=== PATIENT | female | born 1955 | race African-American/Black ===

== ENCOUNTER 2016-09-18 07:25 | Observation (INO) | payer MEDICAID ==
[~2016-09-18] VITALS: Ht 160 cm; Wt 94.8 kg
[~2016-09-18 07:25] MED LIST: ALBU0.084 NEB; ALBUAER3 IN; ALPR2TAB95 PO; ATO40T PO; CARI-277 PO; CARV3.1213 PO; CETI10CH PO; CHOL20007 PO; FURO40TA PO; GABA-339 PO; IPRA0.035 NEB; LEVO500T3 PO; LISI-713 PO; METF-312 PO; NOR10T PO; POT8T PO; PRED-188 PO; QUET200T30 PO
[2016-09-18 09:10] LABS: Urine Bilirubin Negative (Negative); Urine Blood Negative /uL (Negative); Urine Color Yellow (Yellow); Urine Glucose Normal (Normal); Urine Ketone Negative (Negative); Urine Nitrite Negative (Negative); Urine RBC <1 /hpf (0 - 4); Urine Squamous Epithelial Cell FEW /hpf (<5); Urine Urobilinogen Normal (Negative); Urine pH 5.5 (5.0-8.0)
[2016-09-18] MEDS ORDERED: SODIUM CHLORIDE 0.9% 1,000 ML IV ONE (09:10)
[2016-09-18] MEDS ORDERED: METOCLOPRAMIDE HCL 5MG/ml INJ 2ml VIAL IV ONE (09:15)
[2016-09-18] MEDS ORDERED: KETOROLAC TROMETH 30 MG/ML 1ML VIAL IV ONE (09:15)
[2016-09-18 09:44] LABS: Basophils # (auto) 0 uL; Basophils % (auto) 0.8 % (0.0-2.0); Eosinophils # (auto) 0.2 uL; Hemoglobin 13.7 g/dL (12.2-16.2); Lymphocytes # (auto) 2.4 uL; Lymphocytes % (auto) 38.4 % (10.0-50.0); Mean Corpuscular Hemoglobin 30.9 pg (28.0-32.0); Mean Corpuscular Hgb Conc. 32.5 g/dL (32.0-36.0); Mean Corpuscular Volume 94.8 fL (80.0-100.0); Mean Platelet Volume 8.1 fL (7.4-10.4); Monocytes # (auto) 0.7 uL; Monocytes % (auto) 10.6 % (0.0-12.0); Neutrophils # (auto) 2.9 uL; Neutrophils % (auto) 46.2 % (37.0-80.0); Platelet Count (auto) 312 10^3/uL (140-450); White Blood Cell 6.3 10^3/uL (4.4-10.8)
[2016-09-18 09:58] LABS: BUN/Creatinine Ratio 19.8; Calcium 8.8 mg/dL (8.5-10.1); Magnesium 2.1 mg/dL (1.6-2.6)
[2016-09-18 10:00] LABS: Bilirubin, Total 0.3 mg/dL (0.2-1.0); Potassium 4.5 mmol/L (3.5-5.1); Total Protein 7.4 g/dL (6.4-8.2)
[2016-09-18 10:52] VITALS: BP 151/103
== END 2016-09-18 11:48 | disposition home or self-care (01) | DRG 347 ==
LOC: ER 07:25 → OVERFLOW 09:12 → ER 11:48
PROVIDERS: ADMIT Emergency Medicine; ATTEND Emergency Medicine
DX: S33.5XXA Sprain of ligaments of lumbar spine, initial encounter (principal); I11.0 Hypertensive heart disease with heart failure; I50.9 Heart failure, unspecified; S80.12XA Contusion of left lower leg, initial encounter; J44.9 Chronic obstructive pulmonary disease, unspecified; M25.551 Pain in right hip; E11.9 Type 2 diabetes mellitus without complications; F41.9 Anxiety disorder, unspecified; Z96.641 Presence of right artificial hip joint; E44.1 Mild protein-calorie malnutrition; W18.09XA Striking against other object with subsequent fall, initial encounter; Y93.89 Activity, other specified; Y92.89 Other specified places as the place of occurrence of the external cause; Y99.8 Other external cause status; Z83.3 Family history of diabetes mellitus
CPT/HCPCS: 36415; 72100; 73590; 80053; 81001; 83735; 85025; 96361; 96374; 96375; 99285; G0378; G0434; J1885; J2765; J7030

== ENCOUNTER 2016-10-28 18:39 | Observation (INO) | payer MEDICAID ==
[~2016-10-28] VITALS: Ht 157.5 cm; Wt 104.3 kg
[2016-10-28 19:24] LABS: Basophils # (auto) 0 uL; Basophils % (auto) 0.3 % (0.0-2.0); Eosinophils # (auto) 0.2 uL; Eosinophils % (auto) 2.9 % (0.0-7.0); Hematocrit 36.6 % (36.0-46.0); Hemoglobin 12.2 g/dL (12.2-16.2); Lymphocytes # (auto) 3.5 uL; Lymphocytes % (auto) 41.7 % (10.0-50.0); Mean Corpuscular Hemoglobin 31.6 pg (28.0-32.0); Mean Corpuscular Hgb Conc. 33.2 g/dL (32.0-36.0); Mean Corpuscular Volume 95.2 fL (80.0-100.0); Mean Platelet Volume 8.8 fL (7.4-10.4); Monocytes # (auto) 0.9 uL; Monocytes % (auto) 10.5 % (0.0-12.0); Neutrophils # (auto) 3.7 uL; Neutrophils % (auto) 44.6 % (37.0-80.0); Platelet Count (auto) 294 10^3/uL (140-450); Red Cell Distribution Width 13.4 % (11.6-16.0); White Blood Cell 8.3 10^3/uL (4.4-10.8)
[2016-10-28 19:34] LABS: Albumin 3.2 g/dL (3.4-5.0); Anion Gap 8 (5-15); Calcium 8.4 mg/dL (8.5-10.1); Carbon Dioxide 27 mmol/L (21-32); Chloride 110 mmol/L (98-107); Glucose 112 mg/dL (74-106); Magnesium 1.9 mg/dL (1.6-2.6); Potassium 4.6 mmol/L (3.5-5.1); Sodium 145 mmol/L (136-145)
[2016-10-28 19:36] LABS: Aspartate Aminotransferase 50 U/L (15-37); BUN/Creatinine Ratio 22.1; Bilirubin, Total 0.2 mg/dL (0.2-1.0); Blood Urea Nitrogen 38 mg/dL (7-18); GFR African American 39 mL/min; GFR Non-African American 32 mL/min; Total Protein 7.2 g/dL (6.4-8.2)
[2016-10-28 19:44] LABS: Alkaline Phosphatase 84 U/L (45-117)
[2016-10-28] MEDS ORDERED: ONDANSETRON HCL 4 MG/2 ML VIAL IV ONE (23:30)
[2016-10-28] MEDS ORDERED: KETOROLAC TROMETH 30 MG/ML 1ML VIAL IV ONE (23:30)
[2016-10-28] MEDS ORDERED: HYDROmorphone HCL 2 MG/ML VL IV ONE (23:30)
[2016-10-29 00:13] LABS: Anion Gap 7 (5-15); Aspartate Aminotransferase 46 U/L (15-37); BUN/Creatinine Ratio 30.1; Basophils # (auto) 0.1 uL; Basophils % (auto) 1.4 % (0.0-2.0); Blood Urea Nitrogen 40 mg/dL (7-18); Calcium 8.4 mg/dL (8.5-10.1); Carbon Dioxide 26 mmol/L (21-32); Chloride 110 mmol/L (98-107); Eosinophils # (auto) 0.3 uL; GFR African American 52 mL/min; GFR Non-African American 43 mL/min; Glucose 99 mg/dL (74-106); Hematocrit 35.8 % (36.0-46.0); Hemoglobin 11.8 g/dL (12.2-16.2); Lymphocytes # (auto) 3.4 uL; Lymphocytes % (auto) 44.2 % (10.0-50.0); Magnesium 2.1 mg/dL (1.6-2.6); Mean Corpuscular Hemoglobin 30.8 pg (28.0-32.0); Mean Corpuscular Hgb Conc. 32.9 g/dL (32.0-36.0); Mean Corpuscular Volume 93.6 fL (80.0-100.0); Mean Platelet Volume 8.6 fL (7.4-10.4); Monocytes # (auto) 0.9 uL; Monocytes % (auto) 11.9 % (0.0-12.0); Neutrophils % (auto) 38.5 % (37.0-80.0); Platelet Count (auto) 233 10^3/uL (140-450); Potassium 4.5 mmol/L (3.5-5.1); Red Cell Distribution Width 12.2 % (11.6-16.0); Sodium 143 mmol/L (136-145); White Blood Cell 7.7 10^3/uL (4.4-10.8)
[2016-10-29 00:15] LABS: B-Type Natriuretic Peptide 22.39 pg/mL (0-100)
[2016-10-29 00:15] LABS: Urine Bilirubin Negative (Negative); Urine Blood Negative /uL (Negative); Urine Color Yellow (Yellow); Urine Glucose Normal (Normal); Urine Ketone Negative (Negative); Urine Nitrite Negative (Negative); Urine RBC <1 /hpf (0 - 4); Urine Urobilinogen Normal (Negative); Urine pH 5.5 (5.0-8.0)
[2016-10-29 00:18] LABS: Alkaline Phosphatase 77 U/L (45-117); Bilirubin, Total 0.4 mg/dL (0.2-1.0); Total Protein 6.8 g/dL (6.4-8.2)
[2016-10-29 00:19] LABS: Temperature: 23.1 C (20.0-25.0)
[2016-10-29 00:25] LABS: INR 0.96 (0.9-1.15); Partial Thromboplastin Time 25.4 sec (22.64-33.71); Prothrombin Time 10.4 sec (9.37-12.3)
[2016-10-29 05:09] VITALS: BP 118/88
== END 2016-10-29 05:30 | disposition home or self-care (01) | DRG 141 ==
LOC: ER 18:40 → OVERFLOW 23:29 → ER 10-29 05:30
PROVIDERS: ADMIT Emergency Medicine; ATTEND Emergency Medicine
DX: J45.901 Unspecified asthma with (acute) exacerbation (principal); I11.0 Hypertensive heart disease with heart failure; I50.9 Heart failure, unspecified; M54.16 Radiculopathy, lumbar region; E11.9 Type 2 diabetes mellitus without complications; M19.90 Unspecified osteoarthritis, unspecified site; F41.9 Anxiety disorder, unspecified
CPT/HCPCS: 36415; 71010; 80053; 81001; 83735; 83880; 84484; 85025; 85610; 85730; 93005; 96374; 96375; 99285; G0378; J1170; J1885; J2405

== ENCOUNTER → 2016-10-29 | Outpatient (CLI) | payer MEDICAID | END | disposition home or self-care (01) | LOC: Rad HDHVI 13:38 | PROVIDERS: ATTEND Internal Medicine Cardiovascular Disease | DX: R00.9 Unspecified abnormalities of heart beat (principal) | CPT/HCPCS: 93306 ==

== ENCOUNTER 2016-12-04 06:01 | Inpatient (IN) | payer MEDICAID ==
[~2016-12-04] VITALS: Ht 160 cm; Wt 104.0 kg
[~2016-12-04 06:01] MED LIST changes: +CAR3125T PO; -CARV3.1213 PO; +LEVO500T21 PO; -LEVO500T3 PO; -METF-312 PO; +METF-370 PO
[2016-12-04] MEDS ORDERED: IPRATROPIUM BROM 0.5 MG/2.5ML INH SOL NEB ONE ×2 (06:15→10:00)
[2016-12-04] MEDS ORDERED: ALBUTEROL SULF 2.5 MG/0.5ML(0.5%) NEB SOLN NEB ONE ×2 (06:15→10:00)
[2016-12-04 08:13] LABS: Basophils # (auto) 0.1 uL; CONDITION Y; Eosinophils # (auto) 0.1 uL; Eosinophils % (auto) 1.4 % (0.0-7.0); Hematocrit 39.2 % (36.0-46.0); Hemoglobin 13.3 g/dL (12.2-16.2); Lymphocytes # (auto) 2.4 uL; Mean Corpuscular Hemoglobin 31.9 pg (28.0-32.0); Mean Platelet Volume 9.1 fL (7.4-10.4); Monocytes # (auto) 0.6 uL; Monocytes % (auto) 7.6 % (0.0-12.0); Neutrophils # (auto) 5.2 uL; Platelet Count (auto) 295 10^3/uL (140-450); Red Cell Distribution Width 13.1 % (11.6-16.0); SUSPECT SEE PRINTOUT; White Blood Cell 8.4 10^3/uL (4.4-10.8)
[2016-12-04 08:19] LABS: INR 0.93 (0.9-1.15); Partial Thromboplastin Time 23.9 sec (22.64-33.71); Prothrombin Time 10.1 sec (9.37-12.3)
[2016-12-04 08:39] LABS: Alkaline Phosphatase 82 U/L (45-117); Anion Gap 7 (5-15); Aspartate Aminotransferase 32 U/L (15-37); BUN/Creatinine Ratio 27.6; Bilirubin, Total 0.2 mg/dL (0.2-1.0); Blood Urea Nitrogen 21 mg/dL (7-18); Calcium 8.7 mg/dL (8.5-10.1); Carbon Dioxide 25 mmol/L (21-32); Chloride 109 mmol/L (98-107); GFR African American 99 mL/min; GFR Non-African American 82 mL/min; Glucose 122 mg/dL (74-106); Magnesium 2.1 mg/dL (1.6-2.6); Potassium 4.3 mmol/L (3.5-5.1); Sodium 141 mmol/L (136-145); Total Protein 7.2 g/dL (6.4-8.2)
[2016-12-04 08:41] LABS: B-Type Natriuretic Peptide 54.19 pg/mL (0-100)
[2016-12-04 08:52] LABS: Temperature: 24.1 C (20.0-25.0)
[2016-12-04 09:28] LABS: Urine Bilirubin Negative (Negative); Urine Blood Negative /uL (Negative); Urine Color Yellow (Yellow); Urine Glucose Normal (Normal); Urine Ketone Negative (Negative); Urine Nitrite Negative (Negative); Urine RBC <1 /hpf (0 - 4); Urine Squamous Epithelial Cell FEW /hpf (<5); Urine Urobilinogen Normal (Negative)
[2016-12-04] MEDS ORDERED: SODIUM CHLORIDE 0.9% 1,000 ML IV SCH (09:55)
[2016-12-04] MEDS ORDERED: LORazepam 0.5 MG TAB PO PRN (10:00)
[2016-12-04] MEDS ORDERED: PATIENTS OWN MEDICATION (Lisinopril (Zestril) 1 TAB) PO SCH (10:00)
[2016-12-04] MEDS ORDERED: DEXTROSE (50%) 50ML SYRG IV PRN (10:00)
[2016-12-04] MEDS ORDERED: methylPREDNISolone SOD SUCC 125 MG/2 ML VL IV ONE (10:00)
[2016-12-04] MEDS ORDERED: CETIRIZINE HCL 10 MG PO PRN (10:00)
[2016-12-04] MEDS ORDERED: TEMAZEPAM 15 MG CAP PO PRN (10:00)
[2016-12-04] MEDS ORDERED: MORPHINE SULF INJ 2 MG/ML SYRINGE 1ML IV PRN (10:00)
[2016-12-04] MEDS ORDERED: LACTULOSE 20Gm/30ML SOLN PO PRN (10:00)
[2016-12-04] MEDS ORDERED: HYDROcodone-ACET 10/325MG TAB PO PRN (10:00)
[2016-12-04] MEDS ORDERED: PATIENTS OWN MEDICATION (Atorvastatin Calcium (Lipitor) 1 TAB) PO SCH ×2 (10:00)
[2016-12-04] MEDS ORDERED: CARISOPRODOL 350 MG TAB PO PRN (10:00)
[2016-12-04] MEDS ORDERED: PROMETHAZINE HCL 25 MG/ML 1ML IV PRN (10:00)
[2016-12-04] MEDS ORDERED: NITROGLYCERIN 0.4 MG SL TAB SL PRN (10:00)
[2016-12-04] MEDS ORDERED: ALBUTEROL SULF 2.5 MG/0.5ML(0.5%) NEB SOLN NEB PRN (10:00)
[2016-12-04] MEDS ORDERED: PATIENTS OWN MEDICATION (Cholecalciferol (Vitamin D3) 1 TAB) PO SCH ×2 (10:00)
[2016-12-04] MEDS ORDERED: ACETAMINOPHEN 500 MG TAB PO PRN (10:00)
[2016-12-04] MEDS ORDERED: LISINOPRIL 20 MG TAB PO ONE (10:30)
[2016-12-04] MEDS ORDERED: LORATADINE 10 MG TAB PO ONE (10:30)
[2016-12-04] MEDS: DOXYCYCLINE HYC 100MG/250ML 250 ML IV SCH ×2 (10:58→22:01)
[2016-12-04] MEDS: ASPirin 81 mg TAB PO SCH (10:58)
[2016-12-04] MEDS: CHOLECALCIFEROL (VITD3) 1,000 UNIT TAB PO SCH (10:59)
[2016-12-04] MEDS: POTASSIUM CHLORIDE 8 MEQ TAB PO SCH (10:59)
[2016-12-04] MEDS: FUROSEMIDE 40 MG TAB PO SCH (10:59)
[2016-12-04] MEDS: ENOXAPARIN SOD 40 MG/0.4 ML SYRINGE SC SCH (10:59)
[2016-12-04 11:00] VITALS: BP 160/76
[2016-12-04] MEDS: NITROGLYCERIN 0.2MG/HR TOPICAL PATCH TD SCH (11:00)
[2016-12-04] MEDS: CARVEDILOL 3.125 MG TAB PO SCH ×2 (11:00→22:00)
[2016-12-04] MEDS: MORPHINE SULF INJ 2 MG/ML SYRINGE 1ML IV PRN ×2 (11:09→16:18)
[2016-12-04] MEDS: IPRATROPIUM BROM 0.5 MG/2.5ML INH SOL NEB SCH (11:34)
[2016-12-04] MEDS: ALBUTEROL SULF 2.5 MG/0.5ML(0.5%) NEB SOLN NEB SCH (11:35)
[2016-12-04 11:57] VITALS: BP 162/75
[2016-12-04] MEDS ORDERED: IOHEXOL 350 MG/ML 100ML IJ ONE (12:24)
[2016-12-04] MEDS: InsuLIN REG 1unit/0.01ml Soln (100units/ml) SC SCH ×3 (13:37→22:01)
[2016-12-04] MEDS: ACCU-CHEK COMFORT CURVE STRIP VI SCH ×3 (13:37→22:01)
[2016-12-04] MEDS ORDERED: ALPRAZOLAM PO SCH (14:00)
[2016-12-04] MEDS ORDERED: PATIENTS OWN MEDICATION (Gabapentin 1 TAB) PO SCH ×2 (14:00)
[2016-12-04] MEDS: methylPREDNISolone SOD SUCC 40 MG/ML VL IV SCH ×2 (14:13→17:18)
[2016-12-04] MEDS: ALPRAZolam 0.5 MG TAB PO SCH (14:13)
[2016-12-04] MEDS: GABAPENTIN 300 MG CAP PO SCH ×2 (14:14→21:59)
[2016-12-04 17:00] VITALS: BP 157/74
[2016-12-04] MEDS: QUEtiapine FUMARATE 100 MG TAB PO SCH (17:20)
[2016-12-04] MEDS ORDERED: QUETIAPINE FUMERATE 200 MG PO SCH (18:00)
[2016-12-04 22:00] VITALS: BP 123/70
[2016-12-04] MEDS ORDERED: ATORVASTATIN 20 MG TAB PO SCH (22:00)
[2016-12-04] MEDS: LISINOPRIL 20 MG TAB PO SCH (22:00)
[2016-12-04] MEDS: HYDROmorphone HCL 2 MG/ML VL IV PRN (22:02)
[2016-12-05] MEDS: methylPREDNISolone SOD SUCC 40 MG/ML VL IV SCH ×4 (00:05→17:25)
[2016-12-05] MEDS: ALPRAZolam 0.5 MG TAB PO SCH ×3 (00:06→14:00)
[2016-12-05] MEDS: IPRATROPIUM BROM 0.5 MG/2.5ML INH SOL NEB SCH ×4 (00:16→18:00)
[2016-12-05] MEDS: ALBUTEROL SULF 2.5 MG/0.5ML(0.5%) NEB SOLN NEB SCH ×4 (00:16→18:00)
[2016-12-05 05:00] VITALS: BP 143/68
[2016-12-05] MEDS: GABAPENTIN 300 MG CAP PO SCH ×2 (05:42→13:11)
[2016-12-05] MEDS: HYDROmorphone HCL 2 MG/ML VL IV PRN ×3 (06:23→19:06)
[2016-12-05] MEDS: ACCU-CHEK COMFORT CURVE STRIP VI SCH ×3 (06:56→17:24)
[2016-12-05] MEDS: InsuLIN REG 1unit/0.01ml Soln (100units/ml) SC SCH ×3 (06:57→17:30)
[2016-12-05 07:30] VITALS: BP 143/68
[2016-12-05 08:00] LABS: Cholesterol 170 mg/dL (< 200); HDL Cholesterol 100 mg/dL (40-59); LDL Cholesterol 74 mg/dL (< 100); Triglycerides 38 mg/dL (< 150)
[2016-12-05 08:30] VITALS: BP 144/73
[2016-12-05] MEDS: DOXYCYCLINE HYC 100MG/250ML 250 ML IV SCH (09:44)
[2016-12-05] MEDS: LISINOPRIL 20 MG TAB PO SCH (09:46)
[2016-12-05] MEDS: CARVEDILOL 3.125 MG TAB PO SCH (09:46)
[2016-12-05] MEDS: CHOLECALCIFEROL (VITD3) 1,000 UNIT TAB PO SCH (09:47)
[2016-12-05] MEDS: FUROSEMIDE 40 MG TAB PO SCH (09:47)
[2016-12-05] MEDS: ENOXAPARIN SOD 40 MG/0.4 ML SYRINGE SC SCH (09:48)
[2016-12-05] MEDS: NITROGLYCERIN 0.2MG/HR TOPICAL PATCH TD SCH (09:48)
[2016-12-05] MEDS: ASPirin 81 mg TAB PO SCH (09:48)
[2016-12-05] MEDS: POTASSIUM CHLORIDE 8 MEQ TAB PO SCH (09:58)
[2016-12-05] MEDS ORDERED: LORATADINE 10 MG TAB PO SCH (10:00)
[2016-12-05] MEDS ORDERED: ALPRAZolam 0.5 MG TAB PO ONE (10:45)
[2016-12-05 12:50] VITALS: BP 137/78
[2016-12-05] MEDS ORDERED: DOXY-216 PO (15:11)
[2016-12-05 16:43] VITALS: BP 130/68
[2016-12-05] MEDS: QUEtiapine FUMARATE 100 MG TAB PO SCH (17:25)
[2016-12-05 18:51] VITALS: BP 137/78
== END 2016-12-05 19:45 | disposition home or self-care (01) | DRG 140 ==
LOC: ER 06:01 → TELE 06:02 → TELE-CENTR 13:29
PROVIDERS: ADMIT Internal Medicine; ATTEND Nurse Practitioner Acute Care
DX: J44.1 Chronic obstructive pulmonary disease with (acute) exacerbation (principal); I11.0 Hypertensive heart disease with heart failure; E44.0 Moderate protein-calorie malnutrition; Z68.41 Body mass index [BMI] 40.0-44.9, adult; J45.901 Unspecified asthma with (acute) exacerbation; I48.91 Unspecified atrial fibrillation; I50.9 Heart failure, unspecified; E11.9 Type 2 diabetes mellitus without complications; G89.4 Chronic pain syndrome; B19.20 Unspecified viral hepatitis C without hepatic coma; E66.9 Obesity, unspecified; F32.9 Major depressive disorder, single episode, unspecified; F41.9 Anxiety disorder, unspecified; I50.32 Chronic diastolic (congestive) heart failure; Z82.49 Family history of ischemic heart disease and other diseases of the circulatory system; Z83.3 Family history of diabetes mellitus; Z85.3 Personal history of malignant neoplasm of breast; Z90.13 Acquired absence of bilateral breasts and nipples; M19.90 Unspecified osteoarthritis, unspecified site; Z90.710 Acquired absence of both cervix and uterus; Z90.89 Acquired absence of other organs; Z80.9 Family history of malignant neoplasm, unspecified; Z71.9 Counseling, unspecified; Z84.1 Family history of disorders of kidney and ureter
CPT/HCPCS: 36415; 71010; 71275; 80053; 80061; 80307; 81001; 82550; 82962; 83036; 83735; 83880; 84484; 85025; 85379; 85610; 85652; 85730; 86141; 93005; 94640; J1815; J3490

== ENCOUNTER 2017-08-03 14:56 | Emergency (ER) | payer MEDICAID ==
[~2017-08-03] VITALS: Ht 162.6 cm; Wt 95.3 kg
[~2017-08-03 14:56] MED LIST changes: +DOXY-216 PO; -LEVO500T21 PO
[2017-08-03 17:19] LABS: Basophils # (auto) 0.1 uL; Basophils % (auto) 0.8 % (0.0-2.0); Eosinophils # (auto) 0.3 uL; Eosinophils % (auto) 3.7 % (0.0-7.0); Hematocrit 43.4 % (36.0-46.0); Hemoglobin 14.9 g/dL (12.2-16.2); Lymphocytes # (auto) 3.1 uL; Lymphocytes % (auto) 36.8 % (10.0-50.0); Mean Corpuscular Hgb Conc. 34.3 g/dL (32.0-36.0); Mean Corpuscular Volume 96.2 fL (80.0-100.0); Monocytes # (auto) 0.8 uL; Monocytes % (auto) 9.9 % (0.0-12.0); Neutrophils # (auto) 4.2 uL; Neutrophils % (auto) 48.8 % (37.0-80.0); Nucleated Red Blood Cells % 0.2 %; Platelet Count (auto) 269 10^3/uL (140-450); Red Blood Cells 4.51 10^6/uL (4.0-5.20); Red Cell Distribution Width 13.1 % (11.8-14.3); White Blood Cell 8.5 10^3/uL (4.4-10.8)
[2017-08-03 17:37] LABS: Alanine Aminotransferase 54 U/L (13-56); Albumin 3.1 g/dL (3.4-5.0); Alkaline Phosphatase 76 U/L (45-117); Anion Gap 5 (5-15); Aspartate Aminotransferase 32 U/L (15-37); BUN/Creatinine Ratio 8.6; Bilirubin, Total 0.4 mg/dL (0.2-1.0); Blood Urea Nitrogen 6 mg/dL (7-18); Calcium 9.1 mg/dL (8.5-10.1); Carbon Dioxide 25 mmol/L (21-32); Chloride 110 mmol/L (98-107); GFR African American 109 mL/min; GFR Non-African American 90 mL/min; Glucose 94 mg/dL (74-106); Magnesium 2.2 mg/dL (1.6-2.6); Potassium 4.1 mmol/L (3.5-5.1); Sodium 140 mmol/L (136-145); Total Protein 7.8 g/dL (6.4-8.2)
[2017-08-03 19:02] VITALS: BP 129/78
== END 2017-08-04 01:11 | disposition left against medical advice (07) ==
LOC: ER 14:56
DX: R07.9 Chest pain, unspecified (principal); Z53.21 Procedure and treatment not carried out due to patient leaving prior to being seen by health care provider
CPT/HCPCS: 36415; 71046; 80053; 83735; 84484; 85025; 93005

== ENCOUNTER 2019-09-12 10:05 | Inpatient (IN) | payer MEDICAID ==
[~2019-09-12] VITALS: Ht 160 cm; Wt 102.3 kg
[~2019-09-12 10:05] MED LIST changes: -DOXY-216 PO; +DOXY-286 PO; +FURO1TAB31 PO; -FURO40TA PO
[2019-09-12 10:53] LABS: Basophils # (auto) 0 10 ^3/uL (0-0.2); Basophils % (auto) 0.3 % (0.0-2.0); Eosinophils # (auto) 0.1 10 ^3/uL (0-0.8); Eosinophils % (auto) 2.2 % (0.0-7.0); Hematocrit 44.8 % (36.0-46.0); Hemoglobin 14.7 g/dL (12.2-16.2); Lymphocytes # (auto) 1.8 10 ^3/uL (0.4-5.4); Mean Corpuscular Hemoglobin 31.6 pg (28.0-32.0); Mean Corpuscular Hgb Conc. 32.7 g/dL (32.0-36.0); Mean Corpuscular Volume 96.6 fL (80.0-100.0); Monocytes # (auto) 0.7 10 ^3/uL (0-1.3); Monocytes % (auto) 13.9 % (0.0-12.0); Neutrophils # (auto) 2.4 10 ^3/uL (1.6-8.6); Neutrophils % (auto) 48.6 % (37.0-80.0); Nucleated Red Blood Cells % 0.1 %; Platelet Count (auto) 250 10^3/uL (140-450); Red Blood Cells 4.64 10^6/uL (4.0-5.20); Red Cell Distribution Width 13.1 % (11.8-14.3)
[2019-09-12 11:07] LABS: Urine Bacteria NONE SEEN /hpf (None Seen); Urine Blood Negative /uL (Negative); Urine Mucus FEW (None Seen); Urine Specific Gravity 1.016 (1.001-1.035); Urine WBC 1 /hpf (0 - 5)
[2019-09-12] MEDS ORDERED: PRA1C PO (11:07)
[2019-09-12] MEDS ORDERED: OXY10CRT PO (11:07)
[2019-09-12] MEDS ORDERED: ESCI20TA51 PO (11:09)
[2019-09-12] MEDS ORDERED: DIPH25CA46 PO (11:09)
[2019-09-12 11:12] LABS: Albumin 3.4 g/dL (3.4-5.0); Anion Gap 8 (5-15); Blood Urea Nitrogen 8 mg/dL (7-18); Calcium 9.5 mg/dL (8.5-10.1); Carbon Dioxide 22 mmol/L (21-32); Chloride 113 mmol/L (98-107); Glucose 122 mg/dL (74-106); Potassium 4.3 mmol/L (3.5-5.1); Sodium 143 mmol/L (136-145)
[2019-09-12] MEDS ORDERED: ALBUTEROL SULF 2.5 MG/0.5ML(0.5%) NEB SOLN NEB ONE ×2 (11:15→15:45)
[2019-09-12] MEDS ORDERED: methylPREDNISolone SOD SUCC 125 MG/2 ML VL IV ONE (11:15)
[2019-09-12] MEDS ORDERED: IPRATROPIUM BROM 0.5 MG/2.5ML INH SOL NEB ONE ×2 (11:15→15:45)
[2019-09-12] MEDS ORDERED: AZITHROMYCIN 500MG/ 250ML 250 ML IV ONE (11:15)
[2019-09-12] MEDS ORDERED: cefTRIAXone 1GM/50ML D5W 50 ML IV ONE (11:15)
[2019-09-12 11:17] LABS: Alanine Aminotransferase 59 U/L (13-56); Alkaline Phosphatase 72 U/L (45-117); Aspartate Aminotransferase 46 U/L (15-37); BUN/Creatinine Ratio 9.6; Bilirubin, Total 0.5 mg/dL (0.2-1.0); GFR African American 89 mL/min; GFR Non-African American 74 mL/min; INR 1.02 (0.9-1.15); Partial Thromboplastin Time 26.2 sec (23.64-32.05); Total Protein 7.9 g/dL (6.4-8.2)
[2019-09-12] MEDS ORDERED: SODIUM CHLORIDE 0.9% 1,000 ML IV ONE (11:27)
[2019-09-12] MEDS ORDERED: LORazepam 2MG/ML-1ML VIAL IV ONE (13:30)
[2019-09-12] MEDS ORDERED: PROMETHAZINE HCL 25 MG/ML 1ML IV ONE (15:45)
[2019-09-12] MEDS ORDERED: MEPERIDINE HCL (50 MG/ML) 1 ML VIAL IV ONE (15:45)
[2019-09-12] MEDS ORDERED: PROMETHAZINE HCL 25 MG/ML 1ML IV PRN (16:45)
[2019-09-12] MEDS ORDERED: ACETAMINOPHEN 500 MG TAB PO PRN (16:45)
[2019-09-12] MEDS ORDERED: NITROGLYCERIN 0.4 MG SL TAB SL PRN (16:45)
[2019-09-12] MEDS ORDERED: TEMAZEPAM 15 MG CAP PO PRN (16:45)
[2019-09-12] MEDS ORDERED: DEXTROSE (50%) 50ML SYRG IV PRN (16:45)
[2019-09-12] MEDS ORDERED: ALBUTEROL SULF 2.5 MG/0.5ML(0.5%) NEB SOLN NEB PRN (16:45)
[2019-09-12] MEDS ORDERED: CARISOPRODOL 350 MG TAB PO PRN (16:45)
[2019-09-12] MEDS ORDERED: LACTULOSE 20Gm/30ML SOLN PO PRN (16:45)
[2019-09-12] MEDS: methylPREDNISolone SOD SUCC 40 MG/ML VL IV SCH (17:06)
[2019-09-12] MEDS ORDERED: PRAZOSIN HCL 1 MG CAP PO SCH (18:00)
[2019-09-12] MEDS ORDERED: QUETIAPINE FUMERATE 200 MG PO SCH (18:00)
[2019-09-12] MEDS: ACCU-CHEK COMFORT CURVE STRIP VI SCH ×2 (18:14→21:50)
[2019-09-12] MEDS: CARVEDILOL 3.125 MG TAB PO SCH (18:15)
[2019-09-12] MEDS: InsuLIN REG 1unit/0.01ml Soln (100units/ml) SC SCH ×2 (18:26→21:50)
[2019-09-12] MEDS ORDERED: ASPI-231 PO (19:06)
--- NOTE | 2019-09-12 20:12 | NUR ---
Opening Shift Note Assumed care of patient, awake and alert. No S/S of distress/SOB or pain. Instructed on POC and to call for assist PRN, will continue to monitor for changes Q1hr and PRN.Complained that she has cough, but no med. for cough, paged hospitalist, awaiting response.
--- NOTE | 2019-09-12 20:28 | NUR ---
returned call Cyril Cleaning returned call, updated on patient status and reason for call, orders received of Guafenesin 200mg.susp.p.o every 6hours as needed. Continue care.
[2019-09-12] MEDS: IPRATROPIUM BROM 0.5 MG/2.5ML INH SOL NEB SCH (20:38)
[2019-09-12] MEDS: ALBUTEROL SULF 2.5 MG/0.5ML(0.5%) NEB SOLN NEB SCH (20:38)
[2019-09-12] MEDS: guaiFENesin 200 MG/10 ML UD PO PRN (21:21)
[2019-09-12] MEDS: ALPRAZolam 0.5 MG TAB PO SCH (21:23)
[2019-09-12] MEDS: GABAPENTIN 300 MG CAP PO SCH (21:23)
[2019-09-12] MEDS: oxyCODONE ER 10 MG TAB PO SCH (21:24)
[2019-09-12] MEDS: LISINOPRIL 20 MG TAB PO SCH (21:26)
[2019-09-12] MEDS: SODIUM CHLOR 0.9% PF (SALINE LOCK) 10ML VIAL/SYR IV SCH (21:49)
[2019-09-12 21:59] VITALS: BP 139/76
[2019-09-12 22:30] VITALS: BP 130/74
[2019-09-12 23:48] LABS: Alcohol, Urine < 3.0 mg/dL (0-5); Amphetamine Screen, Urine NEGATIVE (NEGATIVE); Barbiturate Scree,Urine NEGATIVE (NEGATIVE); Benzodiazephine Screen, Urine NEGATIVE (NEGATIVE); Cocaine Screen, Urine NEGATIVE (NEGATIVE); Opiate Scree,Urine NEGATIVE (NEGATIVE); Phencyclidine Screen, Urine POSITIVE (NEGATIVE)
[2019-09-12 23:57] LABS: Cannabinoid Screen, Urine POSITIVE (NEGATIVE)
[2019-09-13] MEDS: IPRATROPIUM BROM 0.5 MG/2.5ML INH SOL NEB SCH ×3 (00:36→12:10)
[2019-09-13] MEDS: ALBUTEROL SULF 2.5 MG/0.5ML(0.5%) NEB SOLN NEB SCH ×3 (00:36→12:10)
[2019-09-13] MEDS: methylPREDNISolone SOD SUCC 40 MG/ML VL IV SCH (05:06)
[2019-09-13] MEDS: traMADol HCL 50 MG TAB PO PRN ×2 (05:39→06:39)
[2019-09-13] MEDS: SODIUM CHLOR 0.9% PF (SALINE LOCK) 10ML VIAL/SYR IV SCH (05:40)
[2019-09-13] MEDS: guaiFENesin 200 MG/10 ML UD PO PRN (05:40)
[2019-09-13] MEDS: GABAPENTIN 300 MG CAP PO SCH (05:40)
[2019-09-13] MEDS: ALPRAZolam 0.5 MG TAB PO SCH (05:40)
[2019-09-13 05:55] VITALS: BP 161/75
[2019-09-13] MEDS: ACCU-CHEK COMFORT CURVE STRIP VI SCH ×2 (06:38→11:30)
[2019-09-13] MEDS: InsuLIN REG 1unit/0.01ml Soln (100units/ml) SC SCH ×2 (06:39→11:30)
--- NOTE | 2019-09-13 06:55 | NUR ---
Report given to Ankush Serna, patient is resting no resp. distress.
[2019-09-13 08:01] VITALS: BP 133/76
[2019-09-13 08:22] VITALS: BP 133/76
[2019-09-13] MEDS: CARVEDILOL 3.125 MG TAB PO SCH (08:27)
[2019-09-13] MEDS: LISINOPRIL 20 MG TAB PO SCH (09:26)
[2019-09-13] MEDS: oxyCODONE ER 10 MG TAB PO SCH (09:26)
[2019-09-13] MEDS ORDERED: AZITHROMYCIN 500MG/ 250ML 250 ML IV SCH (10:00)
[2019-09-13] MEDS ORDERED: ESCITALOPRAM OXALATE 20 MG PO SCH (10:00)
[2019-09-13] MEDS ORDERED: FUROSEMIDE 40 MG TAB PO SCH (10:00)
[2019-09-13] MEDS ORDERED: POTASSIUM CHLORIDE 8 MEQ TAB PO SCH (10:00)
[2019-09-13] MEDS ORDERED: ENOXAPARIN SOD 40 MG/0.4 ML SYRINGE SC SCH (10:00)
[2019-09-13 13:06] VITALS: BP 139/78
[2019-09-13 13:14] VITALS: BP 133/90
--- NOTE | 2019-09-13 14:47 | NUR ---
patient discharged home with family. telemetry box removed and returned to telemetry department. all iv access discontinued. all discharge instructions given. all discharge paperwork signed.
[2019-09-14] MEDS ORDERED: LISINOPRIL 20 MG TAB PO SCH (10:00)
== END 2019-09-13 16:30 | disposition home or self-care (01) | DRG 140 ==
LOC: ER 10:05 → TELE 10:06 → TELE-WESTW 17:56
PROVIDERS: ADMIT Internal Medicine; ATTEND Internal Medicine
DX: J44.1 Chronic obstructive pulmonary disease with (acute) exacerbation (principal); I11.0 Hypertensive heart disease with heart failure; I50.9 Heart failure, unspecified; F16.10 Hallucinogen abuse, uncomplicated; E11.9 Type 2 diabetes mellitus without complications; G89.4 Chronic pain syndrome; F41.9 Anxiety disorder, unspecified; Z82.49 Family history of ischemic heart disease and other diseases of the circulatory system; Z85.3 Personal history of malignant neoplasm of breast; Z83.3 Family history of diabetes mellitus; Z90.13 Acquired absence of bilateral breasts and nipples; Z90.710 Acquired absence of both cervix and uterus; Z60.2 Problems related to living alone
CPT/HCPCS: 36415; 71045; 80053; 80307; 81001; 82962; 83036; 83880; 84443; 84484; 85025; 85379; 85610; 85730; 87070; 87804; 87880; 93971; 94640; G0378; J0696; J1815

== ENCOUNTER 2020-06-14 19:13 | Emergency (ER) | payer MEDICARE, OTHER ==
[~2020-06-14] VITALS: Ht 160 cm; Wt 108.4 kg
[~2020-06-14 19:13] MED LIST changes: +ASPI-231 PO; -ATO40T PO; -CETI10CH PO; +DIPH25CA46 PO; -DOXY-286 PO; +ESCI-34 PO; -METF-370 PO; -NOR10T PO; +OXY10CRT PO; +PRA1C PO; -PRED-188 PO
[2020-06-15] MEDS ORDERED: ACETAMINOPHEN/CODEINE#3 (300/30mg) TAB PO ONE (00:45)
[2020-06-15] MEDS ORDERED: ONDANSETRON ODT 4 MG TAB PO ONE (00:45)
[2020-06-15 01:24] LABS: Basophils # (auto) 0.1 10 ^3/uL (0-0.2); Basophils % (auto) 1.1 % (0.0-2.0); Eosinophils # (auto) 0.2 10 ^3/uL (0-0.8); Eosinophils % (auto) 2.2 % (0.0-7.0); Hematocrit 38.9 % (36.0-46.0); Hemoglobin 13.3 g/dL (12.2-16.2); Lymphocytes # (auto) 3.4 10 ^3/uL (0.4-5.4); Mean Corpuscular Hemoglobin 32.7 pg (28.0-32.0); Mean Corpuscular Hgb Conc. 34.2 g/dL (32.0-36.0); Mean Corpuscular Volume 95.7 fL (80.0-100.0); Monocytes # (auto) 0.9 10 ^3/uL (0-1.3); Monocytes % (auto) 11.4 % (0.0-12.0); Neutrophils # (auto) 3.4 10 ^3/uL (1.6-8.6); Neutrophils % (auto) 42.3 % (37.0-80.0); Nucleated Red Blood Cells % 0.1 %; Platelet Count (auto) 194 10^3/uL (140-450); Red Blood Cells 4.06 10^6/uL (4.0-5.20); Red Cell Distribution Width 12.4 % (11.8-14.3)
[2020-06-15 01:41] LABS: Albumin 2.9 g/dL (3.4-5.0); Anion Gap 7 (5-15); Blood Urea Nitrogen 25 mg/dL (7-18); Calcium 8.7 mg/dL (8.5-10.1); Carbon Dioxide 27 mmol/L (21-32); Chloride 104 mmol/L (98-107); Glucose 314 mg/dL (74-106); Sodium 138 mmol/L (136-145)
[2020-06-15 02:00] LABS: Alanine Aminotransferase 58 U/L (13-56); Alkaline Phosphatase 66 U/L (45-117); Aspartate Aminotransferase 45 U/L (15-37); BUN/Creatinine Ratio 18.2; Bilirubin, Total 0.4 mg/dL (0.2-1.0); GFR African American 50 mL/min; GFR Non-African American 41 mL/min; Total Protein 6.5 g/dL (6.4-8.2)
[2020-06-15 03:12] VITALS: BP 142/84
== END 2020-06-15 03:26 | disposition home or self-care (01) ==
LOC: ER 19:13
DX: R60.0 Localized edema (principal); E11.65 Type 2 diabetes mellitus with hyperglycemia; I13.0 Hypertensive heart and chronic kidney disease with heart failure and stage 1 through stage 4 chronic kidney disease, or unspecified chronic kidney disease; E11.22 Type 2 diabetes mellitus with diabetic chronic kidney disease; N18.30 Chronic kidney disease, stage 3 unspecified; I50.89 Other heart failure; J44.9 Chronic obstructive pulmonary disease, unspecified; Z90.710 Acquired absence of both cervix and uterus
CPT/HCPCS: 36415; 71045; 80053; 83880; 84484; 85025; 93005; 93971; 99285; Q0162

== ENCOUNTER 2021-03-18 12:03 | Emergency (ER) | payer MEDICARE, MEDICAID ==
[~2021-03-18] VITALS: Ht 160 cm; Wt 99.8 kg
[2021-03-18 12:07] VITALS: BP 125/102
[2021-03-18 13:05] LABS: Basophils # (auto) 0 10 ^3/uL (0-0.2); Basophils % (auto) 0.5 % (0.0-2.0); Eosinophils # (auto) 0.2 10 ^3/uL (0-0.8); Eosinophils % (auto) 2.9 % (0.0-7.0); Hematocrit 42.3 % (36.0-46.0); Hemoglobin 13.8 g/dL (12.2-16.2); Lymphocytes # (auto) 1.8 10 ^3/uL (0.4-5.4); Lymphocytes % (auto) 28.6 % (10.0-50.0); Mean Corpuscular Hemoglobin 31.4 pg (28.0-32.0); Mean Corpuscular Hgb Conc. 32.5 g/dL (32.0-36.0); Mean Corpuscular Volume 96.6 fL (80.0-100.0); Monocytes # (auto) 0.6 10 ^3/uL (0-1.3); Monocytes % (auto) 9.4 % (0.0-12.0); Neutrophils # (auto) 3.8 10 ^3/uL (1.6-8.6); Neutrophils % (auto) 58.6 % (37.0-80.0); Nucleated Red Blood Cells % 0.1 %; Red Blood Cells 4.38 10^6/uL (4.0-5.20); Red Cell Distribution Width 12.8 % (11.8-14.3); White Blood Cell 6.5 10^3/uL (4.4-10.8)
[2021-03-18 13:10] LABS: Albumin 2.7 g/dL (3.4-5.0); Anion Gap 6 (5-15); Blood Urea Nitrogen 18 mg/dL (7-18); Carbon Dioxide 27 mmol/L (21-32); Chloride 109 mmol/L (98-107); Glucose 129 mg/dL (74-106); Magnesium 2.2 mg/dL (1.6-2.6); Potassium 3.9 mmol/L (3.5-5.1); Sodium 142 mmol/L (136-145)
[2021-03-18 13:16] LABS: Alanine Aminotransferase 60 U/L (13-56); Alkaline Phosphatase 101 U/L (45-117); Aspartate Aminotransferase 36 U/L (15-37); BUN/Creatinine Ratio 16.5; Bilirubin, Total 0.3 mg/dL (0.2-1.0); GFR African American 65 mL/min; GFR Non-African American 53 mL/min
[2021-03-18 14:15] LABS: Urine Bacteria NONE SEEN /hpf (None Seen); Urine Blood Negative /uL (Negative); Urine Specific Gravity 1.017 (1.001-1.035); Urine WBC 1 /hpf (0 - 5)
[2021-03-18] MEDS ORDERED: ALBUTEROL SULF 2.5 MG/0.5ML(0.5%) NEB SOLN NEB ONE (20:00)
== END 2021-03-18 23:24 | disposition home or self-care (01) ==
LOC: ER 12:03
DX: J44.1 Chronic obstructive pulmonary disease with (acute) exacerbation (principal); M25.562 Pain in left knee; I11.0 Hypertensive heart disease with heart failure; I50.9 Heart failure, unspecified; E11.9 Type 2 diabetes mellitus without complications; Z90.710 Acquired absence of both cervix and uterus; Z90.89 Acquired absence of other organs; Z79.899 Other long term (current) drug therapy; Z79.82 Long term (current) use of aspirin; Z88.5 Allergy status to narcotic agent
CPT/HCPCS: 36415; 71045; 73562; 80053; 81001; 83735; 84484; 85025; 93005; 94640

== ENCOUNTER 2021-06-17 12:56 | Emergency (ER) | payer MEDICARE, MEDICAID ==
[~2021-06-17] VITALS: Ht 160 cm; Wt 95.3 kg
[~2021-06-17 12:56] MED LIST changes: -ASPI-231 PO; +ASPI1TAB20 PO; +DIPH-599 PO; -DIPH25CA46 PO
[2021-06-17 13:59] LABS: Urine Bacteria FEW /hpf (None Seen); Urine Blood Negative /uL (Negative); Urine Hyaline Cast MANY /lpf (0 - 2); Urine Mucus FEW (None Seen); Urine Specific Gravity 1.019 (1.001-1.035); Urine WBC 3 /hpf (0 - 5)
[2021-06-17] MEDS ORDERED: HYDROmorphone HCL 2 MG/ML VL IV ONE (17:30)
[2021-06-17] MEDS ORDERED: ONDANSETRON HCL 4 MG/2 ML VIAL IV ONE (17:30)
[2021-06-17 21:30] LABS: Basophils # (auto) 0.1 10 ^3/uL (0-0.2); Basophils % (auto) 1.3 % (0.0-2.0); Eosinophils # (auto) 0 10 ^3/uL (0-0.8); Eosinophils % (auto) 0.4 % (0.0-7.0); Hematocrit 51.3 % (36.0-46.0); Hemoglobin 17.4 g/dL (12.2-16.2); Lymphocytes # (auto) 1.8 10 ^3/uL (0.4-5.4); Lymphocytes % (auto) 40.5 % (10.0-50.0); Mean Corpuscular Hemoglobin 32.3 pg (28.0-32.0); Mean Corpuscular Hgb Conc. 33.8 g/dL (32.0-36.0); Mean Corpuscular Volume 95.6 fL (80.0-100.0); Monocytes # (auto) 0.5 10 ^3/uL (0-1.3); Monocytes % (auto) 11.4 % (0.0-12.0); Neutrophils # (auto) 2.1 10 ^3/uL (1.6-8.6); Neutrophils % (auto) 46.4 % (37.0-80.0); Nucleated Red Blood Cells % 0.3 %; Red Blood Cells 5.37 10^6/uL (4.0-5.20); Red Cell Distribution Width 13.4 % (11.8-14.3); White Blood Cell 4.4 10^3/uL (4.4-10.8)
[2021-06-17 21:45] LABS: Albumin 3.6 g/dL (3.4-5.0); Calcium 9.2 mg/dL (8.5-10.1)
[2021-06-17 21:48] LABS: BUN/Creatinine Ratio 18.4; Bilirubin, Total 0.4 mg/dL (0.2-1.0); Total Protein 8.4 g/dL (6.4-8.2)
[2021-06-17] MEDS ORDERED: HYDROmorphone HCL 2 MG/ML VL IM ONE (22:45)
[2021-06-18 00:54] VITALS: BP 152/87
== END 2021-06-18 00:56 | disposition home or self-care (01) ==
LOC: ER 12:56
DX: U07.1 COVID-19 (principal); R10.32 Left lower quadrant pain; F17.210 Nicotine dependence, cigarettes, uncomplicated; F12.10 Cannabis abuse, uncomplicated; I11.0 Hypertensive heart disease with heart failure; J44.9 Chronic obstructive pulmonary disease, unspecified; E11.9 Type 2 diabetes mellitus without complications; I10 Essential (primary) hypertension; Z90.710 Acquired absence of both cervix and uterus
CPT/HCPCS: 36415; 74176; 80053; 81001; 83690; 84484; 85025; 87426; 93005; 96372; 99285; J1170

== ENCOUNTER 2021-12-02 11:07 | Inpatient (IN) | payer MEDICARE, MEDICAID ==
[~2021-12-02] VITALS: Ht 160 cm; Wt 94.8 kg
[2021-12-02] MEDS ORDERED: IPRATROPIUM BROM 0.5 MG/2.5ML INH SOL NEB ONE (11:30)
[2021-12-02] MEDS ORDERED: ALBUTEROL SULF 2.5 MG/0.5ML(0.5%) NEB SOLN NEB ONE (11:30)
[2021-12-02] MEDS ORDERED: methylPREDNISolone SOD SUCC 40 MG/ML VL IV ONE (11:30)
[2021-12-02] MEDS ORDERED: MAGNESIUM SULFATE 1GM/100ML 100 ML IV ONE (12:00)
[2021-12-02] MEDS ORDERED: cefTRIAXone 1GM/50ML D5W 50 ML IV ONE (12:00)
[2021-12-02] MEDS ORDERED: AZITHROMYCIN 500MG/ 250ML 250 ML IV ONE (12:00)
[2021-12-02 12:04] LABS: Basophils # (auto) 0 10 ^3/uL (0-0.2); Basophils % (auto) 0.6 % (0.0-2.0); Eosinophils # (auto) 0.2 10 ^3/uL (0-0.8); Eosinophils % (auto) 3.1 % (0.0-7.0); Hematocrit 39.7 % (36.0-46.0); Hemoglobin 13.6 g/dL (12.2-16.2); Lymphocytes # (auto) 2.1 10 ^3/uL (0.4-5.4); Mean Corpuscular Hemoglobin 33.5 pg (28.0-32.0); Mean Corpuscular Hgb Conc. 34.3 g/dL (32.0-36.0); Mean Corpuscular Volume 97.5 fL (80.0-100.0); Monocytes # (auto) 0.6 10 ^3/uL (0-1.3); Monocytes % (auto) 10.7 % (0.0-12.0); Neutrophils # (auto) 2.8 10 ^3/uL (1.6-8.6); Neutrophils % (auto) 48.6 % (37.0-80.0); Nucleated Red Blood Cells % 0.1 %; Red Blood Cells 4.07 10^6/uL (4.0-5.20); Red Cell Distribution Width 13.1 % (11.8-14.3); White Blood Cell 5.7 10^3/uL (4.4-10.8)
[2021-12-02 12:24] LABS: Calcium 8.8 mg/dL (8.5-10.1); Potassium 3.5 mmol/L (3.5-5.1)
[2021-12-02 12:28] LABS: BUN/Creatinine Ratio 14.3; Bilirubin, Total 0.6 mg/dL (0.2-1.0); Total Protein 6.6 g/dL (6.4-8.2)
[2021-12-02 15:22] LABS: Lactic Acid w/Reflex 2.2 mmol/L (0.4-2.0)
[2021-12-02] MEDS ORDERED: LABETALOL HCL 5 MG/ML 4ML SYRINGE IV ONE (15:45)
[2021-12-02] MEDS ORDERED: ONDANSETRON HCL 4 MG/2 ML VIAL IV PRN (16:45)
[2021-12-02] MEDS ORDERED: NITROGLYCERIN 0.4 MG SL TAB SL PRN (16:45)
[2021-12-02] MEDS ORDERED: DOCUSATE CALCIUM 240 MG CAP PO PRN (16:45)
[2021-12-02] MEDS ORDERED: DEXTROSE (50%) 50ML SYRG IV PRN (16:45)
[2021-12-02 17:43] LABS: Urine Bacteria NONE SEEN /hpf (None Seen); Urine Blood Negative /uL (Negative); Urine Specific Gravity 1.013 (1.001-1.035); Urine WBC 1 /hpf (0 - 5)
[2021-12-02] MEDS: ALBUTEROL SULF 2.5 MG/0.5ML(0.5%) NEB SOLN NEB PRN (17:58)
[2021-12-02] MEDS: IPRATROPIUM BROM 0.5 MG/2.5ML INH SOL NEB PRN (17:58)
[2021-12-02] MEDS ORDERED: methylPREDNISolone 4 MG TAB PO SCH (18:00)
[2021-12-02] MEDS: PRAZOSIN HCL 1 MG CAP PO SCH (18:00)
[2021-12-02] MEDS: oxyCODONE HCL 5MG TAB PO PRN ×3 (19:53→22:38)
[2021-12-02] MEDS: InsuLIN REG 1unit/0.01ml Soln (100units/ml) SC SCH (20:00)
[2021-12-02] MEDS: ACCU-CHEK COMFORT CURVE STRIP VI SCH ×2 (20:00→23:59)
[2021-12-02] MEDS ORDERED: methylPREDNISolone SOD SUCC 125 MG/2 ML VL IV SCH (22:00)
[2021-12-02] MEDS: methylPREDNISolone SOD SUCC 40 MG/ML VL IV SCH (22:12)
[2021-12-02] MEDS: QUEtiapine FUMARATE 100 MG TAB PO SCH (22:12)
[2021-12-02] MEDS: hydrALAZINE HCL 20 MG/ML VL IV PRN (22:38)
[2021-12-03] MEDS: InsuLIN REG 1unit/0.01ml Soln (100units/ml) SC SCH ×6 (00:01→20:52)
[2021-12-03] MEDS: ALBUTEROL SULF 2.5 MG/0.5ML(0.5%) NEB SOLN NEB PRN ×2 (02:47→05:34)
[2021-12-03] MEDS: IPRATROPIUM BROM 0.5 MG/2.5ML INH SOL NEB PRN ×2 (02:47→05:34)
[2021-12-03] MEDS: ACCU-CHEK COMFORT CURVE STRIP VI SCH ×6 (03:53→23:30)
[2021-12-03 04:35] LABS: Basophils # (auto) 0 10 ^3/uL (0-0.2); Basophils % (auto) 0.3 % (0.0-2.0); Eosinophils # (auto) 0 10 ^3/uL (0-0.8); Eosinophils % (auto) 0.1 % (0.0-7.0); Hematocrit 37.5 % (36.0-46.0); Hemoglobin 12.7 g/dL (12.2-16.2); Lymphocytes # (auto) 0.6 10 ^3/uL (0.4-5.4); Lymphocytes % (auto) 10.2 % (10.0-50.0); Mean Corpuscular Hgb Conc. 33.9 g/dL (32.0-36.0); Mean Corpuscular Volume 97.4 fL (80.0-100.0); Monocytes # (auto) 0.1 10 ^3/uL (0-1.3); Monocytes % (auto) 2.5 % (0.0-12.0); Neutrophils # (auto) 4.9 10 ^3/uL (1.6-8.6); Neutrophils % (auto) 86.9 % (37.0-80.0); Nucleated Red Blood Cells % 0.1 %; Red Blood Cells 3.85 10^6/uL (4.0-5.20); Red Cell Distribution Width 12.9 % (11.8-14.3); White Blood Cell 5.6 10^3/uL (4.4-10.8)
[2021-12-03 04:46] LABS: INR 1.06 (0.9-1.15)
[2021-12-03 04:50] LABS: Potassium 3.6 mmol/L (3.5-5.1)
[2021-12-03 04:51] LABS: Albumin 2.8 g/dL (3.4-5.0); Calcium 8.4 mg/dL (8.5-10.1); Magnesium 2.1 mg/dL (1.6-2.6)
[2021-12-03 04:53] LABS: BUN/Creatinine Ratio 20.7; Bilirubin, Total 0.3 mg/dL (0.2-1.0); Total Protein 6.6 g/dL (6.4-8.2)
[2021-12-03] MEDS: hydrALAZINE HCL 20 MG/ML VL IV PRN ×2 (06:14→23:01)
[2021-12-03] MEDS: oxyCODONE HCL 5MG TAB PO PRN (06:14)
[2021-12-03] MEDS: cefTRIAXone 1GM/50ML D5W 50 ML IV SCH (09:17)
[2021-12-03] MEDS: methylPREDNISolone SOD SUCC 40 MG/ML VL IV SCH (10:00)
[2021-12-03] MEDS ORDERED: AZITHROMYCIN 500MG/ 250ML 250 ML IV SCH (10:00)
[2021-12-03] MEDS ORDERED: PANTOPRAZOLE 40 MG TAB PO SCH (10:00)
[2021-12-03] MEDS: FUROSEMIDE 40 MG TAB PO SCH (10:04)
[2021-12-03] MEDS: ENOXAPARIN SOD 40 MG/0.4 ML SYRINGE SC SCH (10:05)
[2021-12-03] MEDS: LISINOPRIL 20 MG TAB PO SCH (10:05)
[2021-12-03] MEDS: PRAZOSIN HCL 1 MG CAP PO SCH (18:00)
[2021-12-03 20:00] VITALS: BP 174/81
[2021-12-03 21:30] VITALS: BP 174/81
[2021-12-03] MEDS ORDERED: methylPREDNISolone SOD SUCC 40 MG/ML VL IV ONE (22:30)
[2021-12-03] MEDS: QUEtiapine FUMARATE 100 MG TAB PO SCH (22:38)
[2021-12-04] MEDS: ACCU-CHEK COMFORT CURVE STRIP VI SCH ×6 (03:35→23:55)
[2021-12-04] MEDS: InsuLIN REG 1unit/0.01ml Soln (100units/ml) SC SCH ×7 (03:48→23:59)
[2021-12-04 05:00] VITALS: BP 115/78
[2021-12-04 06:09] LABS: Basophils # (auto) 0 10 ^3/uL (0-0.2); Basophils % (auto) 0.2 % (0.0-2.0); Eosinophils # (auto) 0 10 ^3/uL (0-0.8); Hematocrit 38.8 % (36.0-46.0); Hemoglobin 12.9 g/dL (12.2-16.2); Lymphocytes # (auto) 0.9 10 ^3/uL (0.4-5.4); Lymphocytes % (auto) 14.3 % (10.0-50.0); Mean Corpuscular Hemoglobin 32.8 pg (28.0-32.0); Mean Corpuscular Hgb Conc. 33.1 g/dL (32.0-36.0); Mean Corpuscular Volume 98.9 fL (80.0-100.0); Monocytes # (auto) 0.2 10 ^3/uL (0-1.3); Neutrophils % (auto) 82.5 % (37.0-80.0); Red Blood Cells 3.92 10^6/uL (4.0-5.20); Red Cell Distribution Width 12.9 % (11.8-14.3); White Blood Cell 6.1 10^3/uL (4.4-10.8)
[2021-12-04 06:29] LABS: BUN/Creatinine Ratio 24.8; Calcium 8.7 mg/dL (8.5-10.1); Magnesium 2.1 mg/dL (1.6-2.6)
[2021-12-04 08:00] VITALS: BP_SYST 113; BP_SYST 167; BP_DIAS 41; BP_DIAS 56
[2021-12-04] MEDS: methylPREDNISolone SOD SUCC 40 MG/ML VL IV SCH ×2 (10:30→22:20)
[2021-12-04] MEDS: cefTRIAXone 1GM/50ML D5W 50 ML IV SCH (10:30)
[2021-12-04] MEDS: LISINOPRIL 20 MG TAB PO SCH (10:30)
[2021-12-04] MEDS: ENOXAPARIN SOD 40 MG/0.4 ML SYRINGE SC SCH (10:30)
[2021-12-04] MEDS: FUROSEMIDE 40 MG TAB PO SCH (10:30)
[2021-12-04 11:00] VITALS: BP 125/56
[2021-12-04 13:00] VITALS: BP 156/64
[2021-12-04] MEDS: HYDROcodone-ACET 10/325MG TAB PO PRN (18:00)
[2021-12-04] MEDS: PRAZOSIN HCL 1 MG CAP PO SCH (18:00)
[2021-12-04 22:00] VITALS: BP 119/65
[2021-12-04] MEDS: QUEtiapine FUMARATE 100 MG TAB PO SCH (22:20)
[2021-12-05] MEDS: InsuLIN REG 1unit/0.01ml Soln (100units/ml) SC SCH ×3 (04:00→12:00)
[2021-12-05] MEDS: ACCU-CHEK COMFORT CURVE STRIP VI SCH ×3 (04:17→12:00)
[2021-12-05 05:00] VITALS: BP 134/73
[2021-12-05] MEDS: HYDROcodone-ACET 10/325MG TAB PO PRN (07:53)
[2021-12-05 08:00] VITALS: BP 167/41
[2021-12-05] MEDS: cefTRIAXone 1GM/50ML D5W 50 ML IV SCH (09:14)
[2021-12-05] MEDS: ENOXAPARIN SOD 40 MG/0.4 ML SYRINGE SC SCH (09:15)
[2021-12-05] MEDS: FUROSEMIDE 40 MG TAB PO SCH (09:15)
[2021-12-05] MEDS: LISINOPRIL 20 MG TAB PO SCH (09:15)
[2021-12-05] MEDS: methylPREDNISolone SOD SUCC 40 MG/ML VL IV SCH (09:15)
[2021-12-05 09:20] VITALS: BP 115/69
== END 2021-12-05 12:35 | disposition left against medical advice (07) | DRG 140 ==
LOC: EDBD 11:07 → ER 11:07 → TELE 16:35 → TELE-CENTR 12-03 16:52
PROVIDERS: ADMIT Family Medicine; ATTEND Internal Medicine Geriatric Medicine
DX: J44.1 Chronic obstructive pulmonary disease with (acute) exacerbation (principal); J18.9 Pneumonia, unspecified organism; I11.0 Hypertensive heart disease with heart failure; I50.9 Heart failure, unspecified; C80.1 Malignant (primary) neoplasm, unspecified; J44.0 Chronic obstructive pulmonary disease with (acute) lower respiratory infection; I48.91 Unspecified atrial fibrillation; E11.9 Type 2 diabetes mellitus without complications; F17.210 Nicotine dependence, cigarettes, uncomplicated; F41.9 Anxiety disorder, unspecified; M54.50 Low back pain, unspecified; Z53.29 Procedure and treatment not carried out because of patient's decision for other reasons; R06.03 Acute respiratory distress; M19.90 Unspecified osteoarthritis, unspecified site; Z20.822 Contact with and (suspected) exposure to COVID-19; G89.29 Other chronic pain; Z90.710 Acquired absence of both cervix and uterus; Z28.310 Unvaccinated for COVID-19; Z82.49 Family history of ischemic heart disease and other diseases of the circulatory system; Z83.3 Family history of diabetes mellitus; Z84.1 Family history of disorders of kidney and ureter; Z88.5 Allergy status to narcotic agent
CPT/HCPCS: 36415; 36600; 71045; 80048; 80053; 81001; 82805; 82962; 83036; 83605; 83735; 83880; 84443; 84484; 85025; 85379; 85610; 87040; 93005; 94640; 96365; 96375; 99291; G0378; J0696; J1815; J3490

== ENCOUNTER 2024-07-27 22:16 | Inpatient (IN) | payer OTHER, MEDICAID ==
[~2024-07-27] VITALS: Ht 160 cm; Wt 99.7 kg
[~2024-07-27 22:16] MED LIST changes: -CAR3125T PO; +CARV-214 PO; -DIPH-599 PO; +DIPH-751 PO; -ESCI-34 PO; +ESCI1TAB37 PO; -PRA1C PO; +PRAZ1CAP2 PO
[2024-07-27 22:50] VITALS: PULSE 69; RESP 15; O2SAT 92
--- NOTE | 2024-07-27 23:01 | ED.PDOC ---
Musculoskeletal HPI Comments 68 year old female brought in by EMS presents to the ED with a chief complaint of RT hip pain onset today. Patient states she went to the bathroom, was trying to get back to bed when she felt her RT hip "pop." Patient states she is not able to move RT hip, rates pain 10/10. She had a RT hip replacement about 20 years ago. PMHx asthma, anxiety, CHF, COPD, DM, HTN, Afob, arthritis. Denies fall, injury, chest pain, shortness of breath, dizziness, nausea, vomiting. No other symptoms or modifying factors present at this time. Chief Complaint: Lower Extremity Time Seen by MD: 22:39 Primary Care Provider: ULYSSES Reviewed Notes: Medications, Allergies Allergies: Coded Allergies: Oxycodone (Verified Allergy, Severe, itching, 12/04/21) Morphine (Verified Allergy, Unknown, 09/12/19) Home Meds Active Scripts Ipratropium [place] (Atrovent) 0.03 % Gretel, 0.03 % NEB Q6H PRN for 30 Days Prov:SCOT MCLEOD MD 05/21/15 Reported Medications Aspirin (Aspir-81) 81 Mg Tab, 1 TAB PO DAILY, #30 TAB 5 Refills 09/12/19 Diphenhydramine Hcl (Banophen) 25 Mg Cap, 25 MG PO BID for ALLERGY, CAP 09/12/19 Escitalopram Oxalate (ESCITALOPRAM OXALATE) 20 Mg Tab, 1 TAB PO DAILY for ANXIETY, #30 TAB 5 Refills 09/12/19 Prazosin Hcl (Minipres) 1 Mg Cp, 5 CAP PO QPM for BLOOD PRESSURE, #30 CAP 2 Refills 09/12/19 Oxycodone Hcl (OxyCONTIN ER Tablet) 10 Mg Tb, 1 TAB PO BID for PAIN, #60 TAB 09/12/19 Cholecalciferol (VITAMIN D3) 2,000 Unit Tab, 1 TAB PO DAILY, #30 TAB 5 Refills 02/09/16 Gabapentin (Gabapentin) 600 Mg Tab, 1 TAB PO TID, #90 TAB 3 Refills 02/09/16 Albuterol Sulfate (VENTOLIN MDI) 90 Mcg Ih, 90 MCG IN BID 05/21/15 Quetiapine Fumerate (Seroquel) 200 Mg Tab, 200 MG PO QPM, TAB 05/21/15 Potassium Chloride (KLOR-CON TABLET) 8 Meq Tb, 8 MEQ PO DAILY 05/21/15 Carvedilol (COREG) 3.125 Mg Tab, 1 TAB PO BID, TAB 08/17/13 Albuterol Sulfate (Albuterol Sulfate) 0.083 % Neb, 1 NEB QIDPRN 05/08/12 Furosemide (Lasix) 40 Mg Tab, 1 TAB PO DAILY 01/26/12 Lisinopril (Zestril) 40 Mg Tab, 1 TAB PO BID 01/26/12 Alprazolam (Xanax Xr) 2 Mg Tab, 1 TAB PO TID 01/26/12 Carisoprodol (Soma) 350 Mg Tab, 1 TAB PO TIDP PRN for FOR MUSCLE SPASM 04/23/10 Information Source: Patient, Emergency Med Personnel Mode of Arrival: EMS Location: Right Extremity Location: Hip Timing: Hours Prehospital treatment: None Severity: Moderate Bear Weight: No Pain: Moderate Mechanism: No Trauma Circumstances: Unknown Onset of Symptoms: Spontaneous Symptoms: Pain DVT Risk Factors: CHF History of: Hip Operation Associated signs and symptoms: Hip pain Past Medical History PAST MEDICAL HISTORY: AFIB, Anxiety, Arthritis, Asthma, Cancer, CHF, COPD, DM, HTN, Liver Surgical History: , Hysterectomy, Tonsillectomy Surgical History (Other): RT hip relpacement, bilateral mastectomy [employer] History: No Pertinent [employer] History Family History Family History: Family hx of DM, Family hx of Cancer, Family hx of HTN Social History Smoker: Cigarettes Alcohol: Occasionally Drugs: Marijuana Lives In: Home Constitutional: denies: chills, diaphoresis, fatigue, fever, malaise, sweats, weakness, others EENTM: denies: blurred vision, double vision, ear bleeding, ear discharge, ear drainage, ear pain, ear ringing, eye pain, eye redness, hearing loss, mouth pain, mouth swelling, nasal discharge, nose bleeding, nose congestion, nose pain, photophobia, tearing, throat pain, throat swelling, voice changes, others Respiratory: denies: cough, hemoptysis, orthopnea, SOB at rest, shortness of breath, SOB with excertion, stridor, wheezing, others Cardiovascular: denies: chest pain, dizzy spells, diaphoresis, Dyspnea on exertion, edema, irregular heart beat, left arm pain, lightheadedness, palpitations, PND, syncope, others Gastrointestinal: denies: abdomen distended, abdominal pain, blood streaked bowels, constipated, diarrhea, dysphagia, difficulty swallowing, hematemesis, melena, nausea, poor appetite, poor fluid intake, rectal bleeding, rectal pain, vomiting, others Genitourinary: denies: abnormal vagina bleeding, burning, dyspareunia, dysuria, flank pain, frequency, hematuria, incontinence, pain, , vagina discharge, urgency, others Neurological: denies: dizziness, fainting, headache, left sided numbness, left sided weakness, numbness, paresthesia, pre-existing deficit, right sided numbness, right sided weakness, seizure, speech problems, tingling, tremors, weakness, others Musculoskeletal: reports: others (RT hip pain); denies: back pain, gout, joint pain, joint swelling, muscle pain, muscle stiffness, neck pain Integumetry: denies: bruises, change in color, change in hair/nails, dryness, laceration, lesions, lumps, rash, wounds, others Allergic/Immunocompromised: denies: Difficulty Healing, Frequent Infections, Hives, Itching, others Hematologic/Lymphatic: denies: anemia, blood clots, easy bleeding, easy bruising, swollen glands, others Endocrine: denies: excessive hunger, excessive sweating, excessive thirst, excessive urination, flushing, intolerance to cold, intolerance to heat, unexplained weight gain, unexplained weight loss, others Psychiatric: denies: anxiety, bipolar disorder, depression, hopeless, panic di sorder, schizophrenia, sleepless, suicidal, others All Other Systems: Reviewed and Negative Physical Exam General Appearance: Mild Distress, Obese HEENT: Other (Pupils and face symmetric. Moist mucous membranes.) Neck: Full Range of Motion, Non-Tender, Normal Inspection, Supple Respiratory: Lungs Clear, No Accessory Muscle Use, No Respiratory Distress, Normal Breath Sounds Cardiovascular: No Edema, No JVD, Regular Rate/Rhythm Breast Exam: Deferred Gastrointestinal: Non Tender, Soft Genitalia: Deferred Pelvic: Deferred Rectal: Deferred Extremities: No pedal edema, Tender (Right hip diffuse soft tissue tenderness and limited range of motion due to pain.) Neurologic: Alert (Oriented x4), Normal Affect, Normal Mood, Other (Moves all extremities. No gross focal deficit.) Cerebellar Function: NOT DONE Reflexes: NOT DONE Skin: Dry, Normal Color, Warm Lymphatic: NOT DONE Was a procedure done? Was a procedure done?: Yes Sedation Sedation?: Yes Informed consent obtained: Yes Sedation start time: 01:45 Sedation end time: 02:00 Sedation total time: 15 min Reduction Indication: Dislocation Sedation: Consents obtained, Sedation as ordered, Attempted Reduction Intra-articular anesthetic brendon: No Post-reduction x-ray show: Poor Alignment Informed consent obtained: Yes Risks/benefits/alt described: Yes Differential Diagnosis EXT Differential Diagnosis: Fracture, Sprain, Dislocation, Contusion, Strain, Arthritis, Bursitis X-Ray, Labs, Meds, VS Vital Signs Date Time Temp Pulse Resp B/P (MAP) Pulse Ox O2 Delivery O2 Flow Rate FiO2 07/28/24 04:00 68 07/28/24 04:00 66 12 157/76 (103) 87 07/28/24 03:34 71 13 160/83 07/28/24 02:16 66 13 191/88 07/28/24 02:00 83 16 211/105 (140) 97 07/28/24 01:45 71 23 98 3.0 32 73 17 99 84 100 07/28/24 01:37 70 16 142/73 07/28/24 01:00 71 20 152/83 (106) 97 07/28/24 00:00 71 20 152/83 (106) 97 07/27/24 23:51 66 16 166/76 07/27/24 23:23 66 14 171/78 07/27/24 22:50 69 15 92 Room Air* 0 21 07/27/24 22:50 98.7 69 15 135/69 (91) 92 98.7 07/27/24 22:18 97.9 68 18 166/101 (122) 98 Lab Test 07/27/24 23:00 Range/Units White Blood Count 10.5 4.4-10.8 10^3/uL Red Blood Count 3.93 L 4.0-5.20 10^6/uL Hemoglobin 12.4 12.2-16.2 g/dL Hematocrit 38.2 36.0-46.0 % Mean Corpuscular Volume 97.3 80.0-100.0 fL Mean Corpuscular Hemoglobin 31.6 28.0-32.0 pg Mean Corpuscular Hemoglobin Concent 32.4 32.0-36.0 g/dL Red Cell Distribution Width 13.0 11.8-14.3 % Platelet Count 238 140-450 10^3/uL Mean Platelet Volume 8.3 6.9-10.8 fL Neutrophils (%) (Auto) 48.6 37.0-80.0 % Lymphocytes (%) (Auto) 38.3 10.0-50.0 % Monocytes (%) (Auto) 10.8 0.0-12.0 % Eosinophils (%) (Auto) 1.8 0.0-7.0 % Basophils (%) (Auto) 0.5 0.0-2.0 % Neutrophils # (Auto) 5.1 1.6-8.6 10 ^3/uL Lymphocytes # (Auto) 4.0 0.4-5.4 10 ^3/uL Monocytes # (Auto) 1.1 0-1.3 10 ^3/uL Eosinophils # (Auto) 0.2 0-0.8 10 ^3/uL Basophils # (Auto) 0.1 0-0.2 10 ^3/uL Nucleated Red Blood Cells 0.1 % Sodium Level 137 136-145 mmol/L Potassium Level 3.9 3.5-5.1 mmol/L Chloride Level 105 98-107 mmol/L Carbon Dioxide Level 25 20-31 mmol/L Anion Gap 7 5-15 Blood Urea Nitrogen 26 H 9-23 mg/dL Creatinine 1.03 H 0.550-1.02 mg/dL Glomerular Filtration Rate Calc 59 >90 mL/min BUN/Creatinine Ratio 25.2 H 10.0-20.0 Serum Glucose 220 H 74-106 mg/dL Calcium Level 9.9 8.7-10.4 mg/dL ORDERING PHYSICIAN: ROXANN CONTRERAS MD PROCEDURE(s): LHIP - L HIP COMPLETE XRAY REASON: trauma ORDER NUMBER(s): [id number], ACCESSION NUMBER(s): [id number] CLINICAL INDICATION: trauma TECHNIQUE: XY L HIP COMPLETE XRAY Comparison: None FINDINGS: IMPRESSION: S/p right total hip arthroplasty with dislocation and superolateral migration of the femoral component with respect to the acetabular component. Probable old fracture of right inferior pubic ramus. ATED BY: GÓMEZ WHITMORE MD DICTATED DATE/TIME: 07/27/242331 SIGNED BY: GÓMEZ WHITMORE MD SIGNED DATE/TIME: 07/27/242331 CC: X-Ray, Labs, Meds, VS Comment 68-year-old female with a history of right hip arthroplasty, hypertension, diabetes, dyslipidemia, AFib, COPD/asthma, CHF and liver disease presenting with right hip pain and limited range of motion Vitals remarkable for BP 166/101 Exam remarkable for diffuse right hip soft tissue tenderness and limited range of motion Rhythm strip independently interpreted by me: Sinus rhythm, rate 66, no ectopy. Right hip x-rays IMPRESSION: S/p right total hip arthroplasty with dislocation and superolateral migration of the femoral component with respect to the acetabular component. Probable old fracture of right inferior pubic ramus. CBC unremarkable. Metabolic panel remarkable for BUN 26, creatinine 1.03, glucose 220 Patient treated with the following in the ED: Morphine 4 mg IV, Zofran 4 mg IV, Dilaudid 1 mg IV, ketamine 100 mg IV for conscious sedation Patient was consented for attempted closed reduction of her right hip dislocation under conscious sedation. Risks, benefits and alternatives to treatment were explained to the patient in layman's terms. Patient consented to the procedure. Patient was medicated with ketamine 100 mg IV. Attempted reduction was performed using external rotation, abduction and traction. Unfortunately attempted reduction was not successful. On re-evaluation, patient states pain has improved but is persistent. The right lower extremity is neurovascularly intact. Plan is to admit the patient for orthopedic evaluation and reduction. Time of 1ST Reevaluation: 23:09 Reevaluation 1ST: Unchanged Patient Education/Counseling: Diagnosis, Treatment, Prognosis Family Education/Counseling: No Family Present Additional Information The following tests were ordered, and results were reviewed by me: CBC, BMP, XY Lenora HIP COMPLETE Additional Information was gathered from interviewing the following independent historians: EMS I reviewed and agreed with the following test results read by other providers: LENNY Cooley HIP COMPLETE I discussed treatment and results with medical personnel and: patient Departure 1 Departure Time of Disposition: 02:41 Impression: Primary Impression: Hip dislocation, right Qualified Codes: S73.004A - Unspecified dislocation of right hip, initial encounter Disposition: 09 ADMITTED INPATIENT Admit to: Med Surg Condition: Fair Critical Care Note Critical Care Time?: No Stability Stability form required: No I personally scribed for ROXANN CONTRERAS MD ([email or web address]) on 07/27/24 at 23:01. Electronically submitted by Genesis Mason ([email or web address]). I personally scribed for ROXANN CONTRERAS MD ([email or web address]) on 07/27/24 at 23:04. Electronically submitted by Genesis Mason ([email or web address]). I personally scribed for ROXANN CONTR[facility]AS MD [email or web address] on 07/27/24 at 23:19. Electronically submitted by Genesis Mason ([email or web address]). I personally scribed for ROXANN CONTRERAS MD ([email or web address]) on 07/27/24 at 23:44. Electronically submitted by Genesis Mason ([email or web address]). ROXANN CONTRERAS MD Jul 27, 2024 23:01
[2024-07-27 23:16] LABS: Basophils # (auto) 0.1 10 ^3/uL (0-0.2); Basophils % (auto) 0.5 % (0.0-2.0); Eosinophils # (auto) 0.2 10 ^3/uL (0-0.8); Eosinophils % (auto) 1.8 % (0.0-7.0); Hematocrit 38.2 % (36.0-46.0); Hemoglobin 12.4 g/dL (12.2-16.2); Lymphocytes % (auto) 38.3 % (10.0-50.0); Mean Corpuscular Hemoglobin 31.6 pg (28.0-32.0); Mean Corpuscular Hgb Conc. 32.4 g/dL (32.0-36.0); Mean Corpuscular Volume 97.3 fL (80.0-100.0); Monocytes # (auto) 1.1 10 ^3/uL (0-1.3); Monocytes % (auto) 10.8 % (0.0-12.0); Neutrophils # (auto) 5.1 10 ^3/uL (1.6-8.6); Neutrophils % (auto) 48.6 % (37.0-80.0); Nucleated Red Blood Cells % 0.1 %; Platelet Count (auto) 238 10^3/uL (140-450); Red Blood Cells 3.93 10^6/uL (4.0-5.20); White Blood Cell 10.5 10^3/uL (4.4-10.8)
[2024-07-27] MEDS: MORPHINE SULFATE 4 MG/ML SYR/VIAL IV ONE (23:23)
[2024-07-27] MEDS: ONDANSETRON HCL 4 MG/2 ML VIAL IV ONE (23:24)
[2024-07-27 23:31] LABS: Chloride 105 mmol/L (98-107); Potassium 3.9 mmol/L (3.5-5.1); Sodium 137 mmol/L (136-145)
[2024-07-27 23:32] LABS: Anion Gap 7 (5-15); Calcium 9.9 mg/dL (8.7-10.4); Carbon Dioxide 25 mmol/L (20-31)
--- NOTE | 2024-07-27 23:35 | DVH ---
CLINICAL INDICATION: trauma TECHNIQUE: XY L HIP COMPLETE XRAY Comparison: None FINDINGS: IMPRESSION: S/p right total hip arthroplasty with dislocation and superolateral migration of the femoral componen t with respect to the acetabular component. Probable old fracture of right inferior pubic ramus.
[2024-07-27 23:38] LABS: BUN/Creatinine Ratio 25.2 (10.0-20.0); Blood Urea Nitrogen 26 mg/dL (9-23); Glucose 220 mg/dL (74-106)
[2024-07-28] MEDS: HYDROmorphone HCL 2 MG/ML VL/or syr IV ONE ×2 (01:37→03:34)
[2024-07-28] MEDS: KETAMINE 50mg/ML 10ml Vial (500mg/10ml) IV ONE (01:45)
--- NOTE | 2024-07-28 02:49 | DVH ---
XY R HIP 1V XRAY, right hip INDICATION: port reduction TECHNICAL DATA: Frontal view was obtained of the left hip. COMPARISON: None FINDINGS: The patient is post total hip arthroplasty with upward displacement of the femoral component with res pect to the acetabular component. There is no evidence for acute fracture. Nasal bones are normal min eralization. The left sacroiliac joint appears normal. IMPRESSION: 1. Dislocated right hip arthroplasty.
[2024-07-28] MEDS: HYDROMORPHONE HCL 1 MG/ML INJ IV ONE (03:18)
[2024-07-28] MEDS: ONDANSETRON HCL 4 MG/2 ML VIAL IV ONE (03:34)
[2024-07-28 04:29] VITALS: O2SAT 99
[2024-07-28 04:30] VITALS: BP 157/76; PULSE 66; RESP 12; O2SAT 99
[2024-07-28] MEDS ORDERED: ALBUTEROL SULF 2.5 MG/0.5ML(0.5%) NEB SOLN NEB PRN (04:30)
[2024-07-28] MEDS ORDERED: DEXTROSE (50%) 50ML SYRG IV PRN (04:30)
[2024-07-28] MEDS: SODIUM CHLORIDE 0.9% 1,000 ML IV ONE (04:46)
[2024-07-28 05:06] LABS: INR 1.02 (0.9-1.15); Partial Thromboplastin Time 25.4 SEC (24.5-34.5); Prothrombin Time 10.8 sec (9.3-11.8)
--- NOTE | 2024-07-28 05:08 | DVHHP2 ---
History of Present Illness Reason for Visit: Right hip pain History of Present Illness 67-year-old female presents for evaluation of right hip pain. Patient reports trying to get back to bed from the restroom today when she slipped and twisted her right leg feeling a pop on her hip. Patient is unable to bear weight on her right hip. There was an attempted reduction of the right hip at the emergency department without success. She does have a history of previous right hip replacement. Past Medical History COPD, diabetes mellitus hypertension, gastric, CHF, asthma, AFib Past Surgical History Hysterectomy, tonsillectomy, , right hip replacement, bilateral mastectomy Family History Noncontributory Smoke: No ALCOHOL: none Drugs: None Lives: with Family Review of Systems Review of Systems Review of systems are currently negative otherwise addressed HPI Allergies: Coded Allergies: Oxycodone (Verified Allergy, Severe, itching, 12/04/21) Morphine (Verified Allergy, Unknown, 09/12/19) Medications Current Medications Medications Dose Ordered Sig/Alberto Route Start Time Stop Time Status Last Admin Dose Admin Albuterol 2.5 mg Q6HPRN PRN NEB 07/28/24 04:30 Hydralazine HCl 10 mg Q6HP PRN IV 07/28/24 04:30 Ondansetron HCl 4 mg Q4HP PRN IV 07/28/24 04:30 Diagnostic Test (Pha) 1 strip Q6HR 07/28/24 06:00 Insulin Human Regular Q6HR SC 07/28/24 06:00 Dextrose 50 ml UD PRN IV 07/28/24 04:30 Exam Vital Signs Vital Signs Date Time Temp Pulse Resp B/P (MAP) Pulse Ox O2 Delivery O2 Flow Rate FiO2 07/28/24 04:48 68 11 157/83 07/28/24 04:33 100 07/28/24 04:30 3.0 32 07/28/24 04:29 Nasal Cannula* 07/27/24 22:50 98.7 98.7 Exam Gen: 68-year-old female in mild distress Skin: Warm, dry, normal color and texture, no rash. HEENT: Normocephalic atraumatic, mucous membranes moist and pink. Neck: Cervical and supraclavicular nodes normal without enlargement, trachea is midline, thyroid gland is normal without masses. Pulmonary: Clear to auscultation and percussion bilaterally. Cardiac: Regular rate and rhythm. No murmur Abdomen: Soft, nontender, nondistended, bowel sounds present all 4 quadrants, no guarding, no rigidity, no organomegaly. Extremities: No cyanosis, clubbing, positive right lower extremity shortening, positive distal pulses Neuro: Cranial nerves II through XII grossly intact, normal affect and speech, no focal motor deficits. Labs/Xrays ORDERING PHYSICIAN: ROXANN CONTRERAS MD PROCEDURE(s): RHIP1 - R HIP 1V XRAY REASON: port reduction ORDER NUMBER(s): [id number], ACCESSION NUMBER(s): [id number] XY R HIP 1V XRAY, right hip INDICATION: port reduction TECHNICAL DATA: Frontal view was obtained of the left hip. COMPARISON: None FINDINGS: The patient is post total hip arthroplasty with upward displacement of the femoral component with respect to the acetabular component. There is no evidence for acute fracture. Nasal bones are normal mineralization. The left sacroiliac joint appears normal. IMPRESSION: 1. Dislocated right hip arthroplasty. Labs Test 07/28/24 04:43 07/27/24 23:00 Range/Units White Blood Count 10.5 4.4-10.8 10^3/uL Red Blood Count 3.93 L 4.0-5.20 10^6/uL Hemoglobin 12.4 12.2-16.2 g/dL Hematocrit 38.2 36.0-46.0 % Mean Corpuscular Volume 97.3 80.0-100.0 fL Mean Corpuscular Hemoglobin 31.6 28.0-32.0 pg Mean Corpuscular Hemoglobin Concent 32.4 32.0-36.0 g/dL Red Cell Distribution Width 13.0 11.8-14.3 % Platelet Count 238 140-450 10^3/uL Mean Platelet Volume 8.3 6.9-10.8 fL Neutrophils (%) (Auto) 48.6 37.0-80.0 % Lymphocytes (%) (Auto) 38.3 10.0-50.0 % Monocytes (%) (Auto) 10.8 0.0-12.0 % Eosinophils (%) (Auto) 1.8 0.0-7.0 % Basophils (%) (Auto) 0.5 0.0-2.0 % Neutrophils # (Auto) 5.1 1.6-8.6 10 ^3/uL Lymphocytes # (Auto) 4.0 0.4-5.4 10 ^3/uL Monocytes # (Auto) 1.1 0-1.3 10 ^3/uL Eosinophils # (Auto) 0.2 0-0.8 10 ^3/uL Basophils # (Auto) 0.1 0-0.2 10 ^3/uL Nucleated Red Blood Cells 0.1 % Sodium Level 137 136-145 mmol/L Potassium Level 3.9 3.5-5.1 mmol/L Chloride Level 105 98-107 mmol/L Carbon Dioxide Level 25 20-31 mmol/L Anion Gap 7 5-15 Blood Urea Nitrogen 26 H 9-23 mg/dL Creatinine 1.03 H 0.550-1.02 mg/dL Glomerular Filtration Rate Calc 59 >90 mL/min BUN/Creatinine Ratio 25.2 H 10.0-20.0 Serum Glucose 220 H 74-106 mg/dL Calcium Level 9.9 8.7-10.4 mg/dL Assessment/Plan Assessment/Plan Assessment Right hip dislocation COPD Diabetes mellitus Accelerated hypertension Plan Admit the patient to Med surge to the hospitalist NPO Orthopedic consultation Pain management Continue treatment per orders. Plan discussed with: Patient My Orders Orders - SCOTT CARNES AGACNTomas Procedure Category Date Status Time Albuterol Medneb PHA 07/28/24 In Process (Ventolin Medneb) 04:30 Hydralazine Injection PHA 07/28/24 In Process (Apresoline Inject 04:30 Sodium Chloride 0.9% PHA 07/28/24 In Process 04:30 Basic Metabolic Panel LAB 07/29/24 Verified 04:00 Type And Screen BBK 07/28/24 In Process 04:20 PTPTT LAB 07/28/24 In Process 04:20 Admit ADMIT 07/28/24 Transmitted 04:20 Ondansetron Hcl PHA 07/28/24 In Process (Zofran) 04:30 Npo (Nothing By DIET 07/28/24 Transmitted Mouth) Diet Breakfast Condition: Stable LINA 07/28/24 In Process 04:20 Maintain Bed Rest LINA 07/28/24 In Process 04:20 Sequential LINA 07/28/24 In Process Compression Device Glucose Blood PHA 07/28/24 In Process (Accu-Chek Comfort 06:00 Insulin R (Human) PHA 07/28/24 In Process (Insulin R) 06:00 Dextrose 50% Syringe PHA 07/28/24 In Process 04:30 Date of Service: Jul 28, 2024 Billing Provider: SCOTT CARNES Common Visit Codes: [id number] INP/OBS CARE (HIGH) SCOTT CARNES Jul 28, 2024 05:08
[2024-07-28] MEDS: hydrALAZINE HCL 20 MG/ML VL IV PRN (06:01)
[2024-07-28] MEDS: ACCU-CHEK COMFORT CURVE STRIP VI SCH (06:09)
[2024-07-28] MEDS: InsuLIN REG 1unit/0.01ml Soln (100units/ml) SC SCH (06:15)
[2024-07-28] MEDS: KETOROLAC TROMETH 30 MG/ML 1ML VIAL IV ONE (07:12)
[2024-07-28 07:26] VITALS: O2SAT 100
[2024-07-28] MEDS: HYDROmorphone HCL 2 MG/ML VL/or syr IV PRN (08:20)
[2024-07-28] MEDS: LORazepam 2MG/ML-1ML VIAL IV PRN (12:34)
--- NOTE | 2024-07-28 13:39 | DVHINCON2 ---
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 Patient was seen by emergency room/hospitalist x-ray was completely diagnosed with dislocated non [place] hip, right. 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 Today on my interview patient denies any numbness tingling, no apparent distress during my interview. Denies other joint pain. Patient reports on a scale of 10 her pain is 1 to 2/10. Most of her pain is with movement. Patient reports she is unable to weight bear since last night. Patient reports otherwise she was ambulating with a cane on daily basis. Family History: Cancer G8 FATHER (LUNG) G8 BROTHER G8 SISTER (BREAST) FH: kidney disease G8 MOTHER Family history: Cardiovascular disease G8 MOTHER Family history: Diabetes mellitus G8 MOTHER Family history: Hypertension G8 MOTHER Allergies: Coded Allergies: Oxycodone (Verified Allergy, Severe, itching, 12/04/21) Morphine (Verified Allergy, Unknown, 09/12/19) Home Meds Active Scripts Ipratropium [place] (Atrovent) 0.03 % Gretel, 0.03 % NEB Q6H PRN for 30 Days Prov:SCOT MCLEOD MD 05/21/15 Reported Medications Aspirin (Aspir-81) 81 Mg Tab, 1 TAB PO DAILY, #30 TAB 5 Refills 09/12/19 Diphenhydramine Hcl (Banophen) 25 Mg Cap, 25 MG PO BID for ALLERGY, CAP 09/12/19 Escitalopram Oxalate (ESCITALOPRAM OXALATE) 20 Mg Tab, 1 TAB PO DAILY for ANXIETY, #30 TAB 5 Refills 09/12/19 Prazosin Hcl (Minipres) 1 Mg Cp, 5 CAP PO QPM for BLOOD PRESSURE, #30 CAP 2 Refills 09/12/19 Oxycodone Hcl (OxyCONTIN ER Tablet) 10 Mg Tb, 1 TAB PO BID for PAIN, #60 TAB 09/12/19 Cholecalciferol (VITAMIN D3) 2,000 Unit Tab, 1 TAB PO DAILY, #30 TAB 5 Refills 02/09/16 Gabapentin (Gabapentin) 600 Mg Tab, 1 TAB PO TID, #90 TAB 3 Refills 02/09/16 Albuterol Sulfate (VENTOLIN MDI) 90 Mcg Ih, 90 MCG IN BID 05/21/15 Quetiapine Fumerate (Seroquel) 200 Mg Tab, 200 MG PO QPM, TAB 05/21/15 Potassium Chloride (KLOR-CON TABLET) 8 Meq Tb, 8 MEQ PO DAILY 05/21/15 Carvedilol (COREG) 3.125 Mg Tab, 1 TAB PO BID, TAB 08/17/13 Albuterol Sulfate (Albuterol Sulfate) 0.083 % Neb, 1 NEB QIDPRN 05/08/12 Furosemide (Lasix) 40 Mg Tab, 1 TAB PO DAILY 01/26/12 Lisinopril (Zestril) 40 Mg Tab, 1 TAB PO BID 01/26/12 Alprazolam (Xanax Xr) 2 Mg Tab, 1 TAB PO TID 01/26/12 Carisoprodol (Soma) 350 Mg Tab, 1 TAB PO TIDP PRN for FOR MUSCLE SPASM 04/23/10 Current Medications Current Medications Medications (Trade) Dose Ordered Sig/Alberto Route PRN Reason Start Time Stop Time Status Last Admin Albuterol (Ventolin Medneb) 2.5 mg Q6HPRN PRN NEB SHORTNESS OF BREATH 07/28/24 04:30 Hydralazine HCl (Apresoline Injection) 10 mg Q6HP PRN IV SBP>150 07/28/24 04:30 07/28/24 06:01 Ondansetron HCl (Zofran) 4 mg Q4HP PRN IV NAUSEA / VOMITING 07/28/24 04:30 Diagnostic Test (Pha) (Accu-Chek Comfort Curve T) 1 strip Q6HR 07/28/24 06:00 07/28/24 11:58 Insulin Human Regular (InsuLIN R) Q6HR SC 07/28/24 06:00 07/28/24 06:15 Dextrose 50 ml UD PRN IV Blood Sugar LESS THAN 60 07/28/24 04:30 Hydromorphone HCl (Dilaudid Injection) 0.5 mg Q3HPRN PRN IV PAIN SCALE 7 THRU 10 07/28/24 07:15 07/28/24 12:34 Lorazepam (Ativan Inj) 1 mg Q8HP PRN IV ANXIETY 07/28/24 11:15 07/28/24 12:34 Vital Signs Vital Signs Date Time Temp Pulse Resp B/P (MAP) Pulse Ox O2 Delivery O2 Flow Rate FiO2 07/28/24 12:34 73 14 171/75 07/28/24 09:00 99 07/28/24 08:00 97.9 97.9 07/28/24 08:00 Nasal Cannula* 2 28 Physical Exam Right hip Exam Right leg in a slight internal rotation with shortening unable to perform right hip range of motion secondary to worsening of pain Otherwise grossly neurovascularly intact no other joint pain noted X-ray right hip reviewed Noted right total hip replacement with dislocation and loosening of femoral stem, no fractures were noted. Labs/Diagnostic Data Labs Test 07/28/24 06:08 07/28/24 04:43 07/27/24 23:00 Range/Units POC Glucose 177 H 70-106 mg/dl Prothrombin Time 10.8 9.3-11.8 sec Prothrombin Time INR 1.02 0.9-1.15 Activated Partial Thromboplast Time 25.4 24.5-34.5 SEC White Blood Count 10.5 4.4-10.8 10^3/uL Red Blood Count 3.93 L 4.0-5.20 10^6/uL Hemoglobin 12.4 12.2-16.2 g/dL Hematocrit 38.2 36.0-46.0 % Mean Corpuscular Volume 97.3 80.0-100.0 fL Mean Corpuscular Hemoglobin 31.6 28.0-32.0 pg Mean Corpuscular Hemoglobin Concent 32.4 32.0-36.0 g/dL Red Cell Distribution Width 13.0 11.8-14.3 % Platelet Count 238 140-450 10^3/uL Mean Platelet Volume 8.3 6.9-10.8 fL Neutrophils (%) (Auto) 48.6 37.0-80.0 % Lymphocytes (%) (Auto) 38.3 10.0-50.0 % Monocytes (%) (Auto) 10.8 0.0-12.0 % Eosinophils (%) (Auto) 1.8 0.0-7.0 % Basophils (%) (Auto) 0.5 0.0-2.0 % Neutrophils # (Auto) 5.1 1.6-8.6 10 ^3/uL Lymphocytes # (Auto) 4.0 0.4-5.4 10 ^3/uL Monocytes # (Auto) 1.1 0-1.3 10 ^3/uL Eosinophils # (Auto) 0.2 0-0.8 10 ^3/uL Basophils # (Auto) 0.1 0-0.2 10 ^3/uL Nucleated Red Blood Cells 0.1 % Sodium Level 137 136-145 mmol/L Potassium Level 3.9 3.5-5.1 mmol/L Chloride Level 105 98-107 mmol/L Carbon Dioxide Level 25 20-31 mmol/L Anion Gap 7 5-15 Blood Urea Nitrogen 26 H 9-23 mg/dL Creatinine 1.03 H 0.550-1.02 mg/dL Glomerular Filtration Rate Calc 59 >90 mL/min BUN/Creatinine Ratio 25.2 H 10.0-20.0 Serum Glucose 220 H 74-106 mg/dL Calcium Level 9.9 8.7-10.4 mg/dL Assessment Right IRMA with dislocation, acute Plan/Recommendation Case was discussed with on-call provider Dr. Lo. I reviewed with him the emergency room has already tried to reduce the hip but were unable to reduce it since patient has had 1 attempt in reduction we will not do another attempting reduction as after review of x-ray noted loose femoral stem. At this time with patient's history and current finding of dislocation with loose stem patient will need right total hip revision. After further discussion on-call surgeon recommended as follow: Patient to be transferred to the hospital where patient received right total hip. Per patient she received her right hip replacement and follow-up care at [facility]. I discussed with patients admitting hospitalist on-call surgeons recommendation and advice on transferring this patient to [facility] for further evaluation and possible revision of right hip. Plan discussed with: Patient, Other (Assessment and plan was discussed with Dr. Jurado the admitting hospitalist who agree with my above plan.) ROMMEL ERICKSON [facility] Jul 28, 2024 13:39
--- NOTE | 2024-07-28 14:52 | DVHPN2 ---
Reviewed: Care Plan, H&P, Labs, Medications, Previous Orders, Radiology Changes from previous H/P or p: No Changes Objective Vitals Vital Signs Date Time Temp Pulse Resp B/P (MAP) Pulse Ox O2 Delivery O2 Flow Rate FiO2 07/28/24 13:04 77 16 172/73 07/28/24 13:00 100 07/28/24 08:00 97.9 97.9 07/28/24 08:00 Nasal Cannula* 2 28 Intake/Output Intake and Output 07/28/24 07:00 Intake Total 160 ml Balance 160 ml Intake IV Total 160 ml Medications Current Medications Medications Dose Ordered Sig/Alberto Route Start Time Stop Time Status Last Admin Dose Admin Albuterol 2.5 mg Q6HPRN PRN NEB 07/28/24 04:30 Hydralazine HCl 10 mg Q6HP PRN IV 07/28/24 04:30 07/28/24 06:01 10 MG Ondansetron HCl 4 mg Q4HP PRN IV 07/28/24 04:30 Diagnostic Test (Pha) 1 strip Q6HR 07/28/24 06:00 07/28/24 11:58 1 STRIP Insulin Human Regular Q6HR SC 07/28/24 06:00 07/28/24 06:15 3 UNITS Dextrose 50 ml UD PRN IV 07/28/24 04:30 Hydromorphone HCl 0.5 mg Q3HPRN PRN IV 07/28/24 07:15 07/28/24 12:34 0.5 MG Lorazepam 1 mg Q8HP PRN IV 07/28/24 11:15 07/28/24 12:34 1 MG Laboratory Results Laboratory Tests 07/27/24 23:00 Chemistry Test 07/27/24 23:00 Calcium Level 9.9 mg/dL (8.7-10.4) Coagulation Test 07/28/24 04:43 Prothrombin Time 10.8 sec (9.3-11.8) Prothrombin Time INR 1.02 (0.9-1.15) Activated Partial Thromboplast Time 25.4 SEC (24.5-34.5) Labs and/or images reviewed: Labs reviewed by me, Image(s) reviewed by me Assessment/Plan Assessment/Plan Dislocation of right total hip arthroplasty: Consult by Dr. Lo appreciated advised to transfer to [facility] where he had original procedure done Diabetes Hypertension COPD Plan discussed with: Patient My Orders Orders - SENG LAUREN MD Procedure Category Date Status Time Lorazepam 2mg/Ml Inj PHA 07/28/24 In Process (Ativan Inj) 11:15 Date of Service: Jul 28, 2024 Billing Provider: SENG LAUREN MD Common Visit Codes: [id number] INP/OBS CARE(HIGH) SENG LAUREN MD Jul 28, 2024 14:52
--- NOTE | 2024-07-28 14:55 | DVHTS ---
Transfer Summary Transfer Summary Date of Admission Jul 28, 2024 at 04:20 Date of Transfer: Jul 28, 2024 Transfer Diagnosis Dislocation of right hip hip arthroplasty Brief Hx & Hospital Course: Patient came in complaining of right hip pain after mechanical fall . had dislocation of the right hip total hip arthroplasty attempt by ER physician were unsuccessful for relocating the hip. Seen by orthopedics advised transferred to [facility] where he had the rt hip replacement about 10 years ago Transfer to: [facility] Date of Service: Jul 28, 2024 Billing Provider: SENG LAUREN MD Common Visit Codes: [id number] DISCH DAY >30min SENG LAUREN MD Jul 28, 2024 14:54
[2024-07-28] MEDS: ONDANSETRON HCL 4 MG/2 ML VIAL IV PRN (17:52)
[2024-07-28 19:35] VITALS: O2SAT 99
[2024-07-28 22:45] VITALS: BP 140/61; PULSE 76; RESP 18; TEMP 98; O2SAT 91
[2024-07-29] VITALS (11 sets, daily range): BP systolic 123–178; BP diastolic 70–96; PULSE 78–99; RESP 16–19; TEMP 98.3–99; O2SAT 92–96
[2024-07-29 06:38] LABS: Chloride 106 mmol/L (98-107); Potassium 4.1 mmol/L (3.5-5.1); Sodium 138 mmol/L (136-145)
[2024-07-29 06:39] LABS: Anion Gap 8 (5-15); Calcium 9.4 mg/dL (8.7-10.4); Carbon Dioxide 24 mmol/L (20-31)
[2024-07-29 06:44] LABS: BUN/Creatinine Ratio 20.8 (10.0-20.0); Blood Urea Nitrogen 20 mg/dL (9-23); Glucose 134 mg/dL (74-106)
[2024-07-29] MEDS ORDERED: ONDANSETRON HCL 4 MG/2 ML VIAL IV PRN (08:30)
--- NOTE | 2024-07-29 08:31 | DVHPN2 ---
Reviewed: Care Plan, H&P, Labs, Medications, Previous Orders, Radiology Changes from previous H/P or p: No Changes Objective Vitals Vital Signs Date Time Temp Pulse Resp B/P (MAP) Pulse Ox O2 Delivery O2 Flow Rate FiO2 07/29/24 05:51 92 Room Air 07/29/24 05:51 0 21 07/29/24 05:00 98.7 92 17 150/81 (104) 98.7 Intake/Output Intake and Output 07/29/24 07:00 Intake Total 800 ml Output Total 2050 ml Balance -1250 ml Intake Oral 0 ml IV Total 800 ml Output Urine Total 2050 ml Medications Current Medications Medications Dose Ordered Sig/Alberto Route Start Time Stop Time Status Last Admin Dose Admin Albuterol 2.5 mg Q6HPRN PRN NEB 07/28/24 04:30 Hydralazine HCl 10 mg Q6HP PRN IV 07/28/24 04:30 07/28/24 06:01 10 MG Ondansetron HCl 4 mg Q4HP PRN IV 07/28/24 04:30 07/28/24 17:52 4 MG Diagnostic Test (Pha) 1 strip Q6HR 07/28/24 06:00 07/29/24 05:35 1 STRIP Insulin Human Regular Q6HR SC 07/28/24 06:00 07/28/24 06:15 3 UNITS Dextrose 50 ml UD PRN IV 07/28/24 04:30 Hydromorphone HCl 0.5 mg Q3HPRN PRN IV 07/28/24 07:15 07/28/24 22:58 0.5 MG Lorazepam 1 mg Q8HP PRN IV 07/28/24 11:15 07/28/24 12:34 1 MG Laboratory Results Laboratory Tests 07/27/24 23:00 07/29/24 05:31 Chemistry Test 07/29/24 05:31 Calcium Level 9.4 mg/dL (8.7-10.4) Labs and/or images reviewed: Labs reviewed by me, Image(s) reviewed by me Assessment/Plan Assessment/Plan Dislocation of right total hip arthroplasty: Consult by Dr. Lo appreciated advised to transfer to [facility] where he had original procedure done, Dilaudid for pain Zofran for nausea Diabetes Hypertension COPD Patient awaiting transfer to [facility] Plan discussed with: Patient My Orders Orders - LAUREN,SENG M MD Procedure Category Date Status Time Lorazepam 2mg/Ml Inj PHA 07/28/24 In Process (Ativan Inj) 11:15 Discharge DISCHARGE 07/28/24 Transmitted 14:52 * Seal Skinner CONS 07/28/24 Transmitted Consult Date of Service: Jul 29, 2024 Billing Provider: SENG LAUREN MD Common Visit Codes: [id number] INP/OBS CARE(HIGH) SENG LAUREN MD Jul 29, 2024 08:31
[2024-07-29] MEDS: HYDROmorphone HCL 2 MG/ML VL/or syr IV PRN (13:17)
[2024-07-30] VITALS (9 sets, daily range): BP systolic 129–169; BP diastolic 64–96; PULSE 65–99; RESP 16–20; TEMP 97.8–99.2; O2SAT 91–98
--- NOTE | 2024-07-30 09:23 | DVHPN2 ---
Reviewed: Care Plan, H&P, Labs, Medications, Previous Orders, Radiology Changes from previous H/P or p: No Changes Objective Vitals Vital Signs Date Time Temp Pulse Resp B/P (MAP) Pulse Ox O2 Delivery O2 Flow Rate FiO2 07/30/24 09:04 98.2 92 16 154/64 (94) 96 98.2 07/30/24 07:59 Room Air* 0 21 Intake/Output Intake and Output 07/30/24 07:00 Intake Total 0 ml Output Total 800 ml Balance -800 ml Intake Oral 0 ml Output Urine Total 800 ml Medications Current Medications Medications Dose Ordered Sig/Alberto Route Start Time Stop Time Status Last Admin Dose Admin Albuterol 2.5 mg Q6HPRN PRN NEB 07/28/24 04:30 Cancel Hydralazine HCl 10 mg Q6HP PRN IV 07/28/24 04:30 07/30/24 03:05 10 MG Ondansetron HCl 4 mg Q4HP PRN IV 07/28/24 04:30 07/29/24 08:33 4 MG Diagnostic Test (Pha) 1 strip Q6HR 07/28/24 06:00 07/30/24 06:04 1 STRIP Insulin Human Regular Q6HR SC 07/28/24 06:00 07/30/24 06:03 2 UNITS Dextrose 50 ml UD PRN IV 07/28/24 04:30 Lorazepam 1 mg Q8HP PRN IV 07/28/24 11:15 07/29/24 20:22 1 MG Hydromorphone HCl 1 mg Q3HPRN PRN IV 07/29/24 08:30 07/30/24 03:42 1 MG Ondansetron HCl 4 mg Q4HPRN PRN IV 07/29/24 08:30 Laboratory Results Laboratory Tests 07/27/24 23:00 07/29/24 05:31 Labs and/or images reviewed: Labs reviewed by me, Image(s) reviewed by me Assessment/Plan Assessment/Plan Dislocation of right total hip arthroplasty: Consult by Dr. Teresita davison advised to transfer to [facility] where he had original procedure done, Dilaudid for pain Zofran for nausea Diabetes Hypertension COPD Patient awaiting transfer to [facility] Spoke to Casi, coordinator transfer center [facility] [phone], she is going to inform the orthopedic Dr to call me directly Plan discussed with: Patient, Other (RN) Date of Service: Jul 30, 2024 Billing Provider: SENG LAUREN MD Common Visit Codes: [id number] INP/OBS CARE(HIGH) SENG LAUREN MD Jul 30, 2024 09:23
[2024-07-30] MEDS: diphenhdrAMINE HCL 50 MG/1 ML VL IV ONE (12:04)
--- NOTE | 2024-07-30 14:22 | DVH ---
CHEST RADIOGRAPH Indication: Pain Technique: Single frontal view of the chest was obtained COMPARISON: CHEST XRAY 1 VIEW on DOS: 12/02/21, CXR1 on DOS: 12/02/21, CHEST XRAY 1 VIEW on DOS: , CHEST XRAY 1 VIEW on DOS: 06/15/20, CHEST XRAY 1 VIEW on DOS: 09/13/19 FINDINGS: Lines and Tubes: None Lungs: Clear Pleura: No effusion. No pneumothorax. Cardiomediastinal contours: Unremarkable Bones: Unremarkable IMPRESSION: No acute disease.
--- NOTE | 2024-07-30 15:31 | DVHSR ---
APPROVED REPORT EXAM: Two-dimensional and M-mode echocardiogram with Doppler and color Doppler. Blood Pressure: 151/72 mmHg INDICATION Pre-Op RISK FACTORS Height: 63, Weight: 212 DIMENSIONS LVDd4.2 (3.8-5.7cm)LA (2D)4.3 (1.9-4.0cm)Aortic Root3.1 (2.0-3.7cm) LVDs2.8 (2.5-4.0cm)LA (MM) (1.9-4.0cm)Aortic Cusp Exc1.9 (1.5-2.0cm) EF (%) 62.0 (55-70%)Rt. Atrium3.6 (1.9-4.0cm)Asc. Aorta cm IVSd1.7 (0.7-1.1cm)RV (D) (1.8-2.4cm) PWd1.2 (0.7-1.1cm) Mitral Valve MitralMitral Stenosis E wave0.69m/sMV Mean GR.mmHg A wave0.87m/sMV Peak GR.66mmHg E/A ratio0.82D MVAcm2 DECEL [id number] 1/2 Timems Aortic Valve Aortic ValveAortic Stenosis V11.38m/Aleksandra Mean GR.6mmHg V21.60m/Aleksandra Peak GR.10mmHg LVOT Diameter2.0 (1.8-2.4cm)Doppler AVA2.71cm2 Pulmonic Valve V21.09m/s Tricuspid Valve TR Velocity2.61m/s [id number] Conclusion lvef 65% by visual estimate moderate LVH normal RV function, RV moderately enlarged left atrium enlarged no severe valve abnormalities noted
--- NOTE | 2024-07-30 16:34 | DVHINCON2 ---
DENTON STARK [facility] 07/30/24 1634: Date Seen: Jul 30, 2024 Referring Physician MD Yonas Reason for Consultation Cardiac risk stratification History of Present Illness This is a 68-year-old female patient who presents to the emergency room with chief complaint of right hip pain. The patient reports that she was getting into bed when suddenly she felt as though her right hip "popped". She came to the emergency room for further evaluation. Imaging revealed "status post right total hip arthroplasty with dislocation and superolateral migration of the femoral component". A reduction was attempted in the emergency room without success. The patient is now requiring surgical intervention. Cardiology has been consulted for cardiac risk stratification. Initial twelve lead electrocardiogram done at bedside at time of assessment reveals sinus tachycardia with incomplete right bundle branch block and left anterior fascicular block. Significant past medical history includes congestive heart failure, hypertension, dyslipidemia, COPD, type 2 diabetes mellitus, bilateral breast cancer status post chemo and bilateral mastectomy, and obesity. It was noted that the patient was also previously on hospice. When the patient was asked why she was on hospice, her only response was "I was really sick". I did ask the patient about any poor prognosis or end of life prognosis, and she denies. She states that she revoked her hospice approximately four months ago when she began to feel better. Past Medical History Past medical history reviewed. No other significant than mentioned above. Past Surgical History Hysterectomy Right hip replacement times 20 years ago Left breast mastectomy in 1987 Right breast mastectomy in 1989 Family History: Cancer G8 FATHER (LUNG) G8 BROTHER G8 SISTER (BREAST) FH: kidney disease G8 MOTHER Family history: Cardiovascular disease G8 MOTHER Family history: Diabetes mellitus G8 MOTHER Family history: Hypertension G8 MOTHER Family History Family history reviewed. Social History Denies the use of tobacco, alcohol or illicit drugs. Allergies: Coded Allergies: Oxycodone (Verified Allergy, Severe, itching, 12/04/21) Morphine (Verified Allergy, Unknown, 09/12/19) Home Meds Active Scripts Ipratropium [place]udd[place] (Atrovent) 0.03 % Gretel, 0.03 % NEB Q6H PRN for 30 Days Prov:SCOT MCLEOD MD 05/21/15 Reported Medications Aspirin (Aspir-81) 81 Mg Tab, 1 TAB PO DAILY, #30 TAB 5 Refills 09/12/19 Diphenhydramine Hcl (Banophen) 25 Mg Cap, 25 MG PO BID for ALLERGY, CAP 09/12/19 Escitalopram Oxalate (ESCITALOPRAM OXALATE) 20 Mg Tab, 1 TAB PO DAILY for ANXIETY, #30 TAB 5 Refills 09/12/19 Prazosin Hcl (Minipres) 1 Mg Cp, 5 CAP PO QPM for BLOOD PRESSURE, #30 CAP 2 Refills 09/12/19 Oxycodone Hcl (OxyCONTIN ER Tablet) 10 Mg Tb, 1 TAB PO BID for PAIN, #60 TAB 09/12/19 Cholecalciferol (VITAMIN D3) 2,000 Unit Tab, 1 TAB PO DAILY, #30 TAB 5 Refills 02/09/16 Gabapentin (Gabapentin) 600 Mg Tab, 1 TAB PO TID, #90 TAB 3 Refills 02/09/16 Albuterol Sulfate (VENTOLIN MDI) 90 Mcg Ih, 90 MCG IN BID 05/21/15 Quetiapine Fumerate (Seroquel) 200 Mg Tab, 200 MG PO QPM, TAB 05/21/15 Potassium Chloride (KLOR-CON TABLET) 8 Meq Tb, 8 MEQ PO DAILY 05/21/15 Carvedilol (COREG) 3.125 Mg Tab, 1 TAB PO BID, TAB 08/17/13 Albuterol Sulfate (Albuterol Sulfate) 0.083 % Neb, 1 NEB QIDPRN 05/08/12 Furosemide (Lasix) 40 Mg Tab, 1 TAB PO DAILY 01/26/12 Lisinopril (Zestril) 40 Mg Tab, 1 TAB PO BID 01/26/12 Alprazolam (Xanax Xr) 2 Mg Tab, 1 TAB PO TID 01/26/12 Carisoprodol (Soma) 350 Mg Tab, 1 TAB PO TIDP PRN for FOR MUSCLE SPASM 04/23/10 Home Meds Home medications reviewed. Review of Systems Constitutional: No symptom reported Ears, Nose, & Throat: No symptom reported Eyes: No symptom reported Neurological: No symptoms reported Pulmonary/Respiratory: No symptoms reported Cardiovascular: No symptom reported Gastrointestinal: No symptom reported Genitourinary: No symptom reported Musculoskeletal: Right hip pain Skin: No symptom reported Psychiatric: No symptom reported Endocrine: No symptom reported Hematologic/Lymphatic: No symptom reported Vital Signs Vital Signs Date Time Temp Pulse Resp B/P (MAP) Pulse Ox O2 Delivery O2 Flow Rate FiO2 07/30/24 13:16 98.4 99 18 129/83 (98) 95 98.4 07/30/24 10:00 Room Air 0.0 07/30/24 10:00 21 Physical Exam General Appearance: Cooperative. Well-developed. Well-nourished. No acute distress. Pulmonary/Respiratory: Clear, bilateral breaths sounds. Cardiovascular/Chest: Regular rate and rhythm. Peripheral Pulses: 2+ Radial (R). 2+ Radial (L). 2+ Pedal (R). 2+ Pedal (L) Abdominal Exam: Normal bowel sounds. Ankle Exam: Negative ankle edema Lower extremities: Negative lower extremity edema Neuro/Mental Status: A/OX4, coherent. Thoughts/Psych: Normal thought pattern. Appropriate mood and affect. Good judgment and insight. Appearance: No acute distress. Skin Exam: Normal inspection. Normal color. Warm and dry. Labs/Diagnostic Data Labs Test 07/30/24 12:29 07/29/24 05:31 07/28/24 04:43 07/27/24 23:00 Range/Units POC Glucose 144 H 70-106 mg/dl Sodium Level 138 136-145 mmol/L Potassium Level 4.1 3.5-5.1 mmol/L Chloride Level 106 98-107 mmol/L Carbon Dioxide Level 24 20-31 mmol/L Anion Gap 8 5-15 Blood Urea Nitrogen 20 9-23 mg/dL Creatinine 0.96 0.550-1.02 mg/dL Glomerular Filtration Rate Calc 64 >90 mL/min BUN/Creatinine Ratio 20.8 H 10.0-20.0 Serum Glucose 134 H 74-106 mg/dL Calcium Level 9.4 8.7-10.4 mg/dL Prothrombin Time 10.8 9.3-11.8 sec Prothrombin Time INR 1.02 0.9-1.15 Activated Partial Thromboplast Time 25.4 24.5-34.5 SEC White Blood Count 10.5 4.4-10.8 10^3/uL Red Blood Count 3.93 L 4.0-5.20 10^6/uL Hemoglobin 12.4 12.2-16.2 g/dL Hematocrit 38.2 36.0-46.0 % Mean Corpuscular Volume 97.3 80.0-100.0 fL Mean Corpuscular Hemoglobin 31.6 28.0-32.0 pg Mean Corpuscular Hemoglobin Concent 32.4 32.0-36.0 g/dL Red Cell Distribution Width 13.0 11.8-14.3 % Platelet Count 238 140-450 10^3/uL Mean Platelet Volume 8.3 6.9-10.8 fL Neutrophils (%) (Auto) 48.6 37.0-80.0 % Lymphocytes (%) (Auto) 38.3 10.0-50.0 % Monocytes (%) (Auto) 10.8 0.0-12.0 % Eosinophils (%) (Auto) 1.8 0.0-7.0 % Basophils (%) (Auto) 0.5 0.0-2.0 % Neutrophils # (Auto) 5.1 1.6-8.6 10 ^3/uL Lymphocytes # (Auto) 4.0 0.4-5.4 10 ^3/uL Monocytes # (Auto) 1.1 0-1.3 10 ^3/uL Eosinophils # (Auto) 0.2 0-0.8 10 ^3/uL Basophils # (Auto) 0.1 0-0.2 10 ^3/uL Nucleated Red Blood Cells 0.1 % Assessment Preprocedural cardiovascular examination Chronic HFpEF, NYHA class II Hypertension Dyslipidemia COPD Type 2 diabetes mellitus Bilateral breast cancer status post bilateral mastectomy Obesity Plan/Recommendation We will continue with the following plan/recommendations (): Transthoracic echocardiogram reveals EF 65%. Revised cardiac risk index (Micah criteria): 1 point (6.0% risk of major cardiac event). Chest x-ray shows no acute disease. The patient does have an underlying history of congestive heart failure, but is euvolemic at time of assessment. Prior to admission, the patient reports a fair functional capacity. Per Cardiology standpoint, the patient is at a acceptable risk for moderate risk surgery. There is no additional cardiac workup indicated prior to surgery. Thank you for allowing us to care for this patient. Please call with any questions or concerns. Critical care time spent: 44 minutes This medical document was created using an electronic medical record system with voice recognition software and computerized dictation system. Although this document has been carefully reviewed, there might still be some phonetic and typographical errors. Occasional wrong-word or ``sound-alike substitutions may have occurred due to the inherent limitations of voice recognition software. These areas are purely typographical due to imperfections of the software programs and do not reflect any compromise in the patient's medical care. Please read the chart carefully and recognize, using context, where these substitutions have occurred. Plan discussed with: Patient NYHA Physical activity limitations: Class2(Slight)fatigue,sob (palpitatns, angina w activityv) Date of Service: Jul 30, 2024 Billing Provider: DENTON STARK Cardiology Common Codes: [id number] INP/OBS CARE (High) Cardiology Consultation Codes: [id number] CONSULT <45MIN FABY LLAMAS MD 07/30/24 1708: Family History: Cancer G8 FATHER (LUNG) G8 BROTHER G8 SISTER (BREAST) FH: kidney disease G8 MOTHER Family history: Cardiovascular disease G8 MOTHER Family history: Diabetes mellitus G8 MOTHER Family history: Hypertension G8 MOTHER Allergies: Coded Allergies: Oxycodone (Verified Allergy, Severe, itching, 12/04/21) Morphine (Verified Allergy, Unknown, 09/12/19) Home Meds Active Scripts Ipratropium [place]udd[place] (Atrovent) 0.03 % Gretel, 0.03 % NEB Q6H PRN for 30 Days Prov:SCOT MCLEOD MD 05/21/15 Reported Medications Aspirin (Aspir-81) 81 Mg Tab, 1 TAB PO DAILY, #30 TAB 5 Refills 09/12/19 Diphenhydramine Hcl (Banophen) 25 Mg Cap, 25 MG PO BID for ALLERGY, CAP 09/12/19 Escitalopram Oxalate (ESCITALOPRAM OXALATE) 20 Mg Tab, 1 TAB PO DAILY for ANXIETY, #30 TAB 5 Refills 09/12/19 Prazosin Hcl (Minipres) 1 Mg Cp, 5 CAP PO QPM for BLOOD PRESSURE, #30 CAP 2 Refills 09/12/19 Oxycodone Hcl (OxyCONTIN ER Tablet) 10 Mg Tb, 1 TAB PO BID for PAIN, #60 TAB 09/12/19 Cholecalciferol (VITAMIN D3) 2,000 Unit Tab, 1 TAB PO DAILY, #30 TAB 5 Refills 02/09/16 Gabapentin (Gabapentin) 600 Mg Tab, 1 TAB PO TID, #90 TAB 3 Refills 02/09/16 Albuterol Sulfate (VENTOLIN MDI) 90 Mcg Ih, 90 MCG IN BID 05/21/15 Quetiapine Fumerate (Seroquel) 200 Mg Tab, 200 MG PO QPM, TAB 05/21/15 Potassium Chloride (KLOR-CON TABLET) 8 Meq Tb, 8 MEQ PO DAILY 05/21/15 Carvedilol (COREG) 3.125 Mg Tab, 1 TAB PO BID, TAB 08/17/13 Albuterol Sulfate (Albuterol Sulfate) 0.083 % Neb, 1 NEB QIDPRN 05/08/12 Furosemide (Lasix) 40 Mg Tab, 1 TAB PO DAILY 01/26/12 Lisinopril (Zestril) 40 Mg Tab, 1 TAB PO BID 01/26/12 Alprazolam (Xanax Xr) 2 Mg Tab, 1 TAB PO TID 01/26/12 Carisoprodol (Soma) 350 Mg Tab, 1 TAB PO TIDP PRN for FOR MUSCLE SPASM 04/23/10 Plan/Recommendation per RAILROAD SURVEYOR , pt going [place] [facility], please call for ?S agree with RAILROAD SURVEYOR plan formulated together DENTON STARK Jul 30, 2024 16:34 FABY LLAMAS MD Jul 30, 2024 17:08
[2024-07-31] VITALS (8 sets, daily range): BP systolic 128–161; BP diastolic 43–100; PULSE 47–91; RESP 16–18; TEMP 97.6–98.3; O2SAT 95–99
[2024-07-31] MEDS ORDERED: OXYCODONE W/ ACETAMINOPHEN 5/325MG TABLET PO PRN (09:00)
[2024-07-31] MEDS ORDERED: diphenhdrAMINE HCL 25 MG CAP PO PRN (09:00)
[2024-07-31] MEDS: OXYCODONE W/ ACETAMINOPHEN 5/325MG TABLET PO ONE (09:00)
--- NOTE | 2024-07-31 09:14 | DVHPN2 ---
Reviewed: Care Plan, H&P, Labs, Medications, Previous Orders, Radiology Changes from previous H/P or p: No Changes Objective Vitals Vital Signs Date Time Temp Pulse Resp B/P (MAP) Pulse Ox O2 Delivery O2 Flow Rate FiO2 07/31/24 08:39 161/95 07/31/24 07:46 98.2 85 16 97 98.2 07/30/24 20:00 Room Air* 0 21 Intake/Output Intake and Output 07/31/24 07:00 Intake Total 420 ml Output Total 1050 ml Balance -630 ml Intake Oral 420 ml Output Urine Total 1050 ml Medications Current Medications Medications Dose Ordered Sig/Alberto Route Start Time Stop Time Status Last Admin Dose Admin Albuterol 2.5 mg Q6HPRN PRN NEB 07/28/24 04:30 Cancel Hydralazine HCl 10 mg Q6HP PRN IV 07/28/24 04:30 07/31/24 08:39 10 MG Diagnostic Test (Pha) 1 strip Q6HR 07/28/24 06:00 07/31/24 05:32 1 STRIP Insulin Human Regular Q6HR SC 07/28/24 06:00 07/31/24 05:30 2 UNITS Dextrose 50 ml UD PRN IV 07/28/24 04:30 Lorazepam 1 mg Q8HP PRN IV 07/28/24 11:15 07/30/24 22:36 1 MG Ondansetron HCl 4 mg Q4HPRN PRN IV 07/29/24 08:30 Oxycodone/ Acetaminophen 1 tab Q4HP PRN PO 07/31/24 09:00 Diphenhydramine HCl 25 mg Q6HP PRN PO 07/31/24 09:00 Laboratory Results Laboratory Tests 07/27/24 23:00 07/29/24 05:31 Labs and/or images reviewed: Labs reviewed by me, Image(s) reviewed by me Assessment/Plan Assessment/Plan Dislocation of right total hip arthroplasty: Consult by Dr. Lo appreciated advised to transfer to [facility] where he had original procedure done, Dilaudid for pain Zofran for nausea Diabetes Hypertension COPD Patient awaiting transfer to [facility] Plan discussed with: Patient My Orders Orders - SENG LAUREN MD Procedure Category Date Status Time * Freelance Translator CONS 07/30/24 Transmitted Consult Consistent DIET 07/30/24 Transmitted Carb(Ccho)Diabetes Breakfast * Freelance Translator CONS 07/30/24 Transmitted Consult Oxycodone W/ Acet PHA 07/31/24 In Process 5/325mg Tab (Percocet 09:00 Diphenhdramine PHA 07/31/24 In Process Capsule (Benadryl 09:00 Acetaminophen/Codeine PHA 07/31/24 Verified Tablet (Tylenol W/ 09:15 Date of Service: Jul 31, 2024 Billing Provider: SENG LAUREN MD Common Visit Codes: [id number] INP/OBS CARE(HIGH) SENG LAUREN MD Jul 31, 2024 09:14
[2024-07-31] MEDS: ACETAMINOPHEN/CODEINE#3 (300/30mg) TAB PO PRN (10:21)
--- NOTE | 2024-07-31 11:06 | ECG ---
[facility] Test Date: 2024-07-30 Test Time: 15:05:35 Pat Name: ANGELES CARRANZA Department: Respiratoy Room: 0216 A Gender: F Golf Tournament Consultant: SARI FREGOSO LVN : 1955 Requested By: DENTON STARK Order Number: [id number] Reading MD: Catarino Geronimo Measurements Intervals [place] Rate: 100 P: 101 AR: 154 QRS: -41 QRSD: 128 T: 93 QT: 354 QTc: 457 Interpretive Statements Sinus tachycardia IVCD, consider atypical RBBB Nonspecific T abnormalities, lateral leads Electronically Signed On 08-02-2024 8:14:52 PST by Catarino Geronimo Please click the below link to view image of tracing.
[2024-08-01] VITALS (11 sets, daily range): BP systolic 111–151; BP diastolic 65–83; PULSE 69–91; RESP 16–19; TEMP 97.2–98.2; O2SAT 93–100
[2024-08-01] MEDS ORDERED: TRANEXAMIC ACID 20 ML ONE (07:23)
[2024-08-01] MEDS ORDERED: BUPIVACAINE 0.25% INJ 50ML VIAL ONE (07:24)
[2024-08-01] MEDS ORDERED: MORPHINE SULF PF 5 MG/10 ML VIAL ONE (07:25)
[2024-08-01] MEDS ORDERED: VANCOMYCIN HCL 1000 MG VL ONE (07:33)
[2024-08-01] MEDS ORDERED: KETOROLAC TROMETH 30 MG/ML 1ML VIAL ONE (07:37)
[2024-08-01] MEDS ORDERED: MEPERIDINE HCL (25 MG/ML) 1ML VIAL ONE (08:21)
[2024-08-01] MEDS ORDERED: fentaNYL CITRATE 100 MCG/2 ML VL ONE (08:21)
[2024-08-01] MEDS ORDERED: DexAMETHasone SOD PHOS 10MG/1ML VIAL INJ ONE (08:22)
[2024-08-01] MEDS ORDERED: MIDAZOLAM HCL 2MG/2ML 2ml VIAL (1mg/ml) ONE ×2 (08:22→08:52)
[2024-08-01] MEDS ORDERED: PROPOFOL 10 MG/ML 20 ML IV ONE (08:24)
[2024-08-01] MEDS ORDERED: TETRACAINE 1% INJ 2 ML VIAL IJ ONE (08:41)
[2024-08-01] MEDS ORDERED: KETAMINE 50mg/ML 1ml syringe ONE (08:47)
[2024-08-01] MEDS: ceFAZolin 1GM/50ML 100 ML IV ONE (08:49)
--- NOTE | 2024-08-01 09:44 | DVHPN2 ---
Reviewed: Care Plan, H&P, Labs, Medications, Previous Orders, Radiology Changes from previous H/P or p: No Changes Objective Vitals Vital Signs Date Time Temp Pulse Resp B/P (MAP) Pulse Ox O2 Delivery O2 Flow Rate FiO2 08/01/24 09:00 98.2 86 18 111/74 (86) 94 98.2 07/31/24 20:00 Room Air* 0 21 Intake/Output Intake and Output 08/01/24 07:00 Intake Total 1000 ml Output Total 850 ml Balance 150 ml Intake Oral 1000 ml Output Urine Total 850 ml Medications Current Medications Medications Dose Ordered Sig/Alberto Route Start Time Stop Time Status Last Admin Dose Admin Albuterol 2.5 mg Q6HPRN PRN NEB 07/28/24 04:30 Cancel Hydralazine HCl 10 mg Q6HP PRN IV 07/28/24 04:30 07/31/24 08:39 10 MG Diagnostic Test (Pha) 1 strip Q6HR 07/28/24 06:00 08/01/24 05:59 1 STRIP Insulin Human Regular Q6HR SC 07/28/24 06:00 08/01/24 05:59 2 UNITS Dextrose 50 ml UD PRN IV 07/28/24 04:30 Lorazepam 1 mg Q8HP PRN IV 07/28/24 11:15 07/31/24 22:04 1 MG Ondansetron HCl 4 mg Q4HPRN PRN IV 07/29/24 08:30 Diphenhydramine HCl 25 mg Q6HP PRN PO 07/31/24 09:00 Acetaminophen/ Codeine Phosphate 1 tab Q4HP PRN PO 07/31/24 09:15 08/01/24 04:54 1 TAB Laboratory Results Laboratory Tests 07/27/24 23:00 07/29/24 05:31 Labs and/or images reviewed: Labs reviewed by me, Image(s) reviewed by me Assessment/Plan Assessment/Plan Dislocation of right total hip arthroplasty: Consult by Dr. Lo appreciated advised to transfer to [facility] where he had original procedure done, Dilaudid for pain Zofran for nausea Diabetes Hypertension COPD Patient getting surgery by our ortho today Plan discussed with: Patient My Orders Orders - SENG LAUREN MD Procedure Category Date Status Time Consistent DIET 07/31/24 Transmitted Carb(Ccho)Diabetes Dinner Electrocardigram EKG 08/01/24 Logged 07:19 Electrocardigram EKG 08/01/24 Logged 07:19 Date of Service: Aug 01, 2024 Billing Provider: SENG LAUREN MD Common Visit Codes: [id number] INP/OBS CARE(HIGH) SENG LAUREN MD Aug 01, 2024 09:44
[2024-08-01] MEDS ORDERED: PHENYLEPHRINE HCL 10 MG/ML VL ONE (10:26)
[2024-08-01] MEDS: ceFAZolin 1GM/50ML 50 ML IV SCH (11:00)
[2024-08-01] MEDS ORDERED: NITROGLYCERIN 0.4 MG SL TAB SL PRN (11:00)
--- NOTE | 2024-08-01 11:20 | DVHOP2 ---
Operative Report - 2 Report Details Date: 08/01/24 Preop Diagnosis: Complex, right periprosthetic dislocation. Right Greater Trochanter osteolysis/ Fracture Postop Diagnosis: Same Surgeon: Swapna Narayan MD Anesthesiologist: Yonas Anesthesia: Mac, Regional Implant: Biomet [place] constrained. cobalt head Consent: The patient was informed of the risks and benefits of the procedure. These include but are not limited to complications of anesthesia, postoperative infection, incomplete relief of symptoms, recurrence of symptoms, damage to blood vessels, nerves and tendons, deep venous thrombosis, pulmonary embolism and possible need for repeat surgery in the future. Estimated Blood Loss: 300 Findings: Near complete resorption of greater trochanter. large anterior void. osseointegrated implants with instability requiring constrained liner. large, invaginated healed prior scar Name of Procedure Performed Revision Right Total Hip, Revision of Scar of 30cm Procedure Details Procedure Details: The patient was placed in the lateral decubitus position following the administration of spinal anesthesia. The right hip was prepped and draped in the usual sterile fashion. An anterolateral approach was utilized to access the hip joint. Care was taken to revise the existing 30 cm scar to minimize additional scarring and provide optimal access. The incision was made along the old scar line and extended proximally and dissection was carefully carried down through the subcutaneous tissue to expose the hip joint. The tensor fascia mikaela was incised, and the anterior portion of the gluteus medius was devoid and scared. we utilized this gap for access to the joint. Upon reaching the hip joint, the dislocated femoral head was identified and carefully removed. The femoral component, despite having a bare lateral shoulder was well integrated into the calcar and distally. The remnant of the greater trochanter was fractured and mostly scar. The acetabular component was inspected and found to be stable, although there was significant osteolytic damage surrounding it. The decision was made to proceed with a head and liner exchange, utilizing a constrained acetabular liner to address the instability. The existing polyethylene liner was removed, and the acetabular cavity was thoroughly debrided of osteolytic tissue. Special attention was given to removing all debris and ensuring a clean environment for the new liner. A [place] constrained liner was then introduced and securely positioned within the acetabular shell. The femoral head was exchanged for a compatible component that matched the new liner and restored the desired biomechanics. After ensuring proper alignment and stability, the hip was reduced, and stability was tested through a full range of motion. Satisfactory stability was achieved with the new constrained liner, which was confirmed by the absence of impingement or undue stress during testing. The wound was irrigated with copious amounts of saline to remove any potential contaminants, and meticulous hemostasis was achieved. We approximated the remnant of the gluteus medius and vastus. The fascia was closed with interrupted sutures, followed by closure of the subcutaneous tissue and skin with layered sutures to promote optimal healing of the revised scar. [place] and #2 nylon retention sutures were applied to the skin as needed. Negative pressure dressing was placed Specimen: Cultures and pathology x 3 Condition Fair Disposition Assessment and Plan ASSESSMENT AND PLAN Assessment and Plan At this point she may return to med surgery with IM. She may weight bear as tolerated, work with PT/OT with anterior hip precautions. She should have mechanical and chemical DVT prophylaxis. Weight loss will be very important in mainlining these implants and preventing further hardware complications. My orders: Orders - SWAPNA NARAYAN DO Obtain Consent For: (07/30/24 11:46) Plan discussed with: Other SWAPNA NARAYAN DO Aug 01, 2024 11:20
[2024-08-01] MEDS ORDERED: fentaNYL CITRATE 100 MCG/2 ML VL IV PRN (11:30)
[2024-08-01] MEDS ORDERED: HYDROmorphone HCL 2 MG/ML VL/or syr IV PRN (11:30)
[2024-08-01] MEDS ORDERED: MIDAZOLAM HCL 2MG/2ML 2ml VIAL (1mg/ml) IV PRN (11:30)
[2024-08-01] MEDS ORDERED: ePHEDrine SULFATE 50 MG/ML AMP IV PRN (11:30)
[2024-08-01] MEDS ORDERED: ONDANSETRON HCL 4 MG/2 ML VIAL IV ONE (11:30)
[2024-08-01] MEDS ORDERED: hydrALAZINE HCL 20 MG/ML VL IV PRN (11:30)
--- NOTE | 2024-08-01 12:06 | DVH ---
CLINICAL INDICATION: post-op TECHNIQUE: 2 XY PELVIS AP Comparison: None FINDINGS/IMPRESSION: : There is no evidence of acute fracture or dislocation. Expected findings post right hip arthroplasty.
--- NOTE | 2024-08-01 13:55 | ECG ---
[facility] Test Date: 2024-08-01 Test Time: 08:13:47 Pat Name: ANGELES CARRANZA Department: Respiratoy Room: 0216 A Gender: F Tick Sewer: : 1955 Requested By: SENG LAUREN Order Number: [id number] Reading MD: Catarino Geronimo Measurements Intervals [place] Rate: 80 P: 39 AR: 157 QRS: -22 QRSD: 118 T: -28 QT: 421 QTc: 486 Interpretive Statements Sinus rhythm Incomplete right bundle branch block Left ventricular hypertrophy Inferior infarct, age indeterminate Lateral leads are also involved Baseline wander in lead(s) III Electronically Signed On 08-02-2024 8:18:03 PST by Catarino Geronimo Please click the below link to view image of tracing.
--- NOTE | 2024-08-01 15:49 | ECG ---
[facility] Test Date: 2024-07-30 Test Time: 15:08:10 Pat Name: ANGELES CARRANZA Department: Respiratoy Room: 0216 A Gender: F Lead Janitor: SARI FREGOSO LVN : 1955 Requested By: SENG LAUREN Order Number: [id number] Reading MD: Catarino Geronimo Measurements Intervals [place] Rate: 102 P: 105 MT: 169 QRS: -42 QRSD: 117 T: 102 QT: 355 QTc: 463 Interpretive Statements Sinus tachycardia Incomplete RBBB and LAFB Electronically Signed On 08-02-2024 8:15:20 PST by Catarino Geronimo Please click the below link to view image of tracing.
[2024-08-01] MEDS: LACTATED RINGER'S 1,000 ML IV SCH (17:45)
[2024-08-01] MEDS: ENOXAPARIN SOD 30 MG/0.3 ML SYRINGE SC SCH (22:27)
[2024-08-02] VITALS (9 sets, daily range): BP systolic 129–153; BP diastolic 76–95; PULSE 64–92; RESP 18; TEMP 97.8–98.7; O2SAT 93–98
[2024-08-02] MEDS: ceFAZolin 1GM/50ML 50 ML IV SCH (05:02)
[2024-08-02] MEDS: KETOROLAC TROMETH 30 MG/ML 1ML VIAL IV ONE (05:16)
[2024-08-02 05:39] LABS: Basophils # (auto) 0 10 ^3/uL (0-0.2); Basophils % (auto) 0.4 % (0.0-2.0); Eosinophils # (auto) 0 10 ^3/uL (0-0.8); Hematocrit 36.6 % (36.0-46.0); Hemoglobin 12.1 g/dL (12.2-16.2); Lymphocytes # (auto) 1.1 10 ^3/uL (0.4-5.4); Lymphocytes % (auto) 9.1 % (10.0-50.0); Mean Corpuscular Hemoglobin 31.9 pg (28.0-32.0); Mean Corpuscular Volume 96.6 fL (80.0-100.0); Monocytes # (auto) 1.2 10 ^3/uL (0-1.3); Monocytes % (auto) 9.6 % (0.0-12.0); Neutrophils # (auto) 9.9 10 ^3/uL (1.6-8.6); Neutrophils % (auto) 80.9 % (37.0-80.0); Nucleated Red Blood Cells % 0.2 %; Platelet Count (auto) 249 10^3/uL (140-450); Red Blood Cells 3.79 10^6/uL (4.0-5.20); Red Cell Distribution Width 12.4 % (11.8-14.3); White Blood Cell 12.3 10^3/uL (4.4-10.8)
[2024-08-02 05:41] LABS: Potassium 4.3 mmol/L (3.5-5.1); Sodium 139 mmol/L (136-145)
[2024-08-02 05:42] LABS: Anion Gap 8 (5-15); Calcium 9.4 mg/dL (8.7-10.4); Carbon Dioxide 21 mmol/L (20-31)
[2024-08-02 05:47] LABS: BUN/Creatinine Ratio 25.3 (10.0-20.0); Blood Urea Nitrogen 21 mg/dL (9-23)
[2024-08-02 06:26] LABS: Chloride 110 mmol/L (98-107); Glucose 139 mg/dL (74-106)
--- NOTE | 2024-08-02 07:54 | DVHPN2 ---
Progress Note - Dictate Date Seen: Aug 02, 2024 Medical Necessity Reason Pt with a Central, PICC or Fol: No Subjective 68 Yo female with hx of R hip revision. On my interview pt is not in any distress. Pt was laying in bed, She reports her pain is at worse 7-8/10. She deneis any bleeding from incision site, No numbeness, tingling, SOB, Chest pain reported. vital signs Vital Sign Date Time Temp Pulse Resp B/P (MAP) Pulse Ox O2 Delivery O2 Flow Rate FiO2 08/02/24 05:00 97.9 79 18 153/95 (114) 98 97.9 08/01/24 20:20 Room Air* 0 21 Total Intake and Output 08/01/24 08/01/24 08/02/24 15:00 23:00 07:00 Intake Total 560 ml 650 ml 800 ml Output Total 250 ml 650 ml Balance 560 ml 400 ml 150 ml medications Current Medications Medications Dose Ordered Sig/Alberto Route Start Time Stop Time Status Last Admin Dose Admin Albuterol 2.5 mg Q6HPRN PRN NEB 07/28/24 04:30 Cancel Hydralazine HCl 10 mg Q6HP PRN IV 07/28/24 04:30 07/31/24 08:39 10 MG Diagnostic Test (Pha) 1 strip Q6HR 07/28/24 06:00 08/02/24 05:05 1 STRIP Insulin Human Regular Q6HR SC 07/28/24 06:00 08/02/24 05:25 2 UNITS Dextrose 50 ml UD PRN IV 07/28/24 04:30 Lorazepam 1 mg Q8HP PRN IV 07/28/24 11:15 08/01/24 22:43 1 MG Ondansetron HCl 4 mg Q4HPRN PRN IV 07/29/24 08:30 Diphenhydramine HCl 25 mg Q6HP PRN PO 07/31/24 09:00 Acetaminophen/ Codeine Phosphate 1 tab Q4HP PRN PO 07/31/24 09:15 08/02/24 01:39 1 TAB Lactated Ringer's 1,000 ml @ 100 mls/hr Q10H IV 08/01/24 11:00 08/01/24 17:45 100 MLS/HR Enoxaparin Sodium 30 mg Q12HR SC 08/01/24 22:00 08/01/24 22:27 30 MG Nitroglycerin 0.4 mg Q5MINP PRN SL 08/01/24 11:00 objective PE: No respiratory distress, AO x 3 RIGHT HIP Surgical Site: Dressing is clean and dry, intact, no s/s of infection N/V INTACT DISTAL PULASES, Cap refill less than 2 sec, Sensation and Motor function intact on operative extremity No calf tenderness or swelling noted. laboratory and microbiology Laboratory Tests 08/02/24 05:10 Test 08/02/24 05:10 Range/Units Serum Glucose 139 H 74-106 mg/dL Assessment/Plan Right IRMA with dislocation, Revision POD #1 Post operative pain managment: Pt is allergic to Opiod derivative( itching, denies any hx of anaphylaxis or Angieedema with it).Hopitalist did manage her pain with Toradol and previously Dilaudid.If needed Pt can be treated with IV Tylenol for pain and/or Adjunct of Gabapentin. DVT Prophylaxis : Managed with Enoxaparin daily, SCD PT today ABX: Treated with Kelfex , added Cefepime today per Dr. Mandujano Encouraged on Oral intake Continue Close monitoring, reasses after PT Plan to discharge based on Pain control and Functional Status. Dietary Evaluation Review Comments: 1) Add cardiac restriction to 45g CCHO diet order 2) Refer to outpatient RD/CDCES for weight management upon d/c 3) F/u with physical therapy after surgery 4) Conntinue to monitor labs and PO intake Expected Outcomes/Goals: 1) appetite and labs to improve 2) f/u in 3-5 days Plan discussed with: Patient, Other (Nurse taking care of patient) ROMMEL ERICKSON PAC Aug 02, 2024 07:54
--- NOTE | 2024-08-02 09:50 | DVHPN2 ---
Reviewed: Care Plan, H&P, Labs, Medications, Previous Orders, Radiology Changes from previous H/P or p: No Changes Objective Vitals Vital Signs Date Time Temp Pulse Resp B/P (MAP) Pulse Ox O2 Delivery O2 Flow Rate FiO2 08/02/24 09:00 97.9 64 18 142/86 (104) 93 97.9 08/02/24 08:00 Room Air* 0 21 Intake/Output Intake and Output 08/02/24 07:00 Intake Total 2010 ml Output Total 900 ml Balance 1110 ml Intake Oral 1760 ml IV Total 250 ml Output Urine Total 900 ml Medications Current Medications Medications Dose Ordered Sig/Alberto Route Start Time Stop Time Status Last Admin Dose Admin Albuterol 2.5 mg Q6HPRN PRN NEB 07/28/24 04:30 Cancel Hydralazine HCl 10 mg Q6HP PRN IV 07/28/24 04:30 07/31/24 08:39 10 MG Diagnostic Test (Pha) 1 strip Q6HR 07/28/24 06:00 08/02/24 05:05 1 STRIP Insulin Human Regular Q6HR SC 07/28/24 06:00 08/02/24 05:25 2 UNITS Dextrose 50 ml UD PRN IV 07/28/24 04:30 Lorazepam 1 mg Q8HP PRN IV 07/28/24 11:15 08/01/24 22:43 1 MG Ondansetron HCl 4 mg Q4HPRN PRN IV 07/29/24 08:30 Diphenhydramine HCl 25 mg Q6HP PRN PO 07/31/24 09:00 Acetaminophen/ Codeine Phosphate 1 tab Q4HP PRN PO 07/31/24 09:15 08/02/24 01:39 1 TAB Lactated Ringer's 1,000 ml @ 100 mls/hr Q10H IV 08/01/24 11:00 08/01/24 17:45 100 MLS/HR Enoxaparin Sodium 30 mg Q12HR SC 08/01/24 22:00 08/01/24 22:27 30 MG Nitroglycerin 0.4 mg Q5MINP PRN SL 08/01/24 11:00 Laboratory Results Laboratory Tests 08/02/24 05:10 Chemistry Test 08/02/24 05:10 Calcium Level 9.4 mg/dL (8.7-10.4) Microbiology Microbiology Date/Time Source Procedure Growth Status 08/01/24 10:00 Hip Right Gram Stain Pending Resulted 08/01/24 10:00 Hip Right Anaerobic Culture - Preliminary Resulted 08/01/24 10:00 Hip Right Aerobic Culture Pending Resulted Labs and/or images reviewed: Labs reviewed by me, Image(s) reviewed by me Assessment/Plan Assessment/Plan Dislocation of right total hip arthroplasty: Status post Revision Right Total Hip, Revision of Scar of 30cm by Dr. Narayan on 08-01-24 Diabetes Hypertension COPD DVT prophylaxis Lovenox Physical therapy ordered Plan discussed with: Patient Date of Service: Aug 02, 2024 Billing Provider: SENG LAUREN MD Common Visit Codes: [id number] INP/OBS CARE(HIGH) SENG LAUREN MD Aug 02, 2024 09:50
[2024-08-02] MEDS: KETOROLAC TROMETH 30 MG/ML 1ML VIAL IV SCH (12:25)
[2024-08-02] MEDS: GABAPENTIN 100 MG CAP PO SCH (20:53)
[2024-08-03] VITALS (7 sets, daily range): BP systolic 158–194; BP diastolic 10–89; PULSE 71–79; RESP 17–20; TEMP 97.6–98.3; O2SAT 94–98
[2024-08-03 07:37] LABS: Hematocrit 35.4 % (36.0-46.0); Hemoglobin 11.5 g/dL (12.2-16.2)
[2024-08-03] MEDS ORDERED: CEPH500C PO (08:28)
[2024-08-03] MEDS ORDERED: RIVA10TA PO (08:28)
[2024-08-03] MEDS ORDERED: ACE3T PO (08:28)
[2024-08-03] MEDS: LACTULOSE 20Gm/30ML SOLN PO ONE (08:30)
--- NOTE | 2024-08-03 08:37 | DVHDS2 ---
Discharge Summary Date of Admission Jul 28, 2024 at 04:20 Date of Discharge: Jul 28, 2024 Admitting Diagnosis Dislocated right hip Wounds: Revision total hip arthroplasty right hip Labs/Diagnostic Data: Laboratory Results Test 08/03/24 06:50 08/03/24 06:25 08/02/24 05:10 07/28/24 04:43 Hemoglobin 11.5 g/dL (12.2-16.2) Hematocrit 35.4 % (36.0-46.0) POC Glucose 101 mg/dl (70-106) White Blood Count 12.3 10^3/uL (4.4-10.8) Red Blood Count 3.79 10^6/uL (4.0-5.20) Mean Corpuscular Volume 96.6 fL (80.0-100.0) Mean Corpuscular Hemoglobin 31.9 pg (28.0-32.0) Mean Corpuscular Hemoglobin Concent 33.0 g/dL (32.0-36.0) Red Cell Distribution Width 12.4 % (11.8-14.3) Platelet Count 249 10^3/uL (140-450) Mean Platelet Volume 8.1 fL (6.9-10.8) Neutrophils (%) (Auto) 80.9 % (37.0-80.0) Lymphocytes (%) (Auto) 9.1 % (10.0-50.0) Monocytes (%) (Auto) 9.6 % (0.0-12.0) Eosinophils (%) (Auto) 0.0 % (0.0-7.0) Basophils (%) (Auto) 0.4 % (0.0-2.0) Neutrophils # (Auto) 9.9 10 ^3/uL (1.6-8.6) Lymphocytes # (Auto) 1.1 10 ^3/uL (0.4-5.4) Monocytes # (Auto) 1.2 10 ^3/uL (0-1.3) Eosinophils # (Auto) 0 10 ^3/uL (0-0.8) Basophils # (Auto) 0 10 ^3/uL (0-0.2) Nucleated Red Blood Cells 0.2 % Sodium Level 139 mmol/L (136-145) Potassium Level 4.3 mmol/L (3.5-5.1) Chloride Level 110 mmol/L (98-107) Carbon Dioxide Level 21 mmol/L (20-31) Anion Gap 8 (5-15) Blood Urea Nitrogen 21 mg/dL (9-23) Creatinine 0.83 mg/dL (0.550-1.02) Glomerular Filtration Rate Calc 76 mL/min (>90) BUN/Creatinine Ratio 25.3 (10.0-20.0) Serum Glucose 139 mg/dL (74-106) Calcium Level 9.4 mg/dL (8.7-10.4) Prothrombin Time 10.8 sec (9.3-11.8) Prothrombin Time INR 1.02 (0.9-1.15) Activated Partial Thromboplast Time 25.4 SEC (24.5-34.5) Other Laboratory Tests 08/03/24 06:50 08/02/24 05:10 Brief Hx & Hospital Course: 68-year-old female with a history of previous right hip arthroplasty had dislocated and came to the ER and admitted. Patient had dislocation of the right hip arthroplasty. Patient had original surgery done in [facility] about 10 years ago. Orders placed to transfer the patient to [facility] per orthopedic advised. [facility] refused to take the patient and patient finally underwent revision of right total hip arthroplasty by orthopedic Dr. Chan in [facility]. Patient received physical therapy and pain management able to bear partial weight on the right hip being discharged home on [place] Xarelto and Keflex. she will follow up with Dr Chan in two weeks. Home health arranged for physical therapy Consults/Reason for consult Orthopedic Operations or Procedures Revision total hip arthroplasty right hip Condition at Discharge: Fair Final Diagnosis/Problems List Dislocation of right total hip arthroplasty: Status post Revision Right Total Hip, Revision of Scar of 30cm by Dr. Narayan on 08-01-24 Diabetes Hypertension COPD Discharge Disposition: Home with Health Services Discharge Instruct/Medications Diet: Cardiac 2g Na,low cholest Activity: Light activity Activity comment: Limited weight-bearing right lower extremity Follow Up/Referral: Follow up with the primary Dr in one week Follow up with the orthopedic Dr. Chan in two weeks Medications: Xarelto [place] Keflex Transmitted to pharmacy 36 (Time taken for discharge summary 36 minutes) Discharge Statement: "Patient was advised to return to the ER or call 911 if any headaches, dizziness, shortness of breath, chest pain, abdominal pain, bleeding, fevers, or worsening of medical condition. Patient was counseled about treatment plan, medications, possible side effects, patientverbalized understanding. All questions were answered to the best of my ability. This discharge took greater then 30 minutes in planning, reviewing documentation, counseling the patient, and discussing with other team members." ASSESSMENT ASSESSMENT Hospital Course Improved Assessment Dislocation of right total hip arthroplasty: Status post Revision Right Total Hip, Revision of Scar of 30cm by Dr. Narayan on 08-01-24 Diabetes Hypertension COPD Date of Service: Aug 03, 2024 Billing Provider: SENG LAUREN MD Common Visit Codes: [id number] DISCH DAY >30min SENG LAUREN MD Aug 03, 2024 08:37
[2024-08-03] MEDS: CEFEPIME 1GM/ 50ML 50 ML IV SCH (09:35)
== END 2024-08-03 15:58 | disposition home health service (06) | DRG 481 ==
LOC: EDBD 22:16 → ER 22:16 → OVERFLOW 07-28 04:20 → CENTRAL 07-28 22:30
PROVIDERS: ADMIT Family Medicine; ATTEND Family Medicine
PROC: 0SW909Z Revision of Liner in Right Hip Joint, Open Approach (ICD-10-PCS; principal; 2024-08-01 08:49)
DX: T84.020A Dislocation of internal right hip prosthesis, initial encounter (principal); I50.32 Chronic diastolic (congestive) heart failure; J44.9 Chronic obstructive pulmonary disease, unspecified; E78.5 Hyperlipidemia, unspecified; Y79.2 Prosthetic and other implants, materials and accessory orthopedic devices associated with adverse incidents; E66.9 Obesity, unspecified; F17.210 Nicotine dependence, cigarettes, uncomplicated; I11.0 Hypertensive heart disease with heart failure; R00.0 Tachycardia, unspecified; J44.89 Other specified chronic obstructive pulmonary disease; I48.91 Unspecified atrial fibrillation; W01.0XXA Fall on same level from slipping, tripping and stumbling without subsequent striking against object, initial encounter; F41.9 Anxiety disorder, unspecified; Z88.5 Allergy status to narcotic agent; Z79.82 Long term (current) use of aspirin; Z79.899 Other long term (current) drug therapy; Z83.3 Family history of diabetes mellitus; Z82.49 Family history of ischemic heart disease and other diseases of the circulatory system; Z90.13 Acquired absence of bilateral breasts and nipples; Z90.710 Acquired absence of both cervix and uterus; Z92.21 Personal history of antineoplastic chemotherapy; Z85.3 Personal history of malignant neoplasm of breast; Y92.89 Other specified places as the place of occurrence of the external cause; Z68.38 Body mass index [BMI] 38.0-38.9, adult; Y93.89 Activity, other specified; Y99.8 Other external cause status; I16.0 Hypertensive urgency; E11.65 Type 2 diabetes mellitus with hyperglycemia
CPT/HCPCS: 27250; 36415; 71045; 72170; 73501; 73502; 80048; 82962; 85014; 85018; 85025; 85049; 85610; 85730; 86850; 86900; 86901; 87070; 87075; 87205; 93005; 93306; 96374; 96375; 96376; 97110; 97116; 97163; 99152; G0378; J1100; J1815; J1885; J2250; J2405; J2704; J3490

== ENCOUNTER 2024-08-06 14:23 | Emergency (ER) | payer OTHER, MEDICAID ==
[~2024-08-06] VITALS: Ht 160 cm; Wt 94.0 kg
[~2024-08-06 14:23] MED LIST changes: +ACE3T PO; +CEPH500C PO; +RIVA10TA PO
--- NOTE | 2024-08-06 14:41 | ED.PDOC ---
History of Present Illness HPI Comments 68-year-old female brought in by EMS presents with a chief complaint of right hip pain. Per EMS, patient had a fall x 2 weeks ago and had a right hip replacement and was left with a drain on the right hip. Patient mentions that the drain is no longer draining and that it is causing her pain. Patient mentions that she now ambulates with a walker. Patient denies any recent falls since her surgery. No other symptoms or modifying factors present at this time. Chief Complaint: Wound Check Time Seen by MD: 14:16 Primary Care Provider: ULYSSES Reviewed Notes: Medications, Allergies Allergies: Coded Allergies: Oxycodone (Verified Allergy, Severe, itching, 12/04/21) Hydromorphone (Verified Allergy, Unknown, 08/02/24) Morphine (Verified Allergy, Unknown, 09/12/19) Home Meds Active Scripts Rivaroxaban (XARELTO) 10 Mg Tab, 1 TAB PO DAILY, #14 TAB Prov:SENG LAUREN MD 08/03/24 Acetaminophen W/ Codeine (Tylenol W/Cod #3) 1 Tab Tb, 1 TAB PO QID PRN, #40 TAB Prov:SENG LAUREN MD 08/03/24 Cephalexin Monohydrate (Cephalexin) 500 Mg Cap, 1 CAP PO QID, #40 CAP Prov:SENG LAUREN MD 08/03/24 Ipratropium [place] (Atrovent) 0.03 % Gretel, 0.03 % NEB Q6H PRN for 30 Days Prov:SCOT MCLEOD MD 05/21/15 Reported Medications Aspirin (Aspir-81) 81 Mg Tab, 1 TAB PO DAILY, #30 TAB 5 Refills 09/12/19 Diphenhydramine Hcl (Banophen) 25 Mg Cap, 25 MG PO BID for ALLERGY, CAP 09/12/19 Escitalopram Oxalate (ESCITALOPRAM OXALATE) 20 Mg Tab, 1 TAB PO DAILY for ANXIETY, #30 TAB 5 Refills 09/12/19 Prazosin Hcl (Minipres) 1 Mg Cp, 5 CAP PO QPM for BLOOD PRESSURE, #30 CAP 2 Refills 09/12/19 Oxycodone Hcl (OxyCONTIN ER Tablet) 10 Mg Tb, 1 TAB PO BID for PAIN, #60 TAB 09/12/19 Cholecalciferol (VITAMIN D3) 2,000 Unit Tab, 1 TAB PO DAILY, #30 TAB 5 Refills 02/09/16 Gabapentin (Gabapentin) 600 Mg Tab, 1 TAB PO TID, #90 TAB 3 Refills 02/09/16 Albuterol Sulfate (VENTOLIN MDI) 90 Mcg Ih, 90 MCG IN BID 05/21/15 Quetiapine Fumerate (Seroquel) 200 Mg Tab, 200 MG PO QPM, TAB 05/21/15 Potassium Chloride (KLOR-CON TABLET) 8 Meq Tb, 8 MEQ PO DAILY 05/21/15 Carvedilol (COREG) 3.125 Mg Tab, 1 TAB PO BID, TAB 08/17/13 Albuterol Sulfate (Albuterol Sulfate) 0.083 % Neb, 1 NEB QIDPRN 05/08/12 Furosemide (Lasix) 40 Mg Tab, 1 TAB PO DAILY 01/26/12 Lisinopril (Zestril) 40 Mg Tab, 1 TAB PO BID 01/26/12 Alprazolam (Xanax Xr) 2 Mg Tab, 1 TAB PO TID 01/26/12 Carisoprodol (Soma) 350 Mg Tab, 1 TAB PO TIDP PRN for FOR MUSCLE SPASM 04/23/10 Information Source: Patient, Emergency Med Personnel Mode of Arrival: EMS Severity: Moderate Timing: Hours Duration: Since onset Prehospital treatment: None Past Medical History PAST MEDICAL HISTORY: AFIB, Anxiety, Arthritis, Asthma, Cancer, CHF, COPD, DM, HTN, Liver Surgical History: , Hysterectomy, Tonsillectomy 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 History Family History Family History: Family hx of DM, Family hx of Cancer, Family hx of HTN Social History Smoker: Cigarettes Alcohol: Occasionally Drugs: Marijuana Lives In: Home Constitutional: denies: chills, diaphoresis, fatigue, fever, malaise, sweats, weakness, others EENTM: denies: blurred vision, double vision, ear bleeding, ear discharge, ear drainage, ear pain, ear ringing, eye pain, eye redness, hearing loss, mouth pain, mouth swelling, nasal discharge, nose bleeding, nose congestion, nose pain, photophobia, tearing, throat pain, throat swelling, voice changes, others Respiratory: denies: cough, hemoptysis, orthopnea, SOB at rest, shortness of breath, SOB with excertion, stridor, wheezing, others Cardiovascular: denies: chest pain, dizzy spells, diaphoresis, Dyspnea on exertion, edema, irregular heart beat, left arm pain, lightheadedness, palpitations, PND, syncope, others Gastrointestinal: denies: abdomen distended, abdominal pain, blood streaked bowels, constipated, diarrhea, dysphagia, difficulty swallowing, hematemesis, melena, nausea, poor appetite, poor fluid intake, rectal bleeding, rectal pain, vomiting, others Genitourinary: denies: abnormal vagina bleeding, burning, dyspareunia, dysuria, flank pain, frequency, hematuria, incontinence, pain, , vagina discharge, urgency, others Neurological: denies: dizziness, fainting, headache, left sided numbness, left sided weakness, numbness, paresthesia, pre-existing deficit, right sided num bness, right sided weakness, seizure, speech problems, tingling, tremors, weakness, others Musculoskeletal: reports: muscle pain; denies: back pain, gout, joint pain, joint swelling, muscle stiffness, neck pain, others Integumetry: denies: bruises, change in color, change in hair/nails, dryness, laceration, lesions, lumps, rash, wounds, others Allergic/Immunocompromised: denies: Difficulty Healing, Frequent Infections, Hi ves, Itching, others Hematologic/Lymphatic: denies: anemia, blood clots, easy bleeding, easy bruising, swollen glands, others Endocrine: denies: excessive hunger, excessive sweating, excessive thirst, excessive urination, flushing, intolerance to cold, intolerance to heat, unexplained weight gain, unexplained weight loss, others Psychiatric: denies: anxiety, bipolar disorder, depression, hopeless, panic disorder, schizophrenia, sleepless, suicidal, others All Other Systems: Reviewed and Negative Physical Exam General Appearance: Moderate Distress, Normal HEENT: Normal ENT Inspection, Pharynx Normal, TMs Normal Neck: Full Range of Motion, Non-Tender, Normal, Normal Inspection Respiratory: Chest Non-Tender, Lungs Clear, No Accessory Muscle Use, No Respiratory Distress, Normal Breath Sounds Cardiovascular: No Edema, No JVD, No Murmur, No Gallop, Normal Peripheral Pulses, Regular Rate/Rhythm Breast Exam: Deferred Gastrointestinal: No Organomegaly, Non Tender, No Pulsatile Mass, Normal Bowel Sounds, Soft Genitalia: Deferred Pelvic: Deferred Rectal: Deferred Extremities: No calf tenderness, Normal capillary refill, Normal inspection, Normal range of motion, Non-tender, No pedal edema Musculoskeletal : Apperance: Normal Neurologic: Alert, real estate account executive II-XII nml as Tested, No Motor Deficits, Normal Affect, Normal Mood, No Sensory Deficits Cerebellar Function: NOT DONE Reflexes: NOT DONE Skin: Dry, Normal Color, Warm, Wounds (Wound VAC right hip) Peripheral Pulses: 3+ Radial (R), 3+ Radial (L) Lymphatic: No Adenopathy Was a procedure done? Was a procedure done?: No Differential Dx Considerations may include: Wound care X-Ray, Labs, Meds, VS Vital Signs Date Time Temp Pulse Resp B/P (MAP) Pulse Ox O2 Delivery O2 Flow Rate FiO2 08/06/24 14:28 98.2 78 18 161/94 (116) 97 Patient alert. Has wound VAC in the right hip. Recently discharged from this hospital. Vitals stable. Answering all questions. Blood pressure slightly elevated. Was given clonidine. Wound consultation. Explained to the patient. Was told to follow up with her primary care physician. Was told to come back if there is any problem. Time of 1ST Reevaluation: 14:46 Reevaluation 1ST: Improved Patient Education/Counseling: Diagnosis, Treatment, Prognosis Family Education/Counseling: Diagnosis, Treatment, Prognosis Departure 1 Departure Time of Disposition: 15:11 Impression: Primary Impression: HTN (hypertension) Qualified Codes: I10 - Essential (primary) hypertension Additional Impression: Visit for wound care Disposition: 01 HOME / SELF CARE / HOMELESS Condition: Good Discharged With: Self Critical Care Note Critical Care Time?: No Stability Stability form required: No I personally scribed for TRAVIS HAMILTON MD ([email or web address]) on 08/06/24 at 14:41. Electronically submitted by Abelardo Pittman ([email or web address]). TRAVIS HAMILTON MD Aug 06, 2024 14:41
[2024-08-06 15:48] VITALS: BP 152/97; PULSE 78; RESP 17; TEMP 98.2; O2SAT 97
== END 2024-08-06 15:52 | disposition home or self-care (01) ==
LOC: ER 14:23 → EDBD 14:23 → ER 15:51
DX: M25.551 Pain in right hip (principal); I11.0 Hypertensive heart disease with heart failure; I50.9 Heart failure, unspecified; E11.9 Type 2 diabetes mellitus without complications; J44.9 Chronic obstructive pulmonary disease, unspecified; I48.91 Unspecified atrial fibrillation; F17.210 Nicotine dependence, cigarettes, uncomplicated; Z96.641 Presence of right artificial hip joint; Z90.710 Acquired absence of both cervix and uterus; Z79.01 Long term (current) use of anticoagulants; Z79.82 Long term (current) use of aspirin; Z79.899 Other long term (current) drug therapy; Z88.5 Allergy status to narcotic agent

== ENCOUNTER 2024-08-09 16:06 | Emergency (ER) | payer OTHER, MEDICAID ==
[~2024-08-09] VITALS: Ht 160 cm; Wt 95.0 kg
--- NOTE | 2024-08-09 17:23 | DVH ---
EXAM: CT PELVIS WO CONTRAST INDICATION: post op pain EXAM DATE: 08/09/2024 04:37 PM COMPARISON: XY PELVIS AP on DOS: 08/01/24 TECHNIQUE: Multiple axial CT images of the pelvis were obtained using bone algorithm. Axial and coron al reformatting was done. Bone and soft tissue windows were reviewed. Radiation Dose Information: CT Dose: CTDI volume is 22.82 mGy. Dose-length product is 911.42 mGy*cm Findings: Lack of intravenous contrast limits evaluation of solid organs and vasculature. No evidence of an acute fracture, dislocation, blastic, lytic, or osseous destructive lesions. Right total hip arthroplasty with associated postsurgical changes. The urinary bladder is well-distended and unremarkable. The distal ureters, are within normal limits. Uterine and bilateral adnexal atrophy. No dilatation of the visualized portion of the bowel. No intraluminal free air or free fluid. Impression: 1. No acute osseous or soft tissue abnormalities. 2. Right total hip arthroplasty with associated postsurgical changes.
[2024-08-09 18:46] LABS: Potassium 4.8 mmol/L (3.5-5.1); Sodium 140 mmol/L (136-145)
[2024-08-09 18:47] LABS: Anion Gap 9 (5-15); Calcium 9.6 mg/dL (8.7-10.4); Carbon Dioxide 22 mmol/L (20-31)
[2024-08-09 18:48] LABS: Basophils # (auto) 0 10 ^3/uL (0-0.2); Basophils % (auto) 0.4 % (0.0-2.0); Eosinophils # (auto) 0.6 10 ^3/uL (0-0.8); Eosinophils % (auto) 6.5 % (0.0-7.0); Hematocrit 39.5 % (36.0-46.0); Hemoglobin 12.8 g/dL (12.2-16.2); Lymphocytes # (auto) 2.6 10 ^3/uL (0.4-5.4); Mean Corpuscular Hemoglobin 31.7 pg (28.0-32.0); Mean Corpuscular Hgb Conc. 32.4 g/dL (32.0-36.0); Monocytes % (auto) 11.5 % (0.0-12.0); Neutrophils # (auto) 4.4 10 ^3/uL (1.6-8.6); Neutrophils % (auto) 51.6 % (37.0-80.0); Nucleated Red Blood Cells % 0.3 %; Platelet Count (auto) 315 10^3/uL (140-450); Red Blood Cells 4.03 10^6/uL (4.0-5.20); Red Cell Distribution Width 13.3 % (11.8-14.3); White Blood Cell 8.5 10^3/uL (4.4-10.8)
[2024-08-09 18:52] LABS: BUN/Creatinine Ratio 28.6 (10.0-20.0); Glucose 102 mg/dL (74-106)
[2024-08-09 19:02] LABS: Chloride 109 mmol/L (98-107)
[2024-08-09 19:04] LABS: Blood Urea Nitrogen 24 mg/dL (9-23)
--- NOTE | 2024-08-09 20:04 | ED.PDOC ---
Musculoskeletal HPI Comments Patient presents to the emergency department complaining of right hip pain. Patient went to her primary doctor's appointment for follow up after having surgery on her right hip. He was concerns of her blood pressure being elevated. They recommended her to come into the emergency department because her pain was not improving. Upon arrival patient was blood pressure he was good patient denies any headaches. States her pain has been constant since discharge. Says the pain is improved from prior when it was dislocated but she was still been having constant pain denies any significant discharge. States she does have a wound VAC in place. Chief Complaint: Lower Extremity Time Seen by MD: 16:27 Primary Care Provider: TOM Reviewed Notes: Nurses Notes Allergies: Coded Allergies: Oxycodone (Verified Allergy, Severe, itching, 12/04/21) Hydromorphone (Verified Allergy, Unknown, 08/02/24) Morphine (Verified Allergy, Unknown, 09/12/19) Home Meds Active Scripts Rivaroxaban (XARELTO) 10 Mg Tab, 1 TAB PO DAILY, #14 TAB Prov:SENG LAUREN MD 08/03/24 Acetaminophen W/ Codeine (Tylenol W/Cod #3) 1 Tab Tb, 1 TAB PO QID PRN, #40 TAB Prov:SENG LAUREN MD 08/03/24 Cephalexin Monohydrate (Cephalexin) 500 Mg Cap, 1 CAP PO QID, #40 CAP Prov:SENG LAUREN MD 08/03/24 Ipratropium Preston (Atrovent) 0.03 % Gretel, 0.03 % NEB Q6H PRN for 30 Days Prov:SCOT MCLEOD MD 05/21/15 Reported Medications Aspirin (Aspir-81) 81 Mg Tab, 1 TAB PO DAILY, #30 TAB 5 Refills 09/12/19 Diphenhydramine Hcl (Banophen) 25 Mg Cap, 25 MG PO BID for ALLERGY, CAP 09/12/19 Escitalopram Oxalate (ESCITALOPRAM OXALATE) 20 Mg Tab, 1 TAB PO DAILY for ANXIETY, #30 TAB 5 Refills 09/12/19 Prazosin Hcl (Minipres) 1 Mg Cp, 5 CAP PO QPM for BLOOD PRESSURE, #30 CAP 2 Refills 09/12/19 Oxycodone Hcl (OxyCONTIN ER Tablet) 10 Mg Tb, 1 TAB PO BID for PAIN, #60 TAB 09/12/19 Cholecalciferol (VITAMIN D3) 2,000 Unit Tab, 1 TAB PO DAILY, #30 TAB 5 Refills 02/09/16 Gabapentin (Gabapentin) 600 Mg Tab, 1 TAB PO TID, #90 TAB 3 Refills 02/09/16 Albuterol Sulfate (VENTOLIN MDI) 90 Mcg Ih, 90 MCG IN BID 05/21/15 Quetiapine Fumerate (Seroquel) 200 Mg Tab, 200 MG PO QPM, TAB 05/21/15 Potassium Chloride (KLOR-CON TABLET) 8 Meq Tb, 8 MEQ PO DAILY 05/21/15 Carvedilol (COREG) 3.125 Mg Tab, 1 TAB PO BID, TAB 08/17/13 Albuterol Sulfate (Albuterol Sulfate) 0.083 % Neb, 1 NEB QIDPRN 05/08/12 Furosemide (Lasix) 40 Mg Tab, 1 TAB PO DAILY 01/26/12 Lisinopril (Zestril) 40 Mg Tab, 1 TAB PO BID 01/26/12 Alprazolam (Xanax Xr) 2 Mg Tab, 1 TAB PO TID 01/26/12 Carisoprodol (Soma) 350 Mg Tab, 1 TAB PO TIDP PRN for FOR MUSCLE SPASM 04/23/10 Information Source: Patient Mode of Arrival: Wheelchair Past Medical History PAST MEDICAL HISTORY: AFIB, Anxiety, Arthritis, Asthma, Cancer, CHF, COPD, DM, HTN, Liver Surgical History: , Hysterectomy, Tonsillectomy 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 History Family History Family History: Family hx of DM, Family hx of Cancer, Family hx of HTN Social History Smoker: Cigarettes Alcohol: Occasionally Drugs: Marijuana Lives In: Home Constitutional: denies: chills, diaphoresis, fatigue, fever, malaise, sweats, weakness, others EENTM: denies: blurred vision, double vision, ear bleeding, ear discharge, ear drainage, ear pain, ear ringing, eye pain, eye redness, hearing loss, mouth pain, mouth swelling, nasal discharge, nose bleeding, nose congestion, nose pain, photophobia, tearing, throat pain, throat swelling, voice changes, others Respiratory: denies: cough, hemoptysis, orthopnea, SOB at rest, shortness of breath, SOB with excertion, stridor, wheezing, others Cardiovascular: denies: chest pain, dizzy spells, diaphoresis, Dyspnea on exertion, edema, irregular heart beat, left arm pain, lightheadedness, palpitations, PND, syncope, others Gastrointestinal: denies: abdomen distended, abdominal pain, blood streaked bowels, constipated, diarrhea, dysphagia, difficulty swallowing, hematemesis, melena, nausea, poor appetite, poor fluid intake, rectal bleeding, rectal pain, vomiting, others Genitourinary: denies: abnormal vagina bleeding, burning, dyspareunia, dysuria, flank pain, frequency, hematuria, incontinence, pain, , vagina discharge, urgency, others Neurological: denies: dizziness, fainting, headache, left sided numbness, left sided weakness, numbness, paresthesia, pre-existing deficit, right sided numbness, right sided weakness, seizure, speech problems, tingling, tremors, weakness, others Musculoskeletal: reports: muscle pain, muscle stiffness; denies: back pain, gout, joint pain, joint swelling, neck pain, others Integumetry: denies: bruises, change in color, change in hair/nails, dryness, laceration, lesions, lumps, rash, wounds, others Allergic/Immunocompromised: denies: Difficulty Healing, Frequent Infections, H bonnie, Itching, others Hematologic/Lymphatic: denies: anemia, blood clots, easy bleeding, easy bruising, swollen glands, others Physical Exam General Appearance: No Apparent Distress, Normal HEENT: Normal ENT Inspection, Pharynx Normal, TMs Normal Neck: Full Range of Motion, Non-Tender, Normal, Normal Inspection Respiratory: Chest Non-Tender, Lungs Clear, No Accessory Muscle Use, No Respi ratory Distress, Normal Breath Sounds Cardiovascular: No Edema, No JVD, No Murmur, No Gallop, Normal Peripheral Pulses, Regular Rate/Rhythm Breast Exam: Deferred Gastrointestinal: No Organomegaly, Non Tender, No Pulsatile Mass, Normal Bowel Sounds, Soft Genitalia: Deferred Pelvic: Deferred Rectal: Deferred Extremities: No calf tenderness, Normal capillary refill, Normal inspection, Normal range of motion, Non-tender, No pedal edema Musculoskeletal : Location: Right Extremity Location: Hip (Tender to palpation, wound VAC in place.) Apperance: Normal Neurologic: Alert, road hogger operator II-XII nml as Tested, No Motor Deficits, Normal Affect, Normal Mood, No Sensory Deficits Cerebellar Function: Normal Reflexes: Normal Skin: Dry, Normal Color, Warm Lymphatic: No Adenopathy Was a procedure done? Was a procedure done?: No Differential Diagnosis EXT Differential Diagnosis: Deep Vein Thrombosis, Compartment Syndrome, Fracture, Sprain, Dislocation X-Ray, Labs, Meds, VS Vital Signs Date Time Temp Pulse Resp B/P (MAP) Pulse Ox O2 Delivery O2 Flow Rate FiO2 08/09/24 17:58 98.0 75 20 103/58 (73) 96 98.0 08/09/24 16:24 97.2 6 16 134/65 (88) 95 Lab Test 08/09/24 17:39 Range/Units White Blood Count 8.5 4.4-10.8 10^3/uL Red Blood Count 4.03 4.0-5.20 10^6/uL Hemoglobin 12.8 12.2-16.2 g/dL Hematocrit 39.5 # 36.0-46.0 % Mean Corpuscular Volume 98.0 80.0-100.0 fL Mean Corpuscular Hemoglobin 31.7 28.0-32.0 pg Mean Corpuscular Hemoglobin Concent 32.4 32.0-36.0 g/dL Red Cell Distribution Width 13.3 11.8-14.3 % Platelet Count 315 140-450 10^3/uL Mean Platelet Volume 7.7 6.9-10.8 fL Neutrophils (%) (Auto) 51.6 37.0-80.0 % Lymphocytes (%) (Auto) 30.0 10.0-50.0 % Monocytes (%) (Auto) 11.5 0.0-12.0 % Eosinophils (%) (Auto) 6.5 0.0-7.0 % Basophils (%) (Auto) 0.4 0.0-2.0 % Neutrophils # (Auto) 4.4 1.6-8.6 10 ^3/uL Lymphocytes # (Auto) 2.6 0.4-5.4 10 ^3/uL Monocytes # (Auto) 1.0 0-1.3 10 ^3/uL Eosinophils # (Auto) 0.6 0-0.8 10 ^3/uL Basophils # (Auto) 0 0-0.2 10 ^3/uL Nucleated Red Blood Cells 0.3 % Sodium Level 140 136-145 mmol/L Potassium Level 4.8 3.5-5.1 mmol/L Chloride Level 109 H 98-107 mmol/L Carbon Dioxide Level 22 20-31 mmol/L Anion Gap 9 5-15 Blood Urea Nitrogen 24 H 9-23 mg/dL Creatinine 0.84 0.550-1.02 mg/dL Glomerular Filtration Rate Calc 75 >90 mL/min BUN/Creatinine Ratio 28.6 H 10.0-20.0 Serum Glucose 102 74-106 mg/dL Calcium Level 9.6 8.7-10.4 mg/dL X-Ray, Labs, Meds, VS Comment Imaging: X-rays and CT scans were reviewed and interpreted by this provider, imaging shows no fractures and no pathological disease. Pending radiology review. Laboratory: Labs reviewed and interpreted by this provider. No significant abnormalities noted. Patient has prior medical visits reviewed. Med reconciliation performed Vital signs reviewed Time of 1ST Reevaluation: 20:56 Reevaluation 1ST: Unchanged Patient Education/Counseling: Diagnosis, Treatment, Need For Follow Up (Follow up with Orthopedics surgeon who performed surgery next available appointment.) Family Education/Counseling: Diagnosis Departure 1 Departure Time of Disposition: 20:56 Impression: Primary Impression: Right hip pain Disposition: 01 HOME / SELF CARE / HOMELESS Condition: Fair Discharged With: Self Comments Continue with the pain medications as prescribed. Follow up with marketing project specialist next available appointment. Critical Care Note Critical Care Time?: No Stability Stability form required: No Heart Score Heart Score: Heart Score Response (Comments) Value History N/A 0 EKG N/A 0 Age N/A 0 Risk Factors N/A 0 Troponin N/A 0 Total 0 LUIS HOOKP Aug 09, 2024 20:04
[2024-08-09 22:12] VITALS: BP 141/66; TEMP 98.3
[2024-08-09 22:19] VITALS: PULSE 87; RESP 17; O2SAT 99
== END 2024-08-09 22:21 | disposition home or self-care (01) ==
LOC: ER 16:06
DX: M25.551 Pain in right hip (principal); I11.0 Hypertensive heart disease with heart failure; I50.9 Heart failure, unspecified; E11.9 Type 2 diabetes mellitus without complications; F17.210 Nicotine dependence, cigarettes, uncomplicated; F41.9 Anxiety disorder, unspecified; G89.18 Other acute postprocedural pain; I48.91 Unspecified atrial fibrillation; M19.90 Unspecified osteoarthritis, unspecified site; Z79.82 Long term (current) use of aspirin; Z79.899 Other long term (current) drug therapy; Z90.710 Acquired absence of both cervix and uterus; Z96.641 Presence of right artificial hip joint; Z88.5 Allergy status to narcotic agent; Z88.8 Allergy status to other drugs, medicaments and biological substances
CPT/HCPCS: 36415; 72192; 80048; 85025

== ENCOUNTER 2025-02-25 10:13 | Inpatient (IN) | payer OTHER, MEDICARE, MEDICAID ==
[~2025-02-25] VITALS: Ht 172.7 cm; Wt 92.0 kg
[2025-02-25 10:30] VITALS: PULSE 72; RESP 16; O2SAT 96
--- NOTE | 2025-02-25 10:34 | ED.PDOC ---
Altered Mental Status HPI Comments This is a 69 year old female BIBA presenting to the ED with chief complaint of anxiety. EMS reports patient had been noted by family at home to be increasingly altered with associated anxiety and emotional distress. EMS relays that patient's mentation improved since onset, but patient has now been complaining of left knee pain. EMS states patient was hypertensive at 200/96 on their monitor. Patient notes that she has ran out of her anxiety medication at home. Patient denies any SOB, chest pain, dizziness, headache, numbness, weakness, or fall injury. Chief Complaint: ALOC Time Seen by MD: 10:32 Primary Care Provider: TOM Reviewed Notes: Nurses Notes, Hand Salter Notes, Medications, Allergies Allergies: Coded Allergies: Oxycodone (Verified Allergy, Severe, itching, 12/04/21) Hydromorphone (Verified Allergy, Unknown, 08/02/24) Morphine (Verified Allergy, Unknown, 09/12/19) Home Meds Active Scripts Rivaroxaban (XARELTO) 10 Mg Tab, 1 TAB PO DAILY, #14 TAB Prov:SENG LAUREN MD 08/03/24 Acetaminophen W/ Codeine (Tylenol W/Cod #3) 1 Tab Tb, 1 TAB PO QID PRN, #40 TAB Prov:SENG LAUREN MD 08/03/24 Cephalexin Monohydrate (Cephalexin) 500 Mg Cap, 1 CAP PO QID, #40 CAP Prov:SENG LAUREN MD 08/03/24 Ipratropium Deaver (Atrovent) 0.03 % Gretel, 0.03 % NEB Q6H PRN for 30 Days Prov:SCOT MCLEOD MD 05/21/15 Reported Medications Aspirin (Aspir-81) 81 Mg Tab, 1 TAB PO DAILY, #30 TAB 5 Refills 09/12/19 Diphenhydramine Hcl (Banophen) 25 Mg Cap, 25 MG PO BID for ALLERGY, CAP 09/12/19 Escitalopram Oxalate (ESCITALOPRAM OXALATE) 20 Mg Tab, 1 TAB PO DAILY for AN XIETY, #30 TAB 5 Refills 09/12/19 Prazosin Hcl (Minipres) 1 Mg Cp, 5 CAP PO QPM for BLOOD PRESSURE, #30 CAP 2 Refills 09/12/19 Oxycodone Hcl (OxyCONTIN ER Tablet) 10 Mg Tb, 1 TAB PO BID for PAIN, #60 TAB 09/12/19 Cholecalciferol (VITAMIN D3) 2,000 Unit Tab, 1 TAB PO DAILY, #30 TAB 5 Refills 02/09/16 Gabapentin (Gabapentin) 600 Mg Tab, 1 TAB PO TID, #90 TAB 3 Refills 02/09/16 Albuterol Sulfate (VENTOLIN MDI) 90 Mcg Ih, 90 MCG IN BID 05/21/15 Quetiapine Fumerate (Seroquel) 200 Mg Tab, 200 MG PO QPM, TAB 05/21/15 Potassium Chloride (KLOR-CON TABLET) 8 Meq Tb, 8 MEQ PO DAILY 05/21/15 Carvedilol (COREG) 3.125 Mg Tab, 1 TAB PO BID, TAB 08/17/13 Albuterol Sulfate (Albuterol Sulfate) 0.083 % Neb, 1 NEB QIDPRN 05/08/12 Furosemide (Lasix) 40 Mg Tab, 1 TAB PO DAILY 01/26/12 Lisinopril (Zestril) 40 Mg Tab, 1 TAB PO BID 01/26/12 Alprazolam (Xanax Xr) 2 Mg Tab, 1 TAB PO TID 01/26/12 Carisoprodol (Soma) 350 Mg Tab, 1 TAB PO TIDP PRN for FOR MUSCLE SPASM 04/23/10 Information Source: Patient, Emergency Med Personnel Mode of Arrival: EMS Severity: Moderate, Unable to Care for Self Timing: Hours Duration: Since onset Prehospital treatment: None Quality: Change in Behavior, Confusion Recent: None Past Medical History PAST MEDICAL HISTORY: AFIB, Anxiety, Arthritis, Asthma, Cancer, CHF, COPD, DM, HTN, Liver Surgical History: , Hysterectomy, Tonsillectomy Surgical History (Other): Rt hip surgery, left knee surgery INSULATION 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: No Pertinent INSULATION 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 History Family History Family History: Family hx of DM, Family hx of Cancer, Family hx of HTN Social History Smoker: Cigarettes Alcohol: Occasionally Drugs: Marijuana Lives In: Home Constitutional: denies: chills, diaphoresis, fatigue, fever, malaise, sweats, weakness, others EENTM: denies: blurred vision, double vision, ear bleeding, ear discharge, ear drainage, ear pain, ear ringing, eye pain, eye redness, hearing loss, mouth pain, mouth swelling, nasal discharge, nose bleeding, nose congestion, nose pain, photophobia, tearing, throat pain, throat swelling, voice changes, others Respiratory: denies: cough, hemoptysis, orthopnea, SOB at rest, shortness of breath, SOB with excertion, stridor, wheezing, others Cardiovascular: denies: chest pain, dizzy spells, diaphoresis, Dyspnea on exertion, edema, irregular heart beat, left arm pain, lightheadedness, palpitations, PND, syncope, others Gastrointestinal: denies: abdomen distended, abdominal pain, blood streaked bowels, constipated, diarrhea, dysphagia, difficulty swallowing, hematemesis, melena, nausea, poor appetite, poor fluid intake, rectal bleeding, rectal pain, vomiting, others Genitourinary: denies: abnormal vagina bleeding, burning, dyspareunia, dysuria, flank pain, frequency, hematuria, incontinence, pain, , vagina discharge, urgency, others Neurological: denies: dizziness, fainting, headache, left sided numbness, left sided weakness, numbness, paresthesia, pre-existing deficit, right sided numbness, right sided weakness, seizure, speech problems, tingling, tremors, weakness, others Musculoskeletal: reports: others (Left knee pain); denies: back pain, gout, joint pain, joint swelling, muscle pain, muscle stiffness, neck pain Integumetry: denies: bruises, change in color, change in hair/nails, dryness, laceration, lesions, lumps, rash, wounds, others Allergic/Immunocompromised: denies: Difficulty Healing, Frequent Infections, Hives, Itching, others Hematologic/Lymphatic: denies: anemia, blood clots, easy bleeding, easy bruising, swollen glands, others Endocrine: denies: excessive hunger, excessive sweating, excessive thirst, excessive urination, flushing, intolerance to cold, intolerance to heat, unexplained weight gain, unexplained weight loss, others Psychiatric: reports: anxiety; denies: bipolar disorder, depression, hopeless, panic disorder, schizophrenia, sleepless, suicidal, others All Other Systems: Reviewed and Negative Physical Exam General Appearance: Moderate Distress, Normal HEENT: Normal ENT Inspection, Pharynx Normal, TMs Normal Neck: Full Range of Motion, Non-Tender, Normal, Normal Inspection Respiratory: Chest Non-Tender, Lungs Clear, No Accessory Muscle Use, No Respiratory Distress, Normal Breath Sounds Cardiovascular: No Edema, No JVD, No Murmur, No Gallop, Normal Peripheral Pulses, Regular Rate/Rhythm Breast Exam: Deferred Gastrointestinal: No Organomegaly, Non Tender, No Pulsatile Mass, Normal Bowel Sounds, Soft Genitalia: Deferred Pelvic: Deferred Rectal: Deferred Extremities: No calf tenderness, Normal capillary refill, Normal inspection, Normal range of motion, Non-tender, No pedal edema Musculoskeletal : Apperance: Normal Neurologic: Disoriented, No Motor Deficits, Normal Affect, Normal Mood, No Sensory Deficits Cerebellar Function: NOT DONE Reflexes: NOT DONE Skin: Dry, Normal Color, Warm Peripheral Pulses: 3+ Radial (R), 3+ Radial (L) Lymphatic: No Adenopathy Was a procedure done? Was a procedure done?: No Differential Diagnosis (ALOC) Differential Diagnosis: Encephalopathy, Sepsis X-Ray, Labs, Meds, VS Vital Signs Date Time Temp Pulse Resp B/P (MAP) Pulse Ox O2 Delivery O2 Flow Rate FiO2 02/25/25 12:19 155/114 02/25/25 12:00 98.4 73 17 155/114 (128) 100 98.4 02/25/25 10:30 72 16 200/96 (130) 96 02/25/25 10:30 72 16 96 Room Air* 0 21 02/25/25 10:26 97.9 78 19 200/96 99 97.9 Lab Test 02/25/25 13:56 02/25/25 12:14 02/25/25 11:06 Range/Units Troponin I High Sensitivity 11 10 10 </=34 ng/L White Blood Count 10.3 4.4-10.8 10^3/uL Red Blood Count 4.47 4.0-5.20 10^6/uL Hemoglobin 14.5 12.2-16.2 g/dL Hematocrit 43.1 36.0-46.0 % Mean Corpuscular Volume 96.5 80.0-100.0 fL Mean Corpuscular Hemoglobin 32.5 H 28.0-32.0 pg Mean Corpuscular Hemoglobin Concent 33.6 32.0-36.0 g/dL Red Cell Distribution Width 13.0 11.8-14.3 % Platelet Count 259 140-450 10^3/uL Mean Platelet Volume 8.1 6.9-10.8 fL Neutrophils (%) (Auto) 56.7 37.0-80.0 % Lymphocytes (%) (Auto) 33.9 10.0-50.0 % Monocytes (%) (Auto) 8.0 0.0-12.0 % Eosinophils (%) (Auto) 1.2 0.0-7.0 % Basophils (%) (Auto) 0.2 0.0-2.0 % Neutrophils # (Auto) 5.9 1.6-8.6 10 ^3/uL Lymphocytes # (Auto) 3.5 0.4-5.4 10 ^3/uL Monocytes # (Auto) 0.8 0-1.3 10 ^3/uL Eosinophils # (Auto) 0.1 0-0.8 10 ^3/uL Basophils # (Auto) 0 0-0.2 10 ^3/uL Nucleated Red Blood Cells 0.1 % Plasma/Serum Blood Alcohol < 3.0 <10 mg/dL Current Medications Medications (Trade) Dose Ordered Sig/Alberto Route Start Time Stop Time Status Last Admin Sodium Chloride 1,000 ml @ 150 mls/hr Q6H40M ONCE IV 02/25/25 10:45 02/25/25 17:24 02/25/25 11:08 Clonidine HCl (Catapres Tablet) 0.2 mg ONCE ONCE PO 02/25/25 12:15 02/25/25 12:16 DC 02/25/25 12:19 [place] [id number] Ph: [phone] DIAGNOSTIC IMAGING Diagnostic Imaging Report : [id number] Signed PATIENT: ANGELES CARRANZA ACCT: [id number] UNIT: [id number] : 1955 LOC: ER ROOM / BED: / AGE / SEX: 69 / F ADM STATUS: REG ER SERVICE 1035 ORDERING PHYSICIAN: TRAVIS HAMILTON MD PROCEDURE(s): HWOCT - HEAD WITHOUT CONTRAST REASON: altered ORDER NUMBER(s): [id number], ACCESSION NUMBER(s): [id number] EXAM: CT HEAD WITHOUT CONTRAST INDICATION: Altered TECHNIQUE: CT of the head without intravenous contrast. Coronal and sagittal reformatted images are submitted. Radiation Dose : 1. Head: CT Dose: CTDI volume is 48.3 mGy. Dose-length product is 908.9 mGy*cm The dose indicators for CT are the volume Computed Tomography (CT) Dose Index (CTDIvol) and the Dose Length Product (DLP), and are measured in units of mGy and mGy-cm, respectively. These indicators are not patient dose, but values generated from the CT scanner acquisition factors. The report includes radiation exposure data for exposures received during this examination. All CT scans at this medical facility are performed using dose modulation techniques as appropriate to a performed exam including the following: Automated exposure control was utilized; adjustment of the MA and/or KV according to patient size; and use of iterative reconstruction technique. COMPARISON: None FINDINGS: There is no evidence of acute intracranial hemorrhage, extra-axial collection, mass effect, midline shift, herniation or hydrocephalus. There are periventricular and subcortical hypodensities, nonspecific, but likely reflecting sequelae of chronic microvascular ischemic changes. The ventricles, sulci and cisterns are age appropriate. The gannon-white differentiation is intact. The visualized paranasal sinuses and mastoid air cells are clear. No depressed calvarial fracture. The surrounding soft tissues are unremarkable. IMPRESSION: 1. No evidence of acute intracranial abnormality. ATED BY: WOODY DOTY MD DICTATED DATE/TIME: 02/25/25 1144 SIGNED BY: WOODY DOTY MD SIGNED DATE/TIME: 02/25/25 1144 CC Patient slightly disoriented. Possible TIA. CT of the head reviewed does not show any acute changes. Over time she started being more alert. Possibly has psychiatric illness. WBC within normal limits. Cardiac marker within normal limits. Blood pressure elevated. Was given labetalol. Continue monitoring. Images Reviewed?: Images reviewed and evaluated by me Time of 1ST Reevaluation: 11:31 Reevaluation 1ST: Unchanged Patient Education/Counseling: Diagnosis, Treatment Family Education/Counseling: No Family Present SEPSIS Sepsis Screen Date sepsis recognized/suspect: Feb 25, 2025 Time Sepsis recognized/suspect: 1010 Recent Procedure: No On Antibiotic Therapy: No Respiratory Rate >20: No Heart Rate >90: No Temp<36 C (96.8 F) or >38.3 C: No SBP <90 or MAP <65 mmHG: No New Acute Mental Status Change: No Is the patient on CPAP, BIPAP,: No Physician Orders Urinalysis (02/25/25 10:35) Head Without Contrast (02/25/25 10:35) Sequins Winder (02/25/25 10:35) Sodium Chloride 0.9% (02/25/25 10:45) Vital Signs Date Time Temp Pulse Resp B/P (MAP) Pulse Ox O2 Delivery O2 Flow Rate FiO2 02/25/25 12:19 155/114 02/25/25 12:00 98.4 73 17 155/114 (128) 100 98.4 02/25/25 10:30 72 16 200/96 (130) 96 02/25/25 10:30 72 16 96 Room Air* 0 21 02/25/25 10:26 97.9 78 19 200/96 99 97.9 Laboratory Tests Test 02/25/25 11:06 White Blood Count 10.3 10^3/uL (4.4-10.8) Medications Medications Dose Ordered Sig/Alberto Route Start Time Stop Time Status Last Admin Dose Admin Clonidine HCl 0.2 mg ONCE ONCE PO 02/25/25 12:15 02/25/25 12:16 DC 02/25/25 12:19 Sodium Chloride 1,000 ml @ 150 mls/hr Q6H40M ONCE IV 02/25/25 10:45 02/25/25 17:24 02/25/25 11:08 Departure 1 Departure Time of Disposition: 15:04 Impression: Primary Impression: Metabolic encephalopathy Additional Impression: Hypertensive emergency Disposition: 09 ADMITTED INPATIENT Admit to: Med Surg Condition: Guarded Critical Care Note Critical Care Time?: Yes (90 min-critical care time only) Stability Stability form required: No Heart Score Heart Score: Heart Score Response (Comments) Value History Slightly Suspicious 0 EKG Normal 0 Age >65 2 Risk Factors >3 or Hx ASHD 2 Troponin Normal limit 0 Total 4 I personally scribed for TRAVIS HAMILTON MD ([email or web address]) on 02/25/25 at 10:34. Electronically submitted by Vasyl Hutchins ([email or web address]). I personally scribed for TRAVIS HAMILTON MD ([email or web address]) on 02/25/25 at 12:18. Electronically submitted by Vasyl Hutchins ([email or web address]). TRAVIS HAMILTON MD Feb 25, 2025 10:34
[2025-02-25] MEDS: SODIUM CHLORIDE 0.9% 1,000 ML IV ONE (11:08)
[2025-02-25 11:19] LABS: Hematocrit 43.1 % (36.0-46.0); Hemoglobin 14.5 g/dL (12.2-16.2); Mean Corpuscular Hemoglobin 32.5 pg (28.0-32.0); Mean Corpuscular Volume 96.5 fL (80.0-100.0); Nucleated Red Blood Cells % 0.1 %
--- NOTE | 2025-02-25 11:47 | DVH ---
EXAM: CT HEAD WITHOUT CONTRAST INDICATION: Altered TECHNIQUE: CT of the head without intravenous contrast. Coronal and sagittal reformatted images are s ubmitted. Radiation Dose : 1. Head: CT Dose: CTDI volume is 48.3 mGy. Dose-length product is 908.9 mGy*cm The dose indicators for CT are the volume Computed Tomography (CT) Dose Index (CTDIvol) and the Dose Length Product (DLP), and are measured in units of mGy and mGy-cm, respectively. These indicators are not patient dose, but values generated from the CT scanner acquisition factors. The report includes radiation exposure data for exposures received during this examination. All CT scans at this medical facility are performed using dose modulation techniques as appropriate to a performed exam including the following: Automated exposure control was utilized; adjustment of the MA and/or KV according to patient size; and use of iterative reconstruction technique. COMPARISON: None FINDINGS: There is no evidence of acute intracranial hemorrhage, extra-axial collection, mass effect, midline s hift, herniation or hydrocephalus. There are periventricular and subcortical hypodensities, nonspecific, but likely reflecting sequelae of chronic microvascular ischemic changes. The ventricles, sulci and cisterns are age appropriate. The gannon-white differentiation is intact. The visualized paranasal sinuses and mastoid air cells are clear. No depressed calvarial fracture. The surrounding soft tissues are unremarkable. IMPRESSION: 1. No evidence of acute intracranial abnormality.
[2025-02-25] MEDS: LABETALOL HCL 20 MG/4 ML VL IV ONE (15:29)
--- NOTE | 2025-02-25 16:07 | DVHHPRES ---
History of Present Illness Resident Creating Document: RIVAS BUCKLEY RESIDENT History of Present Illness Melissa Roper is a 69-year-old female with a past medical history of type 2 diabetes mellitus, hypertension, breast cancer status post bilateral mastectomy who presented to the emergency department with altered mental status. However during my clinical evaluation, the patient was alert and oriented to person, place and time. She reports experiencing severe left knee pain for an unspecified duration, rated 10/10 in intensity which has compelled her to use a wheelchair for mobility. States that her orthopedic physician has recommended surgical intervention. She denies any redness, swelling or warmth over the joint. She reports no fever, chills, chest pain, shortness of breath, or other systemic symptoms. No recent falls or trauma were reported. Past medical history: type 2 diabetes mellitus, hypertension Past surgical history: Hysterectomy, bilateral mastectomy due to breast cancer Smokin pack years. Quit at the age of 42. Alcohol: Occasionally Drugs: Used in the past PCP: Dr. Sebas Holliday Code status: Full code Review of Systems Musculoskeletal: other (knee pain) Allergies: Coded Allergies: Oxycodone (Verified Allergy, Severe, itching, 12/04/21) Hydromorphone (Verified Allergy, Unknown, 08/02/24) Morphine (Verified Allergy, Unknown, 09/12/19) Exam Vital Signs Vital Signs Date Time Temp Pulse Resp B/P (MAP) Pulse Ox O2 Delivery O2 Flow Rate FiO2 02/25/25 15:29 65 111/67 02/25/25 12:00 98.4 17 100 98.4 02/25/25 10:30 Room Air* 0 21 Exam Pt is lying on bed General Appearance: Alert, Oriented X3, Cooperative, Mild distress HEENT: Atraumatic, Mucous membranes moist/pink Respiratory: Clear to auscultation, Normal air movement, No added sounds Cardiovascular: Regular rate, Normal S1, Normal S2, No murmurs Abdominal/ : Active bowel sounds, Soft, no distention, no tenderness Extremities: No edema, Normal pulses, severe left knee tenderness, no warmth or redness Skin: No Significant rash, except past surgical scars Neuro: Normal speech, sensorimotor deficits none Psych/Mental Status: Mental status NL, Mood NL Nurse was there as payroll manager during examination Labs/Xrays Labs Test 02/25/25 13:56 02/25/25 11:06 Range/Units Troponin I High Sensitivity 11 </=34 ng/L White Blood Count 10.3 4.4-10.8 10^3/uL Red Blood Count 4.47 4.0-5.20 10^6/uL Hemoglobin 14.5 12.2-16.2 g/dL Hematocrit 43.1 36.0-46.0 % Mean Corpuscular Volume 96.5 80.0-100.0 fL Mean Corpuscular Hemoglobin 32.5 H 28.0-32.0 pg Mean Corpuscular Hemoglobin Concent 33.6 32.0-36.0 g/dL Red Cell Distribution Width 13.0 11.8-14.3 % Platelet Count 259 140-450 10^3/uL Mean Platelet Volume 8.1 6.9-10.8 fL Neutrophils (%) (Auto) 56.7 37.0-80.0 % Lymphocytes (%) (Auto) 33.9 10.0-50.0 % Monocytes (%) (Auto) 8.0 0.0-12.0 % Eosinophils (%) (Auto) 1.2 0.0-7.0 % Basophils (%) (Auto) 0.2 0.0-2.0 % Neutrophils # (Auto) 5.9 1.6-8.6 10 ^3/uL Lymphocytes # (Auto) 3.5 0.4-5.4 10 ^3/uL Monocytes # (Auto) 0.8 0-1.3 10 ^3/uL Eosinophils # (Auto) 0.1 0-0.8 10 ^3/uL Basophils # (Auto) 0 0-0.2 10 ^3/uL Nucleated Red Blood Cells 0.1 % Plasma/Serum Blood Alcohol < 3.0 <10 mg/dL SEPSIS Sepsis Screen Date sepsis recognized/suspect: Feb 25, 2025 Time Sepsis recognized/suspect: 1030 Recent Procedure: No On Antibiotic Therapy: No Respiratory Rate >20: No Heart Rate >90: No Temp<36 C (96.8 F) or >38.3 C: No SBP <90 or MAP <65 mmHG: No New Acute Mental Status Change: Yes Is the patient on CPAP, BIPAP,: No Physician Orders Urinalysis (02/25/25 10:35) Head Without Contrast (02/25/25 10:35) Cardiac Exercise Physiologist (02/25/25 10:35) Sodium Chloride 0.9% (02/25/25 10:45) Ketorolac Injection (Toradol Injection) (02/25/25 16:15) Vital Signs Date Time Temp Pulse Resp B/P (MAP) Pulse Ox O2 Delivery O2 Flow Rate FiO2 02/25/25 15:29 65 111/67 02/25/25 15:03 111/67 02/25/25 12:19 155/114 02/25/25 12:00 98.4 73 17 155/114 (128) 100 98.4 02/25/25 10:30 72 16 200/96 (130) 96 02/25/25 10:30 72 16 96 Room Air* 0 21 02/25/25 10:26 97.9 78 19 200/96 99 97.9 Laboratory Tests Test 02/25/25 11:06 White Blood Count 10.3 10^3/uL (4.4-10.8) Medications Medications Dose Ordered Sig/Alberto Route Start Time Stop Time Status Last Admin Dose Admin Clonidine HCl 0.2 mg ONCE ONCE PO 02/25/25 12:15 02/25/25 12:16 DC 02/25/25 12:19 0.2 MG Sodium Chloride 1,000 ml @ 150 mls/hr Q6H40M ONCE IV 02/25/25 10:45 02/25/25 17:24 02/25/25 11:08 150 MLS/HR Assessment/Plan Assessment/Plan Hypertensive encephalopathy Ruled out ACS Painful left knee osteoarthritis IV hydralazine IV enalaprilat IV labetalol Continue home medications lisinopril 40 mg b.i.d., carvedilol 3.125 mg p.o. b.i.d. Pain management with IV Toradol EKG: No ischemic changes, troponin 3 times negative Diabetes mellitus Mild sliding scale COPD/asthma Albuterol inhaler Psychiatric disorder Quetiapine Citalopram Prazosin GI prophylaxis: Pantoprazole DVT prophylaxis: Enoxaparin Diet: Cardiac Goals of care discussed with the patient for more than 27 minutes: Full code status Case discussed with Dr. Abreu , patient and RN Plan discussed with: Patient, Other (RN) My Orders Orders - RIVAS BUCKLEY RESIDENT Procedure Category Date Status Time Ketorolac Injection PHA 02/25/25 Logged (Toradol Injection) 16:15 Date of Service: Feb 25, 2025 Billing Provider: DONAVON ABREU MD Common Visit Codes: [id number] INP/OBS CARE (HIGH) Secondary Visit Codes: [id number] CARE PLAN 30 MINUTES RIVAS BUCKLEY RESIDENT Feb 25, 2025 16:07 DONAVON ABREU MD Feb 26, 2025 21:47
[2025-02-25] MEDS ORDERED: ONDANSETRON HCL 4 MG/2 ML VIAL IV PRN (16:15)
[2025-02-25] MEDS ORDERED: HYDROcodone-ACET 5/325MG TAB PO PRN (16:15)
--- NOTE | 2025-02-25 16:49 | DVH ---
EXAM: XY L KNEE 2V XRAY INDICATION: Severe left knee pain TECHNIQUE: 2 views of the right knee COMPARISON: XY L HIP COMPLETE XRAY on DOS: 07/27/24 FINDINGS: No radiographic evidence of an acute osseous abnormality. There is no acute fracture, osseous malalig nment, or aggressive focal osseous lesion. Severe lateral weight-bearing compartment joint space loss . No joint effusion. Subsequent likely genu valgus. IMPRESSION: 1. Severe lateral weight-bearing compartment joint space loss.
[2025-02-25] MEDS: SODIUM CHLORIDE 0.9% 1,000 ML IV SCH (17:00)
[2025-02-25 17:47] VITALS: BP 136/94; PULSE 57; TEMP 97.6; O2SAT 95
[2025-02-25 18:02] VITALS: BP 136/94; PULSE 57; RESP 20; TEMP 97.6; O2SAT 95
[2025-02-25] MEDS: KETOROLAC TROMETH 30 MG/ML 1ML VIAL IV ONE (18:13)
[2025-02-25 20:00] VITALS: PULSE 66; RESP 18; O2SAT 95
[2025-02-25 20:29] LABS: Albumin 3.4 g/dL (3.2-4.8); Alkaline Phosphatase 106 U/L (46-116); Anion Gap 11 (5-15); BUN/Creatinine Ratio 23.4 (10.0-20.0); Bilirubin, Total 0.5 mg/dL (0.2-1.0); Blood Urea Nitrogen 22 mg/dL (9-23); Calcium 9.3 mg/dL (8.7-10.4); Carbon Dioxide 23 mmol/L (20-31); Potassium 4.1 mmol/L (3.5-5.1); Sodium 141 mmol/L (136-145); Total Protein 6.7 g/dL (5.7-8.2)
[2025-02-25 20:33] LABS: Alanine Aminotransferase 63 U/L (7-40); Chloride 107 mmol/L (98-107); Glucose 259 mg/dL (74-106)
[2025-02-25 21:00] VITALS: BP 154/83; PULSE 66; RESP 18; TEMP 97.6; O2SAT 95
[2025-02-25] MEDS: SODIUM CHLOR 0.9% PF (SALINE LOCK) 10ML VIAL/SYR IV SCH (22:00)
[2025-02-25] MEDS ORDERED: DEXTROSE (50%) 50ML SYRG IV PRN (23:15)
[2025-02-25 23:30] VITALS: BP 154/83; PULSE 68; RESP 18; TEMP 97.6; O2SAT 96
[2025-02-25] MEDS ORDERED: IPRATROPIUM BROM 0.5 MG/2.5ML INH SOL NEB PRN (23:30)
[2025-02-25] MEDS ORDERED: ALBUTEROL SULF 2.5 MG/0.5ML(0.5%) NEB SOLN NEB PRN (23:30)
[2025-02-26] VITALS (11 sets, daily range): BP systolic 128–210; BP diastolic 74–182; PULSE 61–76; RESP 14–19; TEMP 97.5–98.7; O2SAT 94–97
--- NOTE | 2025-02-26 00:38 | DVH ---
Carotid Duplex Clinical History: Confusion Comparison: None Technique: Duplex Doppler evaluation of the extracranial carotid and vertebral arteries including color Doppler and spectral/pulsed waveform analysis was performed. Findings: RIGHT SIDE: The peak systolic velocities are 50 cm/s in the CCA, 145 cm/s in the ICA. The ICA/CCA ratio is 2.9. The external carotid artery is patent with peak systolic velocity of 54 cm/s proximally. Calcified plaque within the carotid bulb and tortuous internal carotid artery. There is appropriate antegrade flow in the right vertebral artery. LEFT SIDE: The peak systolic velocities are 46 cm/s in the CCA, 83 cm/s in the ICA. The ICA/CCA ratio is 1.8. The external carotid artery is patent with peak systolic velocity of 50 cm/s proximally. Calcified plaque within the carotid bulb. There is appropriate antegrade flow in the left vertebral artery. IMPRESSION: 1. No hemodynamically significant stenosis noted in the right carotid system. 2. No hemodynamically significant stenosis noted in the left carotid system. 3. Calcified atheromatous plaque within the bilateral carotid bulbs in tortuous right internal caroti d artery. Reference: Radiology 2003; 229:340-346 Normal ICA PSV is <125 cm/sec and no plaque or intimal thickening is visible sonographically additional criteria include ICA/CCA PSV ratio <2.0 and ICA EDV <40 cm/sec <50% ICA stenosis ICA PSV is <125 cm/sec and plaque or intimal thickening is visible sonographically additional criteria include ICA/CCA PSV ratio <2.0 and ICA EDV <40 cm/sec 50-69% ICA stenosis ICA PSV is 125-230 cm/sec and plaque is visible sonographically additional criteria include ICA/CCA PSV ratio of 2.0-4.0 and ICA EDV of 40-100 cm/sec 70% ICA stenosis but less than near occlusion ICA PSV is >230 cm/sec and visible plaque and luminal narrowing are seen at gannon-scale and color Dopp ler ultrasound (the higher the Doppler parameters lie above the threshold of 230 cm/sec, the greater the likelihood of severe disease) additional criteria include ICA/CCA PSV ratio >4 and ICA EDV >100 cm/sec
[2025-02-26] MEDS: ENALAPRILAT 1.25 MG/ML-1ML VIAL IV ONE (03:27)
[2025-02-26] MEDS: GABAPENTIN 300 MG CAP PO SCH (05:26)
[2025-02-26] MEDS: hydrALAZINE HCL 20 MG/ML VL IV ONE (05:26)
[2025-02-26] MEDS: InsuLIN REG 1unit/0.01ml Soln (100units/ml) SC SCH (06:20)
[2025-02-26] MEDS: ACCU-CHEK COMFORT CURVE STRIP VI SCH (06:21)
[2025-02-26 06:38] LABS: Hematocrit 40.8 % (36.0-46.0); Hemoglobin 13.9 g/dL (12.2-16.2); Mean Corpuscular Hemoglobin 32.4 pg (28.0-32.0); Mean Corpuscular Volume 94.8 fL (80.0-100.0); Nucleated Red Blood Cells % 0.2 %
[2025-02-26 07:06] LABS: Alanine Aminotransferase 61 U/L (7-40); Albumin 3.2 g/dL (3.2-4.8); Alkaline Phosphatase 89 U/L (46-116); Anion Gap 10 (5-15); BUN/Creatinine Ratio 17.6 (10.0-20.0); Bilirubin, Total 0.4 mg/dL (0.2-1.0); Blood Urea Nitrogen 16 mg/dL (9-23); Calcium 9.1 mg/dL (8.7-10.4); Carbon Dioxide 25 mmol/L (20-31); Chloride 106 mmol/L (98-107); Glucose 170 mg/dL (74-106); Potassium 4.1 mmol/L (3.5-5.1); Sodium 141 mmol/L (136-145); Total Protein 6.3 g/dL (5.7-8.2)
--- NOTE | 2025-02-26 09:21 | DVH ---
AP portable chest CLINICAL INDICATION: AMS Comparison: 2 [id number] FINDINGS: Heart size is enlarged in the aorta is tortuous. No infiltrates or effusions. IMPRESSION: 1. No acute cardiopulmonary pathology.
[2025-02-26] MEDS: CITALOPRAM HYDROBR 20 MG TAB PO SCH (09:48)
[2025-02-26] MEDS: CARVEDILOL 3.125 MG TAB PO SCH (09:48)
[2025-02-26] MEDS: ASPirin-EC 81 mg tab PO SCH (09:48)
[2025-02-26] MEDS: ENOXAPARIN SOD 30 MG/0.3 ML SYRINGE SC SCH (09:49)
[2025-02-26] MEDS: LISINOPRIL 20 MG TAB PO SCH (09:49)
[2025-02-26] MEDS ORDERED: ALBUTEROL SULF HFA 90MCG INH 200DOSE IN SCH (10:00)
[2025-02-26] MEDS: CHOLECALCIFEROL (VITD3) 1,000UNIT=25mCg TAB PO SCH (10:02)
[2025-02-26] MEDS: KETOROLAC TROMETH 30 MG/ML 1ML VIAL IV ONE (14:16)
--- NOTE | 2025-02-26 16:38 | DVHPNRES ---
Progress Note Date Seen: Feb 26, 2025 Resident Creating Document: RIVAS BUCKLEY RESIDENT Medical Necessity Reason Pt with a Central, PICC or Fol: No Subjective Review of Systems Melissa Roper is a 69-year-old female with a past medical history of type 2 diabetes mellitus, hypertension, breast cancer status post bilateral mastectomy who presented to the emergency department with altered mental status. However during my clinical evaluation, the patient was alert and oriented to person, place and time. She reports experiencing severe left knee pain for an unspecified duration, rated 10/10 in intensity which has compelled her to use a wheelchair for mobility. States that her orthopedic physician has recommended surgical intervention. She denies any redness, swelling or warmth over the joint. She reports no fever, chills, chest pain, shortness of breath, or other systemic symptoms. No recent falls or trauma were reported. Past medical history: type 2 diabetes mellitus, hypertension Past surgical history: Hysterectomy, bilateral mastectomy due to breast cancer Smokin pack years. Quit at the age of 42. Alcohol: Occasionally Drugs: Used in the past PCP: Dr. Sebas Holliday Code status: Full code Patient was seen and examined at bedside today. Overnight events were reviewed. The patient reports having left-sided knee pain. Also reports having urinary incontinence. Denies chest pain, shortness of breath, fever, abdominal pain or any other complaints today. Objective vital signs Vital Sign Date Time Temp Pulse Resp B/P (MAP) Pulse Ox O2 Delivery O2 Flow Rate FiO2 02/26/25 13:45 95 Room Air 0.0 02/26/25 13:45 21 02/26/25 12:58 97.8 68 16 161/105 (123) 97.8 Total Intake and Output 02/25/25 02/25/25 02/26/25 15:00 23:00 07:00 Intake Total 950 ml Balance 950 ml medications Current Medications Medications Dose Ordered Sig/Alberto Route Start Time Stop Time Status Last Admin Dose Admin Sodium Chloride 10 ml Q8HR IV 02/25/25 22:00 02/26/25 14:15 10 ML Acetaminophen/ Hydrocodone Bitart 1 tab Q4HP PRN PO 02/25/25 16:15 Hold Ondansetron HCl 4 mg Q4HP PRN IV 02/25/25 16:15 Enoxaparin Sodium 30 mg DAILY SC 02/26/25 10:00 02/26/25 09:49 30 MG Diagnostic Test (Pha) 1 strip ACHS 02/26/25 07:00 02/26/25 12:03 1 STRIP Insulin Human Regular ACHS SC 02/26/25 07:00 02/26/25 12:04 3 UNITS Dextrose 50 ml UD PRN IV 02/25/25 23:15 Aspirin 81 mg DAILY PO 02/26/25 10:00 02/26/25 09:48 81 MG Carvedilol 3.125 mg BID PO 02/26/25 10:00 02/26/25 09:48 3.125 MG Prazosin HCl 1 mg QPM PO 02/26/25 18:00 Cholecalciferol 2,000 unit DAILY PO 02/26/25 10:00 02/26/25 10:02 2,000 UNIT Citalopram Hydrobromide 40 mg DAILY PO 02/26/25 10:00 02/26/25 09:48 40 MG Gabapentin 600 mg TID PO 02/26/25 06:00 02/26/25 14:15 600 MG Quetiapine Fumarate 200 mg QPM PO 02/26/25 18:00 Albuterol 2.5 mg Q6HPRN PRN NEB 02/25/25 23:30 Ipratropium [place] 0.5 mg Q6HPRN PRN NEB 02/25/25 23:30 Lisinopril 40 mg BID PO 02/26/25 10:00 02/26/25 09:49 40 MG Examination Pt is lying on bed General Appearance: Alert, Oriented X3, Cooperative, Mild distress HEENT: Atraumatic, Mucous membranes moist/pink Respiratory: Clear to auscultation, Normal air movement, No added sounds Cardiovascular: Regular rate, Normal S1, Normal S2, No murmurs Abdominal/ : Active bowel sounds, Soft, no distention, no tenderness Extremities: No edema, Normal pulses, severe left knee tenderness, no warmth or redness Skin: No Significant rash, except past surgical scars Neuro: Normal speech, sensorimotor deficits none Psych/Mental Status: Mental status NL, Mood NL 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 b.i.d. Pain management with IV Toradol EKG: No ischemic changes, troponin 3 times negative Outpatient follow-up with PCP and pain management. Diabetes mellitus Mild sliding scale COPD, not on exacerbation Albuterol inhaler p.r.n. Urinary incontinence Continue further evaluation Psychiatric disorders Quetiapine Citalopram Prazosin GI prophylaxis: Pantoprazole DVT prophylaxis: Enoxaparin Diet: Cardiac . Discussed with Dr. Morrison, patient and RN. Goals of care discussed with the patient for more than 27 minutes: Full code status Plan discussed with: Patient, Other (RN) My Orders My Orders Orders - RIVAS BUCKLEY RESIDENT Procedure Category Date Status Time Drug Screen LAB 02/25/25 Logged 19:22 Vitamin B12 LAB 02/25/25 In Process 19:22 Carotid Duplx W Color US 02/25/25 Resulted DOP 20:39 Electrocardigram EKG 02/25/25 Logged 20:39 Electrocardigram EKG 02/25/25 Logged 21:39 Chest Portable XY 02/26/25 Resulted 08:39 Lisinopril Tablet PHA 02/26/25 In Process (Zestril Tablet) 10:00 Date of Service: Feb 26, 2025 Billing Provider: VIVIANA MORRISON MD Common Visit Codes: [id number] INP/OBS CARE(HIGH) Secondary Visit Codes: [id number] CARE PLAN 30 MINUTES RIVAS BUCKLEY Feb 26, 2025 16:38 VIVIANA MORRISON MD Mar 07, 2025 20:00
[2025-02-26] MEDS: PRAZOSIN HCL 1 MG CAP PO SCH (17:41)
[2025-02-27] VITALS (10 sets, daily range): BP systolic 117–162; BP diastolic 65–102; PULSE 61–80; RESP 16–20; TEMP 97.4–98.6; O2SAT 94–97
[2025-02-27 06:25] LABS: Hematocrit 39.8 % (36.0-46.0); Hemoglobin 13.4 g/dL (12.2-16.2); Mean Corpuscular Hemoglobin 31.8 pg (28.0-32.0); Mean Corpuscular Volume 94.7 fL (80.0-100.0); Nucleated Red Blood Cells % 0.2 %
[2025-02-27 06:41] LABS: Chloride 106 mmol/L (98-107); Potassium 4.1 mmol/L (3.5-5.1); Sodium 140 mmol/L (136-145)
[2025-02-27 06:42] LABS: Anion Gap 8 (5-15); Carbon Dioxide 26 mmol/L (20-31)
[2025-02-27 06:43] LABS: Calcium 9.2 mg/dL (8.7-10.4)
[2025-02-27 06:48] LABS: BUN/Creatinine Ratio 18.4 (10.0-20.0); Blood Urea Nitrogen 18 mg/dL (9-23)
[2025-02-27 07:00] LABS: Glucose 128 mg/dL (74-106)
[2025-02-27] MEDS ORDERED: HYDROcodone-ACET 10/325MG TAB PO ONE (11:15)
[2025-02-27] MEDS: LACTULOSE 20Gm/30ML SOLN PO ONE (12:21)
[2025-02-27] MEDS: LACTULOSE 20Gm/30ML SOLN ONE (12:21)
[2025-02-27] MEDS: PRAZOSIN HCL 1 MG CAP PO SCH (12:22)
[2025-02-27] MEDS: ACETAMINOPHEN 325 MG TAB PO PRN (14:16)
[2025-02-27] MEDS: ACETAMINOPHEN 325 MG TAB PO ONE ×2 (14:17→21:25)
--- NOTE | 2025-02-27 15:06 | DVHPNRES ---
Progress Note Date Seen: Feb 27, 2025 Resident Creating Document: GIN ARRIAGA RESIDENT Medical Necessity Reason Pt with a Central, PICC or Fol: No Subjective Review of Systems Melissa Roper is a 69-year-old female with a past medical history of type 2 diabetes mellitus, hypertension, breast cancer status post bilateral mastectomy who presented to the emergency department with altered mental status. However during my clinical evaluation, the patient was alert and oriented to person, place and time. She reports experiencing severe left knee pain for an unspecified duration, rated 10/10 in intensity which has compelled her to use a wheelchair for mobility. States that her orthopedic physician has recommended surgical intervention. She denies any redness, swelling or warmth over the joint. She reports no fever, chills, chest pain, shortness of breath, or other systemic symptoms. No recent falls or trauma were reported. Past medical history: type 2 diabetes mellitus, hypertension Past surgical history: Hysterectomy, bilateral mastectomy due to breast cancer Smokin pack years. Quit at the age of 42. Alcohol: Occasionally Drugs: Used in the past PCP: Dr. Sebas Holliday Code status: Full code Patient seen and evaluated in bedside today. Patient complained right hip pain which is chronic and history of right hip replacement. Patient blood pressure near upper limit normal. Patient denies any SOB, chest pain, headache, nausea, abdominal pain or dysuria. No acute event overnight, called NOK (KAVITA ZAMBRANO) but unable to reach. Objective vital signs Vital Sign Date Time Temp Pulse Resp B/P (MAP) Pulse Ox O2 Delivery O2 Flow Rate FiO2 02/27/25 13:00 98.6 76 18 137/65 (89) 94 98.6 02/27/25 09:11 Room Air* 0 21 Total Intake and Output 02/26/25 02/26/25 02/27/25 15:00 23:00 07:00 Intake Total 100 ml 350 ml 100 ml Balance 100 ml 350 ml 100 ml medications Current Medications Medications Dose Ordered Sig/Alberto Route Start Time Stop Time Status Last Admin Dose Admin Sodium Chloride 10 ml Q8HR IV 02/25/25 22:00 02/27/25 14:16 10 ML Acetaminophen/ Hydrocodone Bitart 1 tab Q4HP PRN PO 02/25/25 16:15 Hold Ondansetron HCl 4 mg Q4HP PRN IV 02/25/25 16:15 Enoxaparin Sodium 30 mg DAILY SC 02/26/25 10:00 02/27/25 09:54 30 MG Diagnostic Test (Pha) 1 strip ACHS 02/26/25 07:00 02/27/25 12:23 1 STRIP Insulin Human Regular ACHS SC 02/26/25 07:00 02/27/25 12:43 3 UNITS Dextrose 50 ml UD PRN IV 02/25/25 23:15 Aspirin 81 mg DAILY PO 02/26/25 10:00 02/27/25 09:54 81 MG Carvedilol 3.125 mg BID PO 02/26/25 10:00 02/27/25 09:57 3.125 MG Cholecalciferol 2,000 unit DAILY PO 02/26/25 10:00 02/27/25 09:54 2,000 UNIT Citalopram Hydrobromide 40 mg DAILY PO 02/26/25 10:00 02/27/25 09:55 40 MG Gabapentin 600 mg TID PO 02/26/25 06:00 02/27/25 14:16 600 MG Quetiapine Fumarate 200 mg QPM PO 02/26/25 18:00 02/26/25 17:41 200 MG Albuterol 2.5 mg Q6HPRN PRN NEB 02/25/25 23:30 Ipratropium [place] 0.5 mg Q6HPRN PRN NEB 02/25/25 23:30 Lisinopril 40 mg BID PO 02/26/25 10:00 02/27/25 09:57 40 MG Prazosin HCl 1 mg Q12HR PO 02/27/25 11:15 02/27/25 12:22 1 MG Acetaminophen 650 mg Q6HP PRN PO 02/27/25 11:45 02/27/25 14:16 650 MG Examination Pt is lying on bed General Appearance: Alert, Oriented X3, Cooperative, Mild distress HEENT: Atraumatic, Mucous membranes moist/pink Respiratory: Clear to auscultation, Normal air movement, No added sounds Cardiovascular: Regular rate, Normal S1, Normal S2, No murmurs Abdominal/ : Active bowel sounds, Soft, no distention, no tenderness Extremities: No edema, Normal pulses, left knee tender, no warmth or redness Skin: No Significant rash, except past surgical scars Neuro: Normal speech, sensorimotor deficits none Psych/Mental Status: Mental status NL, Mood NL 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 on 07/30/2024 EKG: No ischemic changes, troponin 3 times negative S/P IV hydralazine ,IV enalaprilat, IV labetalol Continue lisinopril 40 mg carvedilol 3.125 mg p.o. Started prazosin 1 mg p.o. b.i.d. instead of q.d. Pain management Tylenol Outpatient follow-up with PCP and pain management. Continue home medication aspirin 81 mg daily Monitor blood pressure Type 2 Diabetes mellitus with hyperglycemia Hemoglobin A1c 8.0 Mild sliding scale COPD, not on exacerbation Ipratropium nebulization Albuterol inhaler p.r.n. Vitamin-D deficiency Continue vitamin-D daily Urinary incontinence Outpatient follow-up Anxiety/depression Quetiapine Citalopram Prazosin Chronic right hip pain with history of right hip replacement Bilateral knee joint pain Osteoarthritis Peripheral neuropathy Gabapentin Acetaminophen Bilateral breast cancer status post bilateral mastectomy GI prophylaxis: Pantoprazole DVT prophylaxis: Enoxaparin Diet: Cardiac Discussed with Dr. Morrison, patient and RN. Goals of care discussed with the patient for more than 19minutes: Full code status Plan discussed with: Patient, Other (Nurse) My Orders My Orders Orders - GIN ARRIAGA Procedure Category Date Status Time Prazosin Hcl Capsule PHA 02/27/25 In Process (Minipres Capsule) 11:15 Acetaminophen Tablet PHA 02/27/25 In Process (Tylenol Tablet) 11:45 Date of Service: Feb 27, 2025 Billing Provider: VIVIANA MORRISON MD Common Visit Codes: [id number] INP/OBS CARE(HIGH) GIN ARRIAGA Feb 27, 2025 15:06 VIVAINA MORRISON MD Mar 07, 2025 20:01
[2025-02-27] MEDS: PRAZOSIN HCL 1 MG CAP ONE (21:26)
[2025-02-28] VITALS (8 sets, daily range): BP systolic 146–200; BP diastolic 80–118; PULSE 63–74; RESP 16–20; TEMP 97.6–98.1; O2SAT 94–97
--- NOTE | 2025-02-28 07:43 | ECG ---
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
--- NOTE | 2025-02-28 08:05 | ECG ---
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
[2025-02-28] MEDS ORDERED: PRAZOSIN HCL 1 MG CAP PO ONE (08:30)
[2025-02-28] MEDS ORDERED: CITALOPRAM HYDROBR 20 MG TAB PO ONE (08:30)
[2025-02-28] MEDS: ACETAMINOPHEN 325 MG TAB PO ONE (08:50)
[2025-02-28] MEDS: PRAZOSIN HCL 1 MG CAP PO SCH (09:17)
[2025-02-28] MEDS ORDERED: CITALOPRAM HYDROBR 20 MG TAB PO SCH (10:00)
[2025-02-28] MEDS ORDERED: CARVEDILOL 3.125 MG TAB PO ONE (11:00)
[2025-02-28 11:09] LABS: Hematocrit 42.2 % (36.0-46.0); Hemoglobin 14.1 g/dL (12.2-16.2); Mean Corpuscular Hemoglobin 32.2 pg (28.0-32.0); Mean Corpuscular Volume 96.1 fL (80.0-100.0); Nucleated Red Blood Cells % 0.1 %
[2025-02-28 11:27] LABS: Anion Gap 10 (5-15); Carbon Dioxide 27 mmol/L (20-31); Chloride 105 mmol/L (98-107); Potassium 4.0 mmol/L (3.5-5.1); Sodium 142 mmol/L (136-145)
[2025-02-28 11:29] LABS: Calcium 9.2 mg/dL (8.7-10.4)
[2025-02-28 11:33] LABS: BUN/Creatinine Ratio 14.0 (10.0-20.0); Blood Urea Nitrogen 13 mg/dL (9-23)
[2025-02-28 11:34] LABS: Glucose 181 mg/dL (74-106)
[2025-02-28] MEDS: CARVEDILOL 3.125 MG TAB ONE (12:32)
[2025-02-28] MEDS: CARVEDILOL 3.125 MG TAB PO ONE (12:33)
[2025-02-28] MEDS: CARVEDILOL 3.125 MG TAB PO SCH (21:43)
[2025-02-28] MEDS: ALPRAZolam 0.5 MG TAB PO SCH (21:52)
[2025-03-01 01:00] VITALS: BP 171/90; PULSE 65; RESP 16; TEMP 97.7; O2SAT 96
[2025-03-01] MEDS: hydrALAZINE HCL 20 MG/ML VL IV ONE (01:59)
[2025-03-01 05:00] VITALS: BP 135/76; PULSE 73; RESP 17; TEMP 97.9; O2SAT 95
[2025-03-01 06:09] LABS: Chloride 107 mmol/L (98-107); Potassium 4.0 mmol/L (3.5-5.1); Sodium 142 mmol/L (136-145)
[2025-03-01 06:11] LABS: Anion Gap 8 (5-15); Calcium 8.9 mg/dL (8.7-10.4); Carbon Dioxide 27 mmol/L (20-31)
[2025-03-01 06:15] LABS: Hematocrit 40.4 % (36.0-46.0); Hemoglobin 13.6 g/dL (12.2-16.2); Mean Corpuscular Hemoglobin 32.3 pg (28.0-32.0); Mean Corpuscular Volume 95.9 fL (80.0-100.0); Nucleated Red Blood Cells % 0.0 %
[2025-03-01 06:16] LABS: BUN/Creatinine Ratio 16.7 (10.0-20.0); Blood Urea Nitrogen 15 mg/dL (9-23)
[2025-03-01 06:22] LABS: Glucose 156 mg/dL (74-106)
[2025-03-01 07:45] VITALS: PULSE 69; RESP 17; O2SAT 94
--- NOTE | 2025-03-01 07:59 | ECG ---
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
[2025-03-01 09:00] VITALS: BP 153/87; PULSE 69; RESP 17; TEMP 98.4; O2SAT 94
[2025-03-01] MEDS: ENOXAPARIN SOD 40 MG/0.4 ML SYRINGE SC SCH (10:00)
[2025-03-01] MEDS ORDERED: LISI20TA56 PO (10:19)
[2025-03-01] MEDS ORDERED: GABA-1250 PO (10:19)
[2025-03-01] MEDS ORDERED: CARV-214 PO (10:19)
[2025-03-01] MEDS ORDERED: AML5T PO (10:19)
[2025-03-01] MEDS ORDERED: QUET100T47 PO (10:19)
[2025-03-01] MEDS ORDERED: PRAZ1CAP2 PO (10:19)
[2025-03-01 11:18] VITALS: BP 153/87; PULSE 69
--- NOTE | 2025-03-02 13:09 | DVHDSRES ---
Discharge Summary Date of Admission Resident Creating Document: RIVAS BUCKLEY Feb 25, 2025 at 16:07 Date of Discharge: Mar 01, 2025 Admitting Diagnosis Hypertensive encephalopathy Labs/Diagnostic Data: Laboratory Results Test 03/01/25 11:51 03/01/25 04:45 02/28/25 13:41 02/26/25 04:31 POC Glucose 204 mg/dl (70-106) White Blood Count 5.8 10^3/uL (4.4-10.8) Red Blood Count 4.21 10^6/uL (4.0-5.20) Hemoglobin 13.6 g/dL (12.2-16.2) Hematocrit 40.4 % (36.0-46.0) Mean Corpuscular Volume 95.9 fL (80.0-100.0) Mean Corpuscular Hemoglobin 32.3 pg (28.0-32.0) Mean Corpuscular Hemoglobin Concent 33.7 g/dL (32.0-36.0) Red Cell Distribution Width 12.8 % (11.8-14.3) Platelet Count 214 10^3/uL (140-450) Mean Platelet Volume 8.5 fL (6.9-10.8) Neutrophils (%) (Auto) 42.5 % (37.0-80.0) Lymphocytes (%) (Auto) 42.0 % (10.0-50.0) Monocytes (%) (Auto) 11.9 % (0.0-12.0) Eosinophils (%) (Auto) 3.2 % (0.0-7.0) Basophils (%) (Auto) 0.4 % (0.0-2.0) Neutrophils # (Auto) 2.5 10 ^3/uL (1.6-8.6) Lymphocytes # (Auto) 2.4 10 ^3/uL (0.4-5.4) Monocytes # (Auto) 0.7 10 ^3/uL (0-1.3) Eosinophils # (Auto) 0.2 10 ^3/uL (0-0.8) Basophils # (Auto) 0 10 ^3/uL (0-0.2) Nucleated Red Blood Cells 0.0 % Sodium Level 142 mmol/L (136-145) Potassium Level 4.0 mmol/L (3.5-5.1) Chloride Level 107 mmol/L (98-107) Carbon Dioxide Level 27 mmol/L (20-31) Anion Gap 8 (5-15) Blood Urea Nitrogen 15 mg/dL (9-23) Creatinine 0.90 mg/dL (0.550-1.02) Glomerular Filtration Rate Calc 69 mL/min (>90) BUN/Creatinine Ratio 16.7 (10.0-20.0) Serum Glucose 156 mg/dL (74-106) Calcium Level 8.9 mg/dL (8.7-10.4) Troponin I High Sensitivity 5 ng/L (</=34) Total Bilirubin 0.4 mg/dL (0.2-1.0) Aspartate Amino Transferase (AST) 55 U/L (13-40) Alanine Aminotransferase (ALT) 61 U/L (7-40) Alkaline Phosphatase 89 U/L (46-116) Total Protein 6.3 g/dL (5.7-8.2) Albumin 3.2 g/dL (3.2-4.8) Test 02/25/25 13:56 02/25/25 11:06 Magnesium Level 1.8 mg/dL (1.6-2.6) Vitamin B12 Level 918 pg/mL (211-911) Vitamin D 25-Hydroxy 43.3 ng/mL (30.0-100) Thyroid Stimulating Hormone (TSH) 1.27 uIU/mL (0.55-4.78) Hemoglobin A1c 8.0 % A1C (<5.7) Plasma/Serum Blood Alcohol < 3.0 mg/dL (<10) Other Laboratory Tests 03/01/25 04:45 Brief Hx & Hospital Course: Melissa Carranza is a 69-year-old female with a past medical history of type 2 diabetes mellitus, chronic HFpEF, NYHA class 2, hypertension, breast cancer status post bilateral mastectomy who presented to the emergency department with altered mental status. However during my clinical evaluation, the patient was alert and oriented to person, place and time. She reports experiencing severe left knee pain for an unspecified duration, rated 10/10 in intensity which has compelled her to use a wheelchair for mobility. States that her orthopedic physician has recommended surgical intervention. She denies any redness, swelling or warmth over the joint. She reports no fever, chills, chest pain, shortness of breath, or other systemic symptoms. No recent falls or trauma were reported. Past medical history: type 2 diabetes mellitus, hypertension Past surgical history: Hysterectomy, bilateral mastectomy due to breast cancer Smokin pack years. Quit at the age of 42. Alcohol: Occasionally Drugs: Used in the past PCP: Dr. Sebas Holliday Code status: Full code During hospitalization, hypertensive encephalopathy was managed with IV hydralazine, enalaprilat and labetalol. ACS was ruled out with 3- troponins and no ischemic changes on the EKG. Her antihypertensive regimen was prazosin 1 mg p.o. b.i.d., in addition to continuing lisinopril 40 mg and carvedilol 3.125 mg initially then increased to 6.25. Pain was managed with IV Toradol, which improved the blood pressure. Her diabetes was monitored with a mild sliding scale, hemoglobin A1c was 8, continued her home medications including aspirin 81 mg daily, gabapentin for neuropathy, quetiapine and citalopram for mood stabilization, pantoprazole for GI prophylaxis and enoxaparin for DVT prophylaxis. COPD management include ipratropium nebulization and albuterol inhaler as needed. She was maintained on a cardiac diet. At discharge, she was stable and cooperative, with outpatient follow up arranged with her primary care physician and pain management. Blood pressure monitoring and continued medication adherence were emphasized. Pt is lying on bed General Appearance: Alert, Oriented X3, Cooperative, Mild distress HEENT: Atraumatic, Mucous membranes moist/pink Respiratory: Clear to auscultation, Normal air movement, No added sounds Cardiovascular: Regular rate, Normal S1, Normal S2, No murmurs Abdominal/ : Active bowel sounds, Soft, no distention, no tenderness Extremities: No edema, Normal pulses, left knee tender, no warmth or redness Skin: No Significant rash, except past surgical scars Neuro: Normal speech, sensorimotor deficits none Psych/Mental Status: Mental status NL, Mood NL Nurse was there as clerical support during examination Case discussed with the Dr. Abreu. Operations or Procedures PATIENT: MELISSA CARRANZA ACCT: [id number] UNIT: [id number] : 1955 LOC: ER ROOM / BED: / AGE / SEX: 69 / F ADM STATUS: REG ER SERVICE 1035 ORDERING PHYSICIAN: TRAVIS HAMILTON MD PROCEDURE(s): HWOCT - HEAD WITHOUT CONTRAST REASON: altered ORDER NUMBER(s): [id number], ACCESSION NUMBER(s): [id number] EXAM: CT HEAD WITHOUT CONTRAST INDICATION: Altered TECHNIQUE: CT of the head without intravenous contrast. Coronal and sagittal reformatted images are submitted. Radiation Dose : 1. Head: CT Dose: CTDI volume is 48.3 mGy. Dose-length product is 908.9 mGy*cm The dose indicators for CT are the volume Computed Tomography (CT) Dose Index (CTDIvol) and the Dose Length Product (DLP), and are measured in units of mGy and mGy-cm, respectively. These indicators are not patient dose, but values generated from the CT scanner acquisition factors. The report includes radiation exposure data for exposures received during this examination. All CT scans at this medical facility are performed using dose modulation techniques as appropriate to a performed exam including the following: Automated exposure control was utilized; adjustment of the MA and/or KV according to patient size; and use of iterative reconstruction technique. COMPARISON: None FINDINGS: There is no evidence of acute intracranial hemorrhage, extra-axial collection, mass effect, midline shift, herniation or hydrocephalus. There are periventricular and subcortical hypodensities, nonspecific, but likely reflecting sequelae of chronic microvascular ischemic changes. The ventricles, sulci and cisterns are age appropriate. The gannon-white differentiation is intact. The visualized paranasal sinuses and mastoid air cells are clear. No depressed calvarial fracture. The surrounding soft tissues are unremarkable. IMPRESSION: 1. No evidence of acute intracranial abnormality. ATED BY: WOODY DOTY MD DICTATED DATE/TIME: 02/25/25 114 SIGNED BY: WOODY DOTY MD SIGNED DATE/TIME: 02/25/25 114 CC: PATIENT: MELISSA CARRANZA ACCT: [id number] UNIT: [id number] : 1955 LOC: [facility] ROOM / BED: [facility] / A AGE / SEX: 69 / F ADM STATUS: ADM IN SERVICE 38 ORDERING PHYSICIAN: RIVAS BUCKLEY RESIDENT PROCEDURE(s): CARCL - CAROTID DUPLX W COLOR DOP REASON: Confusion ORDER NUMBER(s): [id number], ACCESSION NUMBER(s): [id number] Carotid Duplex Clinical History: Confusion Comparison: None Technique: Duplex Doppler evaluation of the extracranial carotid and vertebral arteries including color Doppler and spectral/pulsed waveform analysis was performed. Findings: RIGHT SIDE: The peak systolic velocities are 50 cm/s in the CCA, 145 cm/s in the ICA. The ICA/CCA ratio is 2.9. The external carotid artery is patent with peak systolic velocity of 54 cm/s proximally. Calcified plaque within the carotid bulb and tortuous internal carotid artery. There is appropriate antegrade flow in the right vertebral artery. LEFT SIDE: The peak systolic velocities are 46 cm/s in the CCA, 83 cm/s in the ICA. The ICA/CCA ratio is 1.8. The external carotid artery is patent with peak systolic velocity of 50 cm/s proximally. Calcified plaque within the carotid bulb. There is appropriate antegrade flow in the left vertebral artery. IMPRESSION: 1. No hemodynamically significant stenosis noted in the right carotid system. 2. No hemodynamically significant stenosis noted in the left carotid system. 3. Calcified atheromatous plaque within the bilateral carotid bulbs in tortuous right internal carotid artery. Reference: Radiology 2003; 229:340-346 Normal ICA PSV is <125 cm/sec and no plaque or intimal thickening is visible sonographically additional criteria include ICA/CCA PSV ratio <2.0 and ICA EDV <40 cm/sec <50% ICA stenosis ICA PSV is <125 cm/sec and plaque or intimal thickening is visible sonographically additional criteria include ICA/CCA PSV ratio <2.0 and ICA EDV <40 cm/sec 50-69% ICA stenosis ICA PSV is 125-230 cm/sec and plaque is visible sonographically additional criteria include ICA/CCA PSV ratio of 2.0-4.0 and ICA EDV of 40-100 cm/sec 70% ICA stenosis but less than near occlusion ICA PSV is >230 cm/sec and visible plaque and luminal narrowing are seen at gannon-scale and color Doppler ultrasound (the higher the Doppler parameters lie above the threshold of 230 cm/sec, the greater the likelihood of severe disease) additional criteria include ICA/CCA PSV ratio >4 and ICA EDV >100 cm/sec ENT: MELISSA CARRANZA ACCT: [id number] UNIT: [id number] : 1955 LOC: [facility] ROOM / BED: [id number] / A AGE / SEX: 69 / F ADM STATUS: ADM IN SERVICE 1611 ORDERING PHYSICIAN: RIVAS BUCKLEY PROCEDURE(s): LKNE2 - L KNEE 2V XRAY REASON: Severe left knee pain ORDER NUMBER(s): [id number], ACCESSION NUMBER(s): [id number] EXAM: XY L KNEE 2V XRAY INDICATION: Severe left knee pain TECHNIQUE: 2 views of the right knee COMPARISON: XY L HIP COMPLETE XRAY on DOS: 07/27/24 FINDINGS: No radiographic evidence of an acute osseous abnormality. There is no acute fracture, osseous malalignment, or aggressive focal osseous lesion. Severe lateral weight-bearing compartment joint space loss. No joint effusion. Subsequent likely genu valgus. IMPRESSION: 1. Severe lateral weight-bearing compartment joint space loss. ENT: MELISSA CARRANZA ACCT: [id number] UNIT: [id number] : 1955 LOC: [facility] ROOM / BED: [facility] / A AGE / SEX: 69 / F ADM STATUS: ADM IN SERVICE 0839 ORDERING PHYSICIAN: RIVAS BUCKLEY PROCEDURE(s): CXRP - CHEST PORTABLE REASON: AMS ORDER NUMBER(s): [id number], ACCESSION NUMBER(s): [id number] AP portable chest CLINICAL INDICATION: AMS Comparison: 1424 FINDINGS: Heart size is enlarged in the aorta is tortuous. No infiltrates or effusions. IMPRESSION: 1. No acute cardiopulmonary pathology. Condition at Discharge: Stable Final Diagnosis/Problems List Hypertensive encephalopathy ruled in Ruled out metabolic encephalopathy Chronic HFpEF, NYHA class II Ruled out ACS Essential hypertension Dyslipidemia Type 2 Diabetes mellitus with hyperglycemia COPD, not on exacerbation Vitamin-D deficiency Urinary incontinence Anxiety/depression Chronic right hip pain with history of right hip replacement Bilateral knee joint pain Osteoarthritis Peripheral neuropathy Bilateral breast cancer status post bilateral mastectomy Discharge Disposition: Home Discharge Instruct/Medications Diet: Consistent carbohydrate, Cardiac 2g Na,low cholest Activity: No Restrictions, As Tolerated Follow Up/Referral: follow up with PCP for pain management Medications: as per EMR Scheduled Albuterol Sulfate (Albuterol Sulfate), 1 NEB QIDPRN, (Reported) Alprazolam (Xanax Xr), 1 TAB PO TID, (Reported) Amlodipine Besylate (Norvasc Tablet), 1 TAB PO DAILY Aspirin (Aspir-81), 1 TAB PO DAILY, (Reported) Carvedilol (Coreg), 6.25 MG PO Q12HR Cholecalciferol (Vitamin D3), 1 TAB PO DAILY, (Reported) Diphenhydramine Hcl (Banophen), 25 MG PO BID, (Reported) Escitalopram Oxalate (Escitalopram Oxalate), 1 TAB PO DAILY, (Reported) Furosemide (Lasix), 1 TAB PO DAILY, (Reported) Gabapentin (Gabapentin), 600 MG PO TID Lisinopril (Zestril), 1 TAB PO BID, (Reported) Lisinopril (Lisinopril), 40 MG PO BID Oxycodone Hcl (OxyCONTIN ER Tablet), 1 TAB PO BID, (Reported) Potassium Chloride (Klor-Con Tablet), 8 MEQ PO DAILY, (Reported) Prazosin Hcl (Minipres), 5 CAP PO QPM, (Reported) Prazosin Hcl (Minipres), 1 MG PO Q12HR Quetiapine Fumerate (Quetiapine Fumarate), 200 MG PO QPM Rivaroxaban (Xarelto), 1 TAB PO DAILY Scheduled PRN Acetaminophen W/ Codeine (Tylenol W/Cod #3), 1 TAB PO QID PRN Carisoprodol (Soma), 1 TAB PO TIDP PRN for FOR MUSCLE SPASM, (Reported) Ipratropium [place] (Atrovent), 0.03 % NEB Q6H PRN Discontinued Medications Albuterol Sulfate (Ventolin Mdi), 90 MCG IN BID, (Reported) Carvedilol (Coreg), 1 TAB PO BID, (Reported) Cephalexin Monohydrate (Cephalexin), 1 CAP PO QID Gabapentin (Gabapentin), 1 TAB PO TID, (Reported) Quetiapine Fumerate (Seroquel), 200 MG PO QPM, (Reported) Discharge Statement: "Patient was advised to return to the ER or call 911 if any headaches, dizziness, shortness of breath, chest pain, abdominal pain, bleeding, fevers, or worsening of medical condition. Patient was counseled about treatment plan, medications, possible side effects, patientverbalized understanding. All questions were answered to the best of my ability. This discharge took greater then 30 minutes in planning, reviewing documentation, counseling the patient, and discussing with other team members." ASSESSMENT ASSESSMENT Assessment Date of Service: Mar 01, 2025 Billing Provider: DONAVON ABREU MD Common Visit Codes: 09874-XOB/OBS DISCH DAY >30min RIVAS BUCKLEY RESIDENT Mar 02, 2025 13:09 KIKI WALDEN RESIDENT Mar 06, 2025 18:12 DONAVON ABREU MD Mar 08, 2025 16:35
--- NOTE | 2025-03-02 13:29 | DVHPNRES ---
Progress Note Date Seen: Feb 28, 2025 Resident Creating Document: RIVAS BUCKLEY RESIDENT Medical Necessity Reason Pt with a Central, PICC or Fol: No Subjective Review of Systems Melissa Roper is a 69-year-old female with a past medical history of type 2 diabetes mellitus, hypertension, breast cancer status post bilateral mastectomy who presented to the emergency department with altered mental status. However during my clinical evaluation, the patient was alert and oriented to person, place and time. She reports experiencing severe left knee pain for an unspecified duration, rated 10/10 in intensity which has compelled her to use a wheelchair for mobility. States that her orthopedic physician has recommended surgical intervention. She denies any redness, swelling or warmth over the joint. She reports no fever, chills, chest pain, shortness of breath, or other systemic symptoms. No recent falls or trauma were reported. Past medical history: type 2 diabetes mellitus, hypertension Past surgical history: Hysterectomy, bilateral mastectomy due to breast cancer Smokin pack years. Quit at the age of 42. Alcohol: Occasionally Drugs: Used in the past PCP: Dr. Sebas Holliday Code status: Full code Patient seen and evaluated in bedside today. Currently has no new complaints, still presents left hip pain which is chronic. Patient will be kept overnight to control blood pressure Objective vital signs Vital Sign Date Time Temp Pulse Resp B/P (MAP) Pulse Ox O2 Delivery O2 Flow Rate FiO2 03/01/25 12:04 135/80 03/01/25 11:18 69 03/01/25 09:00 98.4 17 94 98.4 03/01/25 07:45 Room Air* 0 21 Total Intake and Output 03/01/25 03/01/25 03/02/25 15:00 23:00 07:00 Intake Total 320 ml Balance 320 ml Examination Pt is lying on bed General Appearance: Alert, Oriented X3, Cooperative, Mild distress HEENT: Atraumatic, Mucous membranes moist/pink Respiratory: Clear to auscultation, Normal air movement, No added sounds Cardiovascular: Regular rate, Normal S1, Normal S2, No murmurs Abdominal/ : Active bowel sounds, Soft, no distention, no tenderness Extremities: No edema, Normal pulses, left knee tender, no warmth or redness Skin: No Significant rash, except past surgical scars Neuro: Normal speech, sensorimotor deficits none Psych/Mental Status: Mental status NL, Mood NL Nurse was there as administrative support technician during examination laboratory and microbiology Laboratory Tests 03/01/25 04:45 Test 03/01/25 04:45 Range/Units Serum Glucose 156 H 74-106 mg/dL Problem List/Assessment/Plan Problem List/Assessment/Plan Hypertensive encephalopathy Chronic HFpEF, NYHA class II Ruled out ACS Essential hypertension Dyslipidemia Transthoracic echocardiogram reveals EF 65%. on 07/30/2024 EKG: No ischemic changes, troponin 3 times negative S/P IV hydralazine ,IV enalaprilat, IV labetalol Continue lisinopril 40 mg carvedilol 3.125 mg p.o. Started prazosin 1 mg p.o. b.i.d. instead of q.d. Pain management Tylenol Outpatient follow-up with PCP and pain management. Continue home medication aspirin 81 mg daily Monitor blood pressure Type 2 Diabetes mellitus with hyperglycemia Hemoglobin A1c 8.0 Mild sliding scale COPD, not on exacerbation Ipratropium nebulization Albuterol inhaler p.r.n. Vitamin-D deficiency Continue vitamin-D daily Urinary incontinence Outpatient follow-up Anxiety/depression Quetiapine Citalopram Prazosin Chronic right hip pain with history of right hip replacement Bilateral knee joint pain Osteoarthritis Peripheral neuropathy Gabapentin Acetaminophen Bilateral breast cancer status post bilateral mastectomy GI prophylaxis: Pantoprazole DVT prophylaxis: Enoxaparin Diet: Cardiac Discussed with Dr. Abreu, patient and RN. Goals of care discussed with the patient for more than 19minutes: Full code status Plan discussed with: Patient, Other (Nurses) Dietary Evaluation Review Comments: CCHO-60 Cardiac diet Oral supplementation glucerna BID Mdeication review Expected Outcomes/Goals: Controlled DM, Wt gain, normal BMs Date of Service: Feb 28, 2025 Billing Provider: DONAVON ABREU MD Common Visit Codes: 36435-[id number] INP/OBS CARE(HIGH) RIVAS BUCKLEY RESIDENT Mar 02, 2025 13:29 KIKI WALDEN RESIDENT Mar 06, 2025 17:51 DONAVON ABREU MD Mar 10, 2025 13:12
--- NOTE | 2025-03-06 17:59 | DVHPNRES ---
Progress Note Date Seen: Mar 01, 2025 Resident Creating Document: A Medical Necessity Reason Pt with a Central, PICC or Fol: No Objective laboratory and microbiology Laboratory Tests 03/01/25 04:45 Test 03/01/25 04:45 Range/Units Serum Glucose 156 H 74-106 mg/dL Problem List/Assessment/Plan Plan discussed with: Patient, Other (Nurses) Dietary Evaluation Review Comments: CCHO-60 Cardiac diet Oral supplementation glucerna BID Mdeication review Expected Outcomes/Goals: Controlled DM, Wt gain, normal BMs KIKI WALDEN RESIDENT Mar 06, 2025 17:59
== END 2025-03-01 16:45 | disposition hospice, home (50) | DRG 78 ==
LOC: EDBD 10:13 → EDUNIT# 10:13 → ER 10:13 → OVERFLOW 16:07 → WEST WING 17:43
PROVIDERS: ADMIT Student in an Organized Health Care Education/Training Program; ATTEND Student in an Organized Health Care Education/Training Program
DX: I67.4 Hypertensive encephalopathy (principal); I50.32 Chronic diastolic (congestive) heart failure; M17.12 Unilateral primary osteoarthritis, left knee; Z51.5 Encounter for palliative care; I11.0 Hypertensive heart disease with heart failure; E11.65 Type 2 diabetes mellitus with hyperglycemia; F41.9 Anxiety disorder, unspecified; J44.89 Other specified chronic obstructive pulmonary disease; F17.210 Nicotine dependence, cigarettes, uncomplicated; F99 Mental disorder, not otherwise specified; R32 Unspecified urinary incontinence; E78.5 Hyperlipidemia, unspecified; E55.9 Vitamin D deficiency, unspecified; G89.29 Other chronic pain; E11.42 Type 2 diabetes mellitus with diabetic polyneuropathy; I48.91 Unspecified atrial fibrillation; Z79.2 Long term (current) use of antibiotics; Z79.899 Other long term (current) drug therapy; Z79.82 Long term (current) use of aspirin; Z90.710 Acquired absence of both cervix and uterus; Z83.3 Family history of diabetes mellitus; Z85.9 Personal history of malignant neoplasm, unspecified; Z82.49 Family history of ischemic heart disease and other diseases of the circulatory system; Z90.13 Acquired absence of bilateral breasts and nipples; Z88.5 Allergy status to narcotic agent; I16.0 Hypertensive urgency
CPT/HCPCS: 36415; 70450; 71045; 73560; 80048; 80053; 80320; 82306; 82607; 82962; 83036; 83735; 84443; 84484; 85025; 93005; 93886; 96361; 96374; 99291; 99292; G0378; J1815; J1885

== ENCOUNTER 2025-04-26 21:16 | Emergency (ER) | payer OTHER, MEDICAID ==
[~2025-04-26] VITALS: Ht 160 cm; Wt 90.3 kg
[~2025-04-26 21:16] MED LIST changes: -ALBUAER3 IN; +AML5T PO; -CEPH500C PO; +GABA-1250 PO; -GABA-339 PO; +LISI20TA56 PO; +QUET100T47 PO; -QUET200T30 PO
--- NOTE | 2025-04-26 22:14 | DVH ---
COMPUTERIZED TOMOGRAPHY OF THE HEAD WITHOUT CONTRAST REASON FOR STUDY: BHT/fall COMPARISON: CT HEAD WITHOUT CONTRAST on DOS: 02/25/25 TECHNIQUE: Helical tomographic scans were obtained through the brain. 2-D coronal and sagittal reformatted images are provided. Radiation optimization: All CT scans at this facility use at least one of these dose optimization techniques: Automated exposure control mA and/or kV adjustment per patient size (includes targeted exams where dose is matched to clinical indication) or iterative reconstruction. RADIATION DOSE: CTDI: 61 mGy DLP: 977 mGy-cm FINDINGS: No suspicious intracranial hyperdensity to suggest acute blood. There is no mass effect nor midline shift. There is mild generalized volume loss with compensatory enlargement of the CSF spaces. There is no hydrocephalus. The suprasellar cistern is intact. There are scattered periventricular and deep white matter hypodensities that are most consistent with chronic microangiopathic changes. The calvarium is intact. The visualized paranasal sinuses are grossly clear. The right mastoid is grossly clear. There is trace fluid in the left mastoid. IMPRESSION: No acute intracranial abnormality. Mild generalized volume loss with chronic small vessel ischemic change. Trace fluid in the left mastoid. Correlate clinically for acute mastoiditis.
[2025-04-26 23:01] VITALS: BP 113/65; PULSE 83; RESP 18; TEMP 97.6; O2SAT 96
--- NOTE | 2025-04-26 23:10 | DVH ---
EXAM: XY L KNEE 4V XRAY REASON FOR EXAM: left knee pain after fall TECHNIQUE: AP, oblique, lateral, and sunrise views of the left knee are submitted for review. COMPARISON: XY L KNEE 2V XRAY on DOS: 02/25/25, L KNEE 3V XRAY on DOS: 03/18/21 FINDINGS: There is no acute fracture or dislocation. There is no significant knee effusion. There are joint bodies. There is moderate tricompartmental joint space narrowing with osteophyte formation. The soft tissues are grossly unremarkable. IMPRESSION: No radiographic evidence of acute fracture or dislocation. Moderate tricompartmental osteoarthritis.
--- NOTE | 2025-04-26 23:18 | ED.PDOC ---
History of Present Illness HPI Comments 69 Year-old female with past medical history of hypertension, severe arthritis, chronic pain, atrial fibrillation (on anticoagulation) presenting for evaluation after the patient slipped out of her wheelchair. Patient states that due to her severe arthritis she uses a wheelchair. She is trying to get out of her wheelchair when she slipped, fell as if she twisted her left knee, then hit her head. Had no preceding presyncopal symptoms. Was unable to get up off the floor so called 911. Chief Complaint: Fall Injury Time Seen by MD: 21:33 Primary Care Provider: TOM Allergies: Coded Allergies: Oxycodone (Verified Allergy, Severe, itching, 12/04/21) Hydromorphone (Verified Allergy, Unknown, 08/02/24) Morphine (Verified Allergy, Unknown, 09/12/19) Home Meds Active Scripts Amlodipine Besylate (NORVASC TABLET) 5 Mg Tb, 1 TAB PO DAILY for 30 Days, #30 TAB 5 Refills Prov:KIKI WALDEN [facility] 03/01/25 Quetiapine Fumerate (QUETIAPINE FUMARATE) 100 Mg Tab, 200 MG PO QPM for 30 Days, #60 TAB Prov:KIKI WALDEN [facility] 03/01/25 Prazosin Hcl (Minipres) 1 Mg Cp, 1 MG PO Q12HR for 30 Days, #60 CAP Prov:KIKI WALDEN [facility] 03/01/25 Lisinopril (Lisinopril) 20 Mg Tab, 40 MG PO BID for 30 Days, #120 TAB Prov:KIKI WALDEN [facility] 03/01/25 Gabapentin (Gabapentin) 300 Mg Cap, 600 MG PO TID for 30 Days, #90 CAP Prov:IRAMKIKI [facility] 03/01/25 Carvedilol (COREG) 3.125 Mg Tab, 6.25 MG PO Q12HR for 30 Days, #120 TAB Prov:KIKI WALDEN [facility] 03/01/25 Rivaroxaban (XARELTO) 10 Mg Tab, 1 TAB PO DAILY, #14 TAB Prov:SENG LAUREN MD 08/03/24 Acetaminophen W/ Codeine (Tylenol W/Cod #3) 1 Tab Tb, 1 TAB PO QID PRN, #40 TAB Prov:SENG LAUREN MD 08/03/24 Ipratropium [place] (Atrovent) 0.03 % Gretel, 0.03 % NEB Q6H PRN for 30 Days Prov:SCOT MCLEOD MD 05/21/15 Reported Medications Aspirin (Aspir-81) 81 Mg Tab, 1 TAB PO DAILY, #30 TAB 5 Refills 09/12/19 Diphenhydramine Hcl (Banophen) 25 Mg Cap, 25 MG PO BID for ALLERGY, CAP 09/12/19 Escitalopram Oxalate (ESCITALOPRAM OXALATE) 20 Mg Tab, 1 TAB PO DAILY for ANXIETY, #30 TAB 5 Refills 09/12/19 Prazosin Hcl (Minipres) 1 Mg Cp, 5 CAP PO QPM for BLOOD PRESSURE, #30 CAP 2 Refills 09/12/19 Oxycodone Hcl (OxyCONTIN ER Tablet) 10 Mg Tb, 1 TAB PO BID for PAIN, #60 TAB 09/12/19 Cholecalciferol (VITAMIN D3) 2,000 Unit Tab, 1 TAB PO DAILY, #30 TAB 5 Refills 02/09/16 Potassium Chloride (KLOR-CON TABLET) 8 Meq Tb, 8 MEQ PO DAILY 05/21/15 Albuterol Sulfate (Albuterol Sulfate) 0.083 % Neb, 1 NEB QIDPRN 05/08/12 Furosemide (Lasix) 40 Mg Tab, 1 TAB PO DAILY 01/26/12 Lisinopril (Zestril) 40 Mg Tab, 1 TAB PO BID 01/26/12 Alprazolam (Xanax Xr) 2 Mg Tab, 1 TAB PO TID 01/26/12 Carisoprodol (Soma) 350 Mg Tab, 1 TAB PO TIDP PRN for FOR MUSCLE SPASM 04/23/10 Mode of Arrival: EMS Past Medical History PAST MEDICAL HISTORY: AFIB, Anxiety, Arthritis, Asthma, Cancer, CHF, COPD, DM, HTN, Liver Surgical History: , Hysterectomy, Tonsillectomy CIVIL ENGINEER History: No Pertinent CIVIL ENGINEER History Family History Family History: Family hx of DM, Family hx of Cancer, Family hx of HTN Social History Smoker: Cigarettes Alcohol: Occasionally Drugs: Marijuana Lives In: Home Constitutional: denies: chills, diaphoresis, fatigue, fever, malaise, sweats, weakness, others EENTM: denies: blurred vision, double vision, ear bleeding, ear discharge, ear drainage, ear pain, ear ringing, eye pain, eye redness, hearing loss, mouth pain, mouth swelling, nasal discharge, nose bleeding, nose congestion, nose pain, photophobia, tearing, throat pain, throat swelling, voice changes, others Respiratory: denies: cough, hemoptysis, orthopnea, SOB at rest, shortness of breath, SOB with excertion, stridor, wheezing, others Cardiovascular: denies: chest pain, dizzy spells, diaphoresis, Dyspnea on exertion, edema, irregular heart beat, left arm pain, lightheadedness, palpitations, PND, syncope, others Gastrointestinal: denies: abdomen distended, abdominal pain, blood streaked bowels, constipated, diarrhea, dysphagia, difficulty swallowing, hematemesis, me kei, nausea, poor appetite, poor fluid intake, rectal bleeding, rectal pain, vomiting, others Genitourinary: denies: abnormal vagina bleeding, burning, dyspareunia, dysuria, flank pain, frequency, hematuria, incontinence, pain, , vagina discharge, urgency, others Neurological: denies: dizziness, fainting, headache, left sided numbness, left sided weakness, numbness, paresthesia, pre-existing deficit, right sided numbness, right sided weakness, seizure, speech problems, tingling, tremors, weakness, others Musculoskeletal: reports: joint pain; denies: back pain, gout, joint swelling, muscle pain, muscle stiffness, neck pain, others Integumetry: denies: bruises, change in color, change in hair/nails, dryness, laceration, lesions, lumps, rash, wounds, others Allergic/Immunocompromised: denies: Difficulty Healing, Frequent Infections, Hives, Itching, others Hematologic/Lymphatic: denies: anemia, blood clots, easy bleeding, easy bruising, swollen glands, others Endocrine: denies: excessive hunger, excessive sweating, excessive thirst, excessive urination, flushing, intolerance to cold, intolerance to heat, unexplained weight gain, unexplained weight loss, others Psychiatric: denies: anxiety, bipolar disorder, depression, hopeless, panic disorder, schizophrenia, sleepless, suicidal, others All Other Systems: Reviewed and Negative Physical Exam General Appearance: No Apparent Distress, Normal HEENT: Normal ENT Inspection, Pharynx Normal, TMs Normal Neck: Full Range of Motion, Non-Tender, Normal, Normal Inspection Respiratory: Chest Non-Tender, Lungs Clear, No Accessory Muscle Use, No Respiratory Distress, Normal Breath Sounds Cardiovascular: No Edema, No JVD, No Murmur, No Gallop, Normal Peripheral Pulses, Regular Rate/Rhythm Breast Exam: Deferred Gastrointestinal: No Organomegaly, Non Tender, No Pulsatile Mass, Normal Bowel Sounds, Soft Genitalia: Deferred Pelvic: Deferred Rectal: Deferred Extremities: No calf tenderness, Normal capillary refill, Normal range of motion, No pedal edema, Other (Left Knee: minor swelling noted, however FROM of knee while in WC) Musculoskeletal : Apperance: Normal Neurologic: Alert, fraternity adviser II-XII nml as Tested, No Motor Deficits, Normal Affect, Normal Mood, No Sensory Deficits Cerebellar Function: Normal Reflexes: Normal Skin: Dry, Normal Color, Warm Lymphatic: No Adenopathy Was a procedure done? Was a procedure done?: No Differential Dx Considerations may include: Head injury vs concussion vs intracranial hemorrhage vs knee fracture vs knee arthritis X-Ray, Labs, Meds, VS Vital Signs Date Time Temp Pulse Resp B/P (MAP) Pulse Ox O2 Delivery O2 Flow Rate FiO2 04/26/25 23:01 97.6 83 18 113/65 (81) 96 97.6 04/26/25 21:21 98.1 78 18 122/60 95 98.1 Time of 1ST Reevaluation: 23:27 (Patient tired, ready to go home) Reevaluation 1ST: Improved Patient Education/Counseling: Diagnosis, Treatment, Need For Follow Up Family Education/Counseling: Diagnosis, Treatment, Need For Follow Up SEPSIS Sepsis Screen Date sepsis recognized/suspect: Apr 26, 2025 Time Sepsis recognized/suspect: 2120 Recent Procedure: No On Antibiotic Therapy: No Respiratory Rate >20: No Heart Rate >90: No Temp<36 C (96.8 F) or >38.3 C: No SBP <90 or MAP <65 mmHG: No New Acute Mental Status Change: No Is the patient on CPAP, BIPAP,: No Physician Orders Head Without Contrast (04/26/25 21:34) L Knee 4v Xray (04/26/25 22:22) Vital Signs Date Time Temp Pulse Resp B/P (MAP) Pulse Ox O2 Delivery O2 Flow Rate FiO2 04/26/25 23:01 97.6 83 18 113/65 (81) 96 97.6 04/26/25 21:21 98.1 78 18 122/60 95 98.1 Departure 1 Departure Time of Disposition: 23:28 (69 Year-old female with past medical history of hypertension, severe arthritis, chronic pain presenting for evaluation after the patient slipped out of her wheelchair. She reports striking her head during the impact, does take anticoagulation, for this reason a CT of the head was performed which is negative for any acute intracranial process. Patient has no neck pain, no midline C-spine tenderness to palpation, does not require any CT imaging of the cervical spine as I do not suspect any underlying fracture. Patient reporting left knee pain after she fell, already has chronic arthritis, x-ray of the left knee was performed which shows severe osteoarthritis, however, no evidence of any underlying fracture. Does not require any labs given normal mental status and normal mechanical fall. Patient's glucoses in the 200s here, not within the critical range. The patient was initially written for a 1 time dose of OxyContin, however, did seem somewhat sleepy upon reassessment. Given that she already had a fall and given her age and the time of what she has in the emergency department will not give her a dose of OxyContin. Recommended that she take a dose when she gets home. I spoke to the patient's grandson and informed them of her negative CT, x-ray imaging. They stated that they will come pick the patient up and they are able to assist her into the car with her wheelchair.) Impression: Primary Impression: Blunt head trauma Additional Impressions: Fall Left knee pain Osteoarthritis of left knee Disposition: HOME / SELF CARE / HOMELESS Condition: Stable Additional Instructions: You were evaluated today after a fall, head injury. A CT scan of your head was performed which is negative for any acute intracranial process bleeding. An x- ray of the left knee only shows severe osteoarthritis, however, no evidence of any broken bones. Please continue to take your chronic pain medications as needed for discomfort. Discharged With: Self Critical Care Note Critical Care Time?: No Stability Stability form required: BRENDON Pang MD Apr 26, 2025 23:18
== END 2025-04-26 23:38 | disposition home or self-care (01) ==
LOC: ER 21:16
DX: S09.8XXA Other specified injuries of head, initial encounter (principal); M25.562 Pain in left knee; M17.12 Unilateral primary osteoarthritis, left knee; I11.0 Hypertensive heart disease with heart failure; I50.9 Heart failure, unspecified; E11.9 Type 2 diabetes mellitus without complications; F17.210 Nicotine dependence, cigarettes, uncomplicated; F41.9 Anxiety disorder, unspecified; I48.91 Unspecified atrial fibrillation; J44.89 Other specified chronic obstructive pulmonary disease; Z79.82 Long term (current) use of aspirin; Z79.891 Long term (current) use of opiate analgesic; Z79.899 Other long term (current) drug therapy; Z85.05 Personal history of malignant neoplasm of liver; Z88.5 Allergy status to narcotic agent; Z90.710 Acquired absence of both cervix and uterus; W18.39XA Other fall on same level, initial encounter; Y93.89 Activity, other specified; Y92.89 Other specified places as the place of occurrence of the external cause; Y99.8 Other external cause status
CPT/HCPCS: 70450; 73564; 82947; 82962

== ENCOUNTER 2025-05-16 21:28 | Inpatient (IN) | payer OTHER, MEDICARE, MEDICAID ==
[~2025-05-16] VITALS: Ht 160 cm; Wt 109.3 kg
--- NOTE | 2025-05-16 21:40 | ECG ---
[facility] Test Date: 2025-05-16 Test Time: 21:32:10 Pat Name: ANGELES CARRANZA Department: ED Room: [address] [place] [address] Gender: F Youth Manager: TRA : [id number] Requested By: TERE VENCES Order Number: [id number] Reading MD: Catarino Geronimo Measurements Intervals [place] Rate: 90 P: 67 AK: 43 QRS: -27 QRSD: 133 T: -24 QT: 412 QTc: 504 Interpretive Statements Sinus rhythm Ventricular premature complex Short AK interval Right bundle branch block Left ventricular hypertrophy Inferior infarct, age indeterminate Lateral leads are also involved Baseline wander in lead(s) II,III,aVR,aVF,V1,V3,V5,V6 Electronically Signed On 05-17-2025 15:08:07 PST by Catarino Geronimo Please click the below link to view image of tracing.
[2025-05-16] MEDS: SODIUM CHLORIDE 0.9% 1,000 ML IV ONE (21:58)
--- NOTE | 2025-05-16 22:10 | ED.PDOC ---
History of Present Illness HPI Comments 69-year-old, walker-dependent female is brought in by ambulance from private residence for chief complaint of altered level of consciousness and hyperglycemia. Patient has a significant history for AFib, asthma, breast cancer status post bilateral mastectomy, CHF, COPD, DM, HTN, and liver disease. Per EMS personnel report, staff responded to initial call by patient for entrapment after she endorsed on having one of her legs caught in her walker, this evening. On scene, patient's walker was no where to be seen, with patient, herself, being found confused and disorientated (A&O3), complaining of feeling thirsty. Initial Accu-Chek reading of 'HIGH.' Patient was last reported see normal by her grandchildren, who visited her, earlier, at around 4:00 p.m., today. She is also reported to take 25 units of her insulin once a week and has not taken any, today. Patient was also recently taken off hospice. EN route, patient received 500 mL of normal saline bolus via IV access. Patient denies having any chest pain, shortness of breath, polyuria, polyphagia, nausea, vomit ing, or further acute symptoms. Chief Complaint: Hyperglycemia Time Seen by MD: 21:30 Primary Care Provider: TOM Reviewed Notes: Nurses Notes, Development Administrator Notes, Medications, Allergies Allergies: Coded Allergies: Oxycodone (Verified Allergy, Severe, itching, 12/04/21) Hydromorphone (Verified Allergy, Unknown, 08/02/24) Morphine (Verified Allergy, Unknown, 09/12/19) Home Meds Active Scripts Amlodipine Besylate (NORVASC TABLET) 5 Mg Tb, 1 TAB PO DAILY for 30 Days, #30 TAB 5 Refills Prov:KIKI WALDEN RESIDENT 03/01/25 Quetiapine Fumerate (QUETIAPINE FUMARATE) 100 Mg Tab, 200 MG PO QPM for 30 Days, #60 TAB Prov:KIKI WALDEN 03/01/25 Prazosin Hcl (Minipres) 1 Mg Cp, 1 MG PO Q12HR for 30 Days, #60 CAP Prov:KIKI WALDEN 03/01/25 Lisinopril (Lisinopril) 20 Mg Tab, 40 MG PO BID for 30 Days, #120 TAB Prov:KIKI WALDEN RESIDENT 03/01/25 Gabapentin (Gabapentin) 300 Mg Cap, 600 MG PO TID for 30 Days, #90 CAP Prov:KIKI WALDEN RESIDENT 03/01/25 Carvedilol (COREG) 3.125 Mg Tab, 6.25 MG PO Q12HR for 30 Days, #120 TAB Prov:KIKI WALDEN RESIDENT 03/01/25 Rivaroxaban (XARELTO) 10 Mg Tab, 1 TAB PO DAILY, #14 TAB Prov:SENG LAUREN MD 08/03/24 Acetaminophen W/ Codeine (Tylenol W/Cod #3) 1 Tab Tb, 1 TAB PO QID PRN, #40 TAB Prov:SENG LAUREN MD 08/03/24 Ipratropium [place] (Atrovent) 0.03 % Gretel, 0.03 % NEB Q6H PRN for 30 Days Prov:SCOT MCLEOD MD 05/21/15 Reported Medications Aspirin (Aspir-81) 81 Mg Tab, 1 TAB PO DAILY, #30 TAB 5 Refills 09/12/19 Diphenhydramine Hcl (Banophen) 25 Mg Cap, 25 MG PO BID for ALLERGY, CAP 09/12/19 Escitalopram Oxalate (ESCITALOPRAM OXALATE) 20 Mg Tab, 1 TAB PO DAILY for ANXIETY, #30 TAB 5 Refills 09/12/19 Prazosin Hcl (Minipres) 1 Mg Cp, 5 CAP PO QPM for BLOOD PRESSURE, #30 CAP 2 Refills 09/12/19 Oxycodone Hcl (OxyCONTIN ER Tablet) 10 Mg Tb, 1 TAB PO BID for PAIN, #60 TAB 09/12/19 Cholecalciferol (VITAMIN D3) 2,000 Unit Tab, 1 TAB PO DAILY, #30 TAB 5 Refills 02/09/16 Potassium Chloride (KLOR-CON TABLET) 8 Meq Tb, 8 MEQ PO DAILY 05/21/15 Albuterol Sulfate (Albuterol Sulfate) 0.083 % Neb, 1 NEB QIDPRN 05/08/12 Furosemide (Lasix) 40 Mg Tab, 1 TAB PO DAILY 01/26/12 Lisinopril (Zestril) 40 Mg Tab, 1 TAB PO BID 01/26/12 Alprazolam (Xanax Xr) 2 Mg Tab, 1 TAB PO TID 01/26/12 Carisoprodol (Soma) 350 Mg Tab, 1 TAB PO TIDP PRN for FOR MUSCLE SPASM 04/23/10 Information Source: Patient, Emergency Med Personnel Mode of Arrival: EMS Severity: Moderate Timing: Hours Duration: Since onset Prehospital treatment: 12 Lead EKG, Accucheck, Plant 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 Surgical History: , Hysterectomy, Tonsillectomy Surgical History (Other): bilateral mastectomy CATERING COOK History: No Pertinent CATERING COOK History Family History Family History: Family hx of DM, Family hx of Cancer, Family hx of HTN Social History Smoker: Cigarettes Alcohol: Occasionally Drugs: Marijuana Lives In: Home All Other Systems: Reviewed and Negative (Comprehensive review of systems are negative unless otherwise stated in HPI) Physical Exam General Appearance: No Apparent Distress, Normal HEENT: Pharynx Normal, TMs Normal, Other (Dry mucous membranes, otherwise, normal ENT inspection) Neck: Full Range of Motion, Non-Tender, Normal, Normal Inspection Respiratory: Chest Non-Tender, Lungs Clear, No Accessory Muscle Use, No Respiratory Distress, Normal Breath Sounds Cardiovascular: No Edema, No JVD, No Murmur, No Gallop, Normal Peripheral Pulses, Regular Rate/Rhythm Breast Exam: Deferred Gastrointestinal: No Organomegaly, Non Tender, No Pulsatile Mass, Normal Bowel Sounds, Soft Genitalia: Deferred Pelvic: Deferred Rectal: Deferred Extremities: No calf tenderness, Normal capillary refill, Normal inspection, Normal range of motion, Non-tender, No pedal edema Musculoskeletal : Apperance: Normal Neurologic: Alert, lcpc II-XII nml as Tested, No Motor Deficits, No Sensory Deficits, Other (Oriented x2) Cerebellar Function: Normal Reflexes: Normal Skin: Dry, Normal Color, Warm Lymphatic: No Adenopathy Was a procedure done? Was a procedure done?: No EKG EKG : Pulse Rate (adult): 90 [place]: Normal Cardiac Rhythm: NSR Block: RBBB Hypertrophy: LVH ST: Normal Comments T-wave inversions in V2 and V3 Differential Dx Considerations may include: Hyperglycemia, DKA, medication noncompliance, inappropriate medication dosage, metabolic encephalopathy, CVA, TIA, among others X-Ray, Labs, Meds, VS Vital Signs Date Time Temp Pulse Resp B/P (MAP) Pulse Ox O2 Delivery O2 Flow Rate FiO2 05/16/25 22:10 90 05/16/25 22:03 Room Air* 0 21 05/16/25 21:48 97.6 87 18 167/87 (113) 97 97.6 05/16/25 21:39 97.9 98 16 136/67 96 97.9 05/16/25 21:32 90 Lab Test 05/17/25 00:00 05/16/25 22:48 05/16/25 21:50 05/16/25 21:46 Range/Units Urine Color Light-yellow Yellow Urine Clarity Clear Clear Urine pH 6.5 5.0-9.0 Urine Specific [place] 1.029 1.001-1.035 Urine Protein Negative Negative Urine Ketones Trace Negative Urine Blood Negative Negative /uL Urine Nitrite Negative Negative Urine Bilirubin Negative Negative Urine Urobilinogen Normal Negative mg/dL Urine Leukocyte Esterase Negative Negative /uL Urine RBC None seen 0 - 4 /hpf Urine Microscopic WBC < 1 0-5 /HPF Urine Squamous Epithelial Cells Few <5 /hpf Urine Bacteria None seen None Seen /hpf Urine Glucose 4+ H Normal mg/dL Urine Opiates Screen Pending Urine Fentanyl Screen Pending Urine Barbiturates Screen Pending Urine Phencyclidine Screen Pending Urine Amphetamines Screen Pending Urine Benzodiazepines Screen Pending Urine Cocaine Screen Pending Urine Cannabinoids Screen Pending Troponin I High Sensitivity < 3 L 3 L </=34 ng/L White Blood Count 9.9 4.4-10.8 10^3/uL Red Blood Count 4.46 4.0-5.20 10^6/uL Hemoglobin 14.2 12.2-16.2 g/dL Hematocrit 44.2 36.0-46.0 % Mean Corpuscular Volume 99.2 80.0-100.0 fL Mean Corpuscular Hemoglobin 31.8 28.0-32.0 pg Mean Corpuscular Hemoglobin Concent 32.0 32.0-36.0 g/dL Red Cell Distribution Width 13.9 11.8-14.3 % Platelet Count 272 140-450 10^3/uL Mean Platelet Volume 8.5 6.9-10.8 fL Neutrophils (%) (Auto) 91.9 H 37.0-80.0 % Lymphocytes (%) (Auto) 6.4 L 10.0-50.0 % Monocytes (%) (Auto) 1.5 0.0-12.0 % Eosinophils (%) (Auto) 0.0 0.0-7.0 % Basophils (%) (Auto) 0.2 0.0-2.0 % Neutrophils # (Auto) 9.1 H 1.6-8.6 10 ^3/uL Lymphocytes # (Auto) 0.6 0.4-5.4 10 ^3/uL Monocytes # (Auto) 0.1 0-1.3 10 ^3/uL Eosinophils # (Auto) 0 0-0.8 10 ^3/uL Basophils # (Auto) 0 0-0.2 10 ^3/uL Nucleated Red Blood Cells 0.1 % Prothrombin Time 10.6 9.3-11.8 sec Prothrombin Time INR 1.00 0.9-1.15 Activated Partial Thromboplast Time 23.4 L 24.5-34.5 SEC Sodium Level 135 L 136-145 mmol/L Potassium Level 4.5 3.5-5.1 mmol/L Chloride Level 104 98-107 mmol/L Carbon Dioxide Level 18 L 20-31 mmol/L Anion Gap 13 5-15 Blood Urea Nitrogen 21 9-23 mg/dL Creatinine 1.22 H 0.550-1.02 mg/dL Glomerular Filtration Rate Calc 48 >90 mL/min BUN/Creatinine Ratio 17.2 10.0-20.0 Serum Glucose 668 *H 74-106 mg/dL Calcium Level 8.8 8.7-10.4 mg/dL B-Type Natriuretic Peptide 84.45 0-100 pg/mL Lipase 41 12-53 U/L Plasma/Serum Blood Alcohol < 3.0 <10 mg/dL Blood Gas Specimen Type Venous Blood Gas Sample Site Vbg - n/a Blood Gas Patient Temperature 37.0 Arterial Blood Date Drawn Filipe Test N/a Venous Blood pH 7.317 L 7.320-7.430 Venous Blood pCO2 at Patient Temp 35.7 L 38.0-54.0 mmHg Venous Blood pO2 at Patient Temp 53.0 H 23.0-48.0 mmHg Venous Blood HCO3 17.9 L 22.0-29.0 mmol/L Venous Blood Base Excess -7.4 L -2.0-3.0 mmol/L Blood Gas Modality Room air FiO2 % 21.0 Current Medications Medications (Trade) Dose Ordered Sig/Alberto Route Start Time Stop Time Status Last Admin Sodium Chloride 1,000 ml @ 1,000 mls/hr Q1H ONCE IV 05/16/25 21:45 05/16/25 22:44 DC 05/16/25 21:58 Insulin Human Regular (InsuLIN R) 5 units ONCE ONCE IV 05/16/25 23:00 05/16/25 23:01 DC 05/16/25 23:07 [place] [id number] Ph: [phone] DIAGNOSTIC IMAGING Diagnostic Imaging Report : [id number] Signed PATIENT: ANGELES CARRANZA ACCT: [id number] UNIT: [id number] : 1955 LOC: ER ROOM / BED: / AGE / SEX: 69 / F ADM STATUS: REG ER SERVICE 39 ORDERING PHYSICIAN: TERE VENCES MD PROCEDURE(s): HWOCT - HEAD WITHOUT CONTRAST REASON: [facility] ORDER NUMBER(s): [id number], ACCESSION NUMBER(s): [id number] EXAM: CT HEAD WITHOUT CONTRAST INDICATION: AMS TECHNIQUE: CT of the head without intravenous contrast. Radiation Dose : 1. Head: CT Dose: CTDI volume is 50.2 mGy. Dose-length product is 804.91 mGy*cm The dose indicators for CT are the volume Computed Tomography (CT) Dose Index (CTDIvol) and the Dose Length Product (DLP), and are measured in units of mGy and mGy-cm, respectively. These indicators are not patient dose, but values generated from the CT scanner acquisition factors. The report includes radiation exposure data for exposures received during this examination. COMPARISON: CT HEAD WITHOUT CONTRAST on DOS: 04/26/25, CT HEAD WITHOUT CONTRAST on DOS: 02/25/25 FINDINGS: Motion artifact degrades fine detail. No acute territorial infarct, intracranial hemorrhage, or mass effect. There are global involutional changes with compensatory prominence of the ventricles and sulci. Patchy periventricular and subcortical white matter hypoattenuation is nonspecific but may be related to small vessel ischemic disease. The orbits are normal. The paranasal sinuses and mastoid air cells are clear. The osseous structures are unremarkable. IMPRESSION: 1. No acute territorial infarct, intracranial hemorrhage, or mass effect. 2. Age-related involutional changes. Chronic microvascular changes. 3. If clinical symptoms persist, MRI may be beneficial in further evaluation. Radiation optimization: All CT scans at this facility use at least one of these dose optimization techniques: automated exposure control mA and/or kV adjustment per patient size (includes targeted exams where dose is matched to clinical indication) or iterative reconstruction. ATED BY: JOSE MANUEL JUAREZ MD DICTATED DATE/TIME: 05/16/252218 SIGNED BY: JOSE MANUEL JUAREZ MD SIGNED DATE/TIME: 05/16/252218 CC: [place] [id number] Ph: [phone] DIAGNOSTIC IMAGING Diagnostic Imaging Report : [id number] Signed PATIENT: ANGELES CARRANZA ACCT: [id number] UNIT: [id number] : 1955 LOC: ER ROOM / BED: / AGE / SEX: 69 / F ADM STATUS: REG ER SERVICE 39 ORDERING PHYSICIAN: TERE VENCES MD PROCEDURE(s): CXRP - CHEST PORTABLE REASON: [facility] ORDER NUMBER(s): [id number], ACCESSION NUMBER(s): [id number] INDICATION: AMS TECHNIQUE: Frontal view of the chest. COMPARISON: XY CHEST PORTABLE on DOS: 02/26/25, XY CHEST XRAY 1 VIEW on DOS: 07/30/24, CHEST XRAY 1 VIEW on DOS: 12/02/21, CXR1 on DOS: 12/02/21, CHEST XRAY 1 VIEW on DOS: 03/18/21 FINDINGS/IMPRESSION: Possible mild left basilar opacity. Unchanged cardiomediastinal silhouette. No definite pleural effusion or pneumothorax. Unchanged osseous structures. ATED BY: JOSE MANUEL JUAREZ MD DICTATED DATE/TIME: 05/16/252238 SIGNED BY: JOSE MANUEL JUAREZ MD SIGNED DATE/TIME: 05/16/252238 CC: X-Ray, Labs, Meds, VS Comment Patient presenting with altered mental status and critically high glucose, last known well 4:00 p.m.. Patient with no external signs of trauma, and only complaint at this time is feeling thirsty. Lab work (CBC, BMP) to evaluate for evidence of severe anemia, electrolyte abnormality including hypokalemia, hyperkalemia, hypernatremia, hyponatremia, hyperglycemia, hypoglycemia, etc. EKG and troponin to evaluate for evidence of arrhythmia, ACS, AMI CT head to evaluate for intracranial hemorrhage, large mass, acute infarct, fracture Urinalysis to evaluate for hematuria or infection Chest x-ray to evaluate for pneumonia, pneumothorax volume overload IV fluids IV insulin as needed Re-evaluate Social determinant surveillance affecting care: Social determinants of health that will affect the patient's care: Poor health literacy (additional time provided an explanation) Poor access to outpatient care/followup (provided outpatient resources) Time of 1ST Reevaluation: 22:10 Reevaluation 1ST: Unchanged Patient Education/Counseling: Other (Patient is altered) Family Education/Counseling: No Family Present SEPSIS Sepsis Screen Physician Orders Venous Blood Gas (05/16/25 21:39) Chest Portable (05/16/25 21:40) Drug Screen (05/16/25 21:40) Head Without Contrast (05/16/25 21:40) Vital Signs Date Time Temp Pulse Resp B/P (MAP) Pulse Ox O2 Delivery O2 Flow Rate FiO2 05/16/25 22:10 90 05/16/25 22:03 Room Air* 0 21 05/16/25 21:48 97.6 87 18 167/87 (113) 97 97.6 05/16/25 21:39 97.9 98 16 136/67 96 97.9 05/16/25 21:32 90 Laboratory Tests Test 05/16/25 21:50 White Blood Count 9.9 10^3/uL (4.4-10.8) Medications Medications Dose Ordered Sig/Alberto Route Start Time Stop Time Status Last Admin Dose Admin Insulin Human Regular 5 units ONCE ONCE IV 05/16/25 23:00 05/16/25 23:01 DC 05/16/25 23:07 Sodium Chloride 1,000 ml @ 1,000 mls/hr Q1H ONCE IV 05/16/25 21:45 05/16/25 22:44 DC 05/16/25 21:58 Departure 1 Departure Time of Disposition: 23:43 (On reassessment, patient persistently hyperglycemic with no evidence of DKA, so given IV fluids and IV insulin. CT head unremarkable and labs otherwise within normal limits. We will admit for metabolic encephalopathy and uncontrolled diabetes) Impression: Primary Impression: Metabolic encephalopathy Additional Impressions: Uncontrolled diabetes mellitus Hyperglycemia due to diabetes mellitus Altered mental status Disposition: ADMITTED INPATIENT Admit to: Tele Condition: Serious Critical Care Note Critical Care Time?: Yes (35 min-critical care time only) Critical care comment: uncontrolled diabetes Stability Stability form required: No Heart Score Heart Score: Heart Score Response (Comments) Value History N/A 0 EKG N/A 0 Age N/A 0 Risk Factors N/A 0 Troponin N/A 0 Total 0 I personally scribed for TERE VENCES MD ([email or web address]) on 05/16/25 at 22:10. Electronically submitted by Deonte Carlisle ([email or web address]). I personally scribed for TERE VENCES MD ([email or web address]) on 05/16/25 at 23:20. Electronically submitted by Deonte Carlisle ([email or web address]). TERE VENCES MD May 16, 2025 22:10
[2025-05-16 22:16] LABS: Hematocrit 44.2 % (36.0-46.0); Hemoglobin 14.2 g/dL (12.2-16.2); Mean Corpuscular Hemoglobin 31.8 pg (28.0-32.0); Mean Corpuscular Volume 99.2 fL (80.0-100.0); Nucleated Red Blood Cells % 0.1 %
[2025-05-16 22:21] LABS: Anion Gap 13 (5-15); Chloride 104 mmol/L (98-107); Potassium 4.5 mmol/L (3.5-5.1)
[2025-05-16 22:22] LABS: Calcium 8.8 mg/dL (8.7-10.4)
--- NOTE | 2025-05-16 22:22 | DVH ---
EXAM: CT HEAD WITHOUT CONTRAST INDICATION: AMS TECHNIQUE: CT of the head without intravenous contrast. Radiation Dose : 1. Head: CT Dose: CTDI volume is 50.2 mGy. Dose-length product is 804.91 mGy*cm The dose indicators for CT are the volume Computed Tomography (CT) Dose Index (CTDIvol) and the Dose Length Product (DLP), and are measured in units of mGy and mGy-cm, respectively. These indicators are not patient dose, but values generated from the CT scanner acquisition factors. The report includes radiation exposure data for exposures received during this examination. COMPARISON: CT HEAD WITHOUT CONTRAST on DOS: 04/26/25, CT HEAD WITHOUT CONTRAST on DOS: 02/25/25 FINDINGS: Motion artifact degrades fine detail. No acute territorial infarct, intracranial hemorrhage, or mass effect. There are global involutional changes with compensatory prominence of the ventricles and sulci. Patchy periventricular and subcortical white matter hypoattenuation is nonspecific but may be related to small vessel ischemic disease. The orbits are normal. The paranasal sinuses and mastoid air cells are clear. The osseous structures are unremarkable. IMPRESSION: 1. No acute territorial infarct, intracranial hemorrhage, or mass effect. 2. Age-related involutional changes. Chronic microvascular changes. 3. If clinical symptoms persist, MRI may be beneficial in further evaluation. Radiation optimization: All CT scans at this facility use at least one of these dose optimization techniques: automated exposure control mA and/or kV adjustment per patient size (includes targeted exams where dose is matched to clinical indication) or iterative reconstruction.
[2025-05-16 22:24] LABS: Carbon Dioxide 18 mmol/L (20-31); Sodium 135 mmol/L (136-145)
[2025-05-16 22:27] LABS: BUN/Creatinine Ratio 17.2 (10.0-20.0); Blood Urea Nitrogen 21 mg/dL (9-23); INR 1.0 (0.9-1.15); Lipase 41 U/L (12-53); Partial Thromboplastin Time 23.4 SEC (24.5-34.5); Prothrombin Time 10.6 sec (9.3-11.8)
[2025-05-16 22:40] LABS: Glucose 668 mg/dL (74-106)
--- NOTE | 2025-05-16 22:42 | DVH ---
INDICATION: AMS TECHNIQUE: Frontal view of the chest. COMPARISON: XY CHEST PORTABLE on DOS: 02/26/25, XY CHEST XRAY 1 VIEW on DOS: 07/30/24, CHEST XRAY 1 VIEW on DOS: 12/02/21, CXR1 on DOS: 12/02/21, CHEST XRAY 1 VIEW on DOS: 03/18/21 FINDINGS/IMPRESSION: Possible mild left basilar opacity. Unchanged cardiomediastinal silhouette. No definite pleural effusion or pneumothorax. Unchanged osseous structures.
[2025-05-16] MEDS: InsuLIN REG 1unit/0.01ml Soln (100units/ml) IV ONE (23:07)
--- NOTE | 2025-05-17 00:28 | DVHHP2 ---
Admitting Diagnosis: Hyperglycemia History of Present Illness 69 y/o female patient with hx of DM, HTN, A-fib, CHF, COPD, mastectomy presents with hyperglycemia. Patient also presents with confusion. Patient reportedly complained of her leg being trapped in her walker, however there was no walker near patient. Initialy Accu-Chek read as "HIGH". While in the emergency department the patient was evaluated by the provider, As per provider: Labs, vital signs, and imagining monitored. Patient will be admitted for further evaluation and treatment. I discussed admission with the patient/family and is in agreement to treatment plan. Patient Family History: Cancer G8 FATHER (LUNG) G8 BROTHER G8 SISTER (BREAST) FH: kidney disease G8 MOTHER Family history: Cardiovascular disease G8 MOTHER Family history: Diabetes mellitus G8 MOTHER Family history: Hypertension G8 MOTHER Allergies: Coded Allergies: Oxycodone (Verified Allergy, Severe, itching, 12/04/21) Hydromorphone (Verified Allergy, Unknown, 08/02/24) Morphine (Verified Allergy, Unknown, 09/12/19) Home Meds Active Scripts Amlodipine Besylate (NORVASC TABLET) 5 Mg Tb, 1 TAB PO DAILY for 30 Days, #30 TAB 5 Refills Prov[place] [place] [facility] Quetiapine Fumerate (QUETIAPINE FUMARATE) 100 Mg Tab, 200 MG PO QPM for 30 Days, #60 TAB Prov:[place]KIKI [facility] 03/01/25 Prazosin Hcl (Minipres) 1 Mg Cp, 1 MG PO Q12HR for 30 Days, #60 CAP Prov:KIKI [facility] [facility] [place] 03/01/25 Lisinopril (Lisinopril) 20 Mg Tab, 40 MG PO BID for 30 Days, #120 TAB Prov:[facility]IKI [facility] [place] 03/01/25 Gabapentin (Gabapentin) 300 Mg Cap, 600 MG PO TID for 30 Days, #90 CAP Prov:[facility]I [facility] [place] 03/01/25 Carvedilol (COREG) 3.125 Mg Tab, 6.25 MG PO Q12HR for 30 Days, #120 TAB Prov:[facility] [place] 03/01/25 Rivaroxaban (XARELTO) 10 Mg Tab, 1 TAB PO DAILY, #14 TAB Prov:SENG LAUREN MD 08/03/24 Acetaminophen W/ Codeine (Tylenol W/Cod #3) 1 Tab Tb, 1 TAB PO QID PRN, #40 TAB Prov:SENG LAUREN MD 08/03/24 Ipratropium Golden (Atrovent) 0.03 % Gretel, 0.03 % NEB Q6H PRN for 30 Days Prov:SCOT MCLEOD MD 05/21/15 Reported Medications Aspirin (Aspir-81) 81 Mg Tab, 1 TAB PO DAILY, #30 TAB 5 Refills 09/12/19 Diphenhydramine Hcl (Banophen) 25 Mg Cap, 25 MG PO BID for ALLERGY, CAP 09/12/19 Escitalopram Oxalate (ESCITALOPRAM OXALATE) 20 Mg Tab, 1 TAB PO DAILY for ANXIETY, #30 TAB 5 Refills 09/12/19 Prazosin Hcl (Minipres) 1 Mg Cp, 5 CAP PO QPM for BLOOD PRESSURE, #30 CAP 2 Refills 09/12/19 Oxycodone Hcl (OxyCONTIN ER Tablet) 10 Mg Tb, 1 TAB PO BID for PAIN, #60 TAB 09/12/19 Cholecalciferol (VITAMIN D3) 2,000 Unit Tab, 1 TAB PO DAILY, #30 TAB 5 Refills 02/09/16 Potassium Chloride (KLOR-CON TABLET) 8 Meq Tb, 8 MEQ PO DAILY 05/21/15 Albuterol Sulfate (Albuterol Sulfate) 0.083 % Neb, 1 NEB QIDPRN 05/08/12 Furosemide (Lasix) 40 Mg Tab, 1 TAB PO DAILY 01/26/12 Lisinopril (Zestril) 40 Mg Tab, 1 TAB PO BID 01/26/12 Alprazolam (Xanax Xr) 2 Mg Tab, 1 TAB PO TID 01/26/12 Carisoprodol (Soma) 350 Mg Tab, 1 TAB PO TIDP PRN for FOR MUSCLE SPASM 04/23/10 Current Medications Current Medications Medications (Trade) Dose Ordered Sig/Alberto Route PRN Reason Start Time Stop Time Status Last Admin Sodium Chloride 1,000 ml @ 120 mls/hr Q8H20M IV 05/17/25 00:30 05/17/25 17:35 Ondansetron HCl (Zofran) 4 mg Q4HP PRN IV NAUSEA / VOMITING 05/17/25 00:30 Docusate Sodium (Colace Capsule) 100 mg BIDPRN PRN PO FOR CONSTIPATION 05/17/25 00:30 Enoxaparin Sodium (Lovenox) 40 mg DAILY SC 05/17/25 10:00 05/17/25 15:10 DC 05/17/25 10:09 Acetaminophen (Tylenol Tablet) 650 mg Q6HP PRN PO PAIN SCALE 1-3 OR TEMP>100.4 05/17/25 00:30 Nitroglycerin (Ntrostat Sublingual) 0.4 mg Q5MINP PRN SL FOR CHEST PAIN 05/17/25 00:30 Insulin Glargine (Lantus) 10 units BID@0700,2200 SC 05/17/25 07:00 05/17/25 06:48 Diagnostic Test (Pha) (Accu-Chek Comfort Curve T) 1 strip IQ4HR 05/17/25 04:00 05/17/25 20:22 Insulin Human Regular (InsuLIN R) IQ4HR SC 05/17/25 04:00 05/17/25 15:08 DC 05/17/25 07:46 Dextrose 50 ml UD PRN IV Blood Sugar LESS THAN 60 05/17/25 00:30 Hydralazine HCl (Apresoline Injection) 10 mg Q6HP PRN IV SBP>150 05/17/25 09:00 05/17/25 20:33 Insulin Human Regular (InsuLIN R) HS SC 05/17/25 22:00 Insulin Human Regular (InsuLIN R) AC SC 05/17/25 17:00 Amlodipine Besylate (Norvasc Tablet) 5 mg DAILY PO 05/18/25 10:00 Aspirin (Ecotrin Enteric Coated Tablet) 81 mg DAILY PO 05/18/25 10:00 Carvedilol (Coreg Tablet) 6.25 mg Q12HR PO 05/17/25 22:00 05/17/25 21:10 Gabapentin (Neurontin Capsule) 600 mg TID PO 05/17/25 22:00 Lisinopril (Zestril Tablet) 40 mg BID PO 05/17/25 22:00 05/17/25 21:10 Quetiapine Fumarate (SEROquel TABLET) 200 mg QPM PO 05/17/25 18:00 Review of Systems Constitutional: denies chills, denies fever, denies malaise Eyes: denies eye pain, denies vision change ENT: denies ear pain, denies headache, denies nasal congestion, denies painful swallowing, denies voice change Cardiovascular: denies chest pain, denies edema, denies orthopnea, denies palpitations, denies paroxysmal nocturnal dyspnea Respiratory: denies cough, denies shortness of breath Gastrointestinal: denies constipation, denies diarrhea, denies nausea, denies vomiting Genitourinary: denies dysuria, denies frequent urination, denies urethral discharge Musculoskeletal: denies back pain, denies joint pain, denies muscle pain Skin: denies bruising, denies itching, denies rash Neurological: denies focal weakness, denies headache, denies sensory changes Psychiatric: denies anxiety, denies depression Endocrine: denies polydipsia, denies polyuria Hematologic/Lymphatic: denies easy bleeding, denies easy bruising, denies enlarged lymph nodes Allergic/Immunologic: denies allergy, denies hives Vital Signs Vital Signs Date Time Temp Pulse Resp B/P (MAP) Pulse Ox O2 Delivery O2 Flow Rate FiO2 05/17/25 21:10 172/83 05/17/25 21:10 96 05/17/25 19:30 95 Room Air* 0 21 05/17/25 19:30 12 05/17/25 07:27 97.7 97.7 Physical Exam General Appearance: alert, no distress HEENT: EOMI, PERRLA, normal external inspect of ears, no icterus, no nasal drainage Neck: no carotid bruit, no jugular venous distention (JVD), no lymphadenopathy Chest: normal thorax Respiratory: clear to auscultation, normal air movement Cardiovascular: regular rate and rhythm, no diastolic murmur, no jugular venous distention (JVD), no rub, no systolic murmur Abdominal: soft, no hepatomegaly, no mass, no splenomegaly, no tenderness Genitourinary: grossly normal external Musculoskeletal: no joint tenderness, no swelling Extremities: normal pulses, no calf tenderness, no clubbing, no cyanosis, no edema Skin: no bruising, no jaundice, no rash Neurological: alert, No focal deficit SEPSIS Sepsis Screen Date sepsis recognized/suspect: May 16, 2025 Time Sepsis recognized/suspect: 2201 Recent Procedure: No On Antibiotic Therapy: No Respiratory Rate >20: No Heart Rate >90: No Temp<36 C (96.8 F) or >38.3 C: No SBP <90 or MAP <65 mmHG: No New Acute Mental Status Change: Yes Is the patient on CPAP, BIPAP,: No Physician Orders Electrocardigram (05/16/25 21:36) Venous Blood Gas (05/16/25 21:39) Chest Portable (05/16/25 21:40) Head Without Contrast (05/16/25 21:40) Admit (05/17/25 00:21) Code Status (05/17/25 00:21) Sodium Chloride 0.9% (05/17/25 00:30) Oxygen Per Hour (05/17/25 00:21) Ondansetron Hcl (Zofran) (05/17/25 00:30) Docusate Sodium Capsule (Colace Capsule) (05/17/25 00:30) Complete Blood Count (05/18/25 04:00) Comprehensive Metabolic Panel (05/18/25 04:00) Condition: Serious (05/17/25 00:21) Acetaminophen Tablet (Tylenol Tablet) (05/17/25 00:30) Sequential Compression Device (05/17/25 ) Nitroglycerin Sublingual (Ntrostat Subli (05/17/25 00:30) Stat Ekg For Chest Pain (05/17/25 00:21) Notify Md Of Changes From Base (05/17/25 00:21) Extrusion Process Operator For 24 Hours (05/17/25 00:21) Emergency Dysrhythmia Protocol (05/17/25 00:21) Rhythm Strips Once Every Shift (05/17/25 00:21) Oxygen By Nasal Cannula (05/17/25 00:21) Insulin Lantus (Glargine) (Lantus) (05/17/25 07:00) Glucose Blood (Accu-Chek Comfort Curve T (05/17/25 04:00) Dextrose 50% Syringe (05/17/25 00:30) Urinalysis (05/17/25 00:27) Spark Plug Assembler (05/17/25 ) Hydralazine Injection (Apresoline Inject (05/17/25 09:00) Consistent Carb(Ccho)Diabetes (05/17/25 Lunch) Insulin R (Human) (Insulin R) (05/17/25 22:00) Insulin R (Human) (Insulin R) (05/17/25 17:00) Amlodipine Tablet (Norvasc Tablet) (05/18/25 10:00) Aspirin Enteric Coated Tablet (Ecotrin E (05/18/25 10:00) Carvedilol Tablet (Coreg Tablet) (05/17/25 22:00) Gabapentin Capsule (Neurontin Capsule) (05/17/25 22:00) Lisinopril Tablet (Zestril Tablet) (05/17/25 22:00) Quetiapine Fumarate Tablet (Seroquel Tab (05/17/25 18:00) Vital Signs Date Time Temp Pulse Resp B/P (MAP) Pulse Ox O2 Delivery O2 Flow Rate FiO2 05/17/25 21:10 172/83 05/17/25 21:10 96 172/83 05/17/25 20:33 181/76 05/17/25 20:00 92 05/17/25 19:30 95 Room Air* 0 21 05/17/25 19:30 82 12 172/78 (109) 94 05/17/25 18:30 78 94 154/83 (106) 94 05/17/25 16:54 83 13 166/78 (107) 97 05/17/25 16:23 85 05/17/25 15:00 79 18 148/59 (88) 94 05/17/25 13:00 71 16 168/71 (103) 97 05/17/25 12:00 77 05/17/25 11:00 68 18 126/97 (107) 98 05/17/25 09:40 63 18 135/60 (85) 95 05/17/25 08:00 71 05/17/25 07:27 68 17 95 Room Air* 0 21 05/17/25 07:27 97.7 68 16 179/79 (112) 95 97.7 05/17/25 06:00 81 12 165/107 (126) 96 05/17/25 05:00 77 15 133/101 (112) 97 05/17/25 04:00 72 16 150/90 (110) 97 05/17/25 03:00 78 12 144/66 (92) 95 05/17/25 01:00 80 13 124/104 (111) 98 05/16/25 22:10 90 05/16/25 22:03 Room Air* 0 21 05/16/25 21:48 97.6 87 18 167/87 (113) 97 97.6 05/16/25 21:39 97.9 98 16 136/67 96 97.9 05/16/25 21:32 90 Laboratory Tests Test 05/16/25 21:50 White Blood Count 9.9 10^3/uL (4.4-10.8) Medications Medications Dose Ordered Sig/Alberto Route Start Time Stop Time Status Last Admin Dose Admin Carvedilol 6.25 mg Q12HR PO 05/17/25 22:00 05/17/25 21:10 Enoxaparin Sodium 40 mg DAILY SC 05/17/25 10:00 05/17/25 15:10 DC 05/17/25 10:09 Lisinopril 40 mg BID PO 05/17/25 22:00 05/17/25 21:10 Results Labs Test 05/17/25 16:50 05/17/25 15:29 05/17/25 00:00 05/16/25 22:48 Range/Units POC Glucose 96 70-106 mg/dl Sodium Level 147 #H 136-145 mmol/L Potassium Level 3.0 L 3.5-5.1 mmol/L Chloride Level 116 #H 98-107 mmol/L Carbon Dioxide Level 20 20-31 mmol/L Anion Gap 11 5-15 Blood Urea Nitrogen 13 9-23 mg/dL Creatinine 0.69 # 0.550-1.02 mg/dL Glomerular Filtration Rate Calc 93 >90 mL/min BUN/Creatinine Ratio 18.8 10.0-20.0 Serum Glucose 66 L 74-106 mg/dL Calcium Level 8.9 8.7-10.4 mg/dL Phosphorus Level 2.5 2.4-5.1 mg/dL Magnesium Level 1.7 1.6-2.6 mg/dL Urine Color Light-yellow Yellow Urine Clarity Clear Clear Urine pH 6.5 5.0-9.0 Urine Specific Bennett 1.029 1.001-1.035 Urine Protein Negative Negative Urine Ketones Trace Negative Urine Blood Negative Negative /uL Urine Nitrite Negative Negative Urine Bilirubin Negative Negative Urine Urobilinogen Normal Negative mg/dL Urine Leukocyte Esterase Negative Negative /uL Urine RBC None seen 0 - 4 /hpf Urine Microscopic WBC < 1 0-5 /HPF Urine Squamous Epithelial Cells Few <5 /hpf Urine Bacteria None seen None Seen /hpf Urine Glucose 4+ H Normal mg/dL Urine Opiates Screen Neg NEGATIVE Urine Fentanyl Screen Neg NEGATIVE Urine Barbiturates Screen Neg NEGATIVE Urine Phencyclidine Screen Pos NEGATIVE Urine Amphetamines Screen Neg NEGATIVE Urine Benzodiazepines Screen Neg NEGATIVE Urine Cocaine Screen Neg NEGATIVE Urine Cannabinoids Screen Neg NEGATIVE Troponin I High Sensitivity < 3 L </=34 ng/L Test 05/16/25 21:50 05/16/25 21:46 Range/Units White Blood Count 9.9 4.4-10.8 10^3/uL Red Blood Count 4.46 4.0-5.20 10^6/uL Hemoglobin 14.2 12.2-16.2 g/dL Hematocrit 44.2 36.0-46.0 % Mean Corpuscular Volume 99.2 80.0-100.0 fL Mean Corpuscular Hemoglobin 31.8 28.0-32.0 pg Mean Corpuscular Hemoglobin Concent 32.0 32.0-36.0 g/dL Red Cell Distribution Width 13.9 11.8-14.3 % Platelet Count 272 140-450 10^3/uL Mean Platelet Volume 8.5 6.9-10.8 fL Neutrophils (%) (Auto) 91.9 H 37.0-80.0 % Lymphocytes (%) (Auto) 6.4 L 10.0-50.0 % Monocytes (%) (Auto) 1.5 0.0-12.0 % Eosinophils (%) (Auto) 0.0 0.0-7.0 % Basophils (%) (Auto) 0.2 0.0-2.0 % Neutrophils # (Auto) 9.1 H 1.6-8.6 10 ^3/uL Lymphocytes # (Auto) 0.6 0.4-5.4 10 ^3/uL Monocytes # (Auto) 0.1 0-1.3 10 ^3/uL Eosinophils # (Auto) 0 0-0.8 10 ^3/uL Basophils # (Auto) 0 0-0.2 10 ^3/uL Nucleated Red Blood Cells 0.1 % Prothrombin Time 10.6 9.3-11.8 sec Prothrombin Time INR 1.00 0.9-1.15 Activated Partial Thromboplast Time 23.4 L 24.5-34.5 SEC B-Type Natriuretic Peptide 84.45 0-100 pg/mL Lipase 41 12-53 U/L Plasma/Serum Blood Alcohol < 3.0 <10 mg/dL Blood Gas Specimen Type Venous Blood Gas Sample Site Vbg - n/a Blood Gas Patient Temperature 37.0 Arterial Blood Date Drawn Filipe Test N/a Venous Blood pH 7.317 L 7.320-7.430 Venous Blood pCO2 at Patient Temp 35.7 L 38.0-54.0 mmHg Venous Blood pO2 at Patient Temp 53.0 H 23.0-48.0 mmHg Venous Blood HCO3 17.9 L 22.0-29.0 mmol/L Venous Blood Base Excess -7.4 L -2.0-3.0 mmol/L Blood Gas Modality Room air FiO2 % 21.0 Plan 1. DM, uncontrolled Monitor, insulin ss, IV fluids 2. COPD Monitor, medications 3. Hx breast cancer Monitor 4. S/p bilateral mastectomy Monitor 5. Benign essential HTN Monitor, medications Plan discussed with: Patient, Other MARINE TANNER NP May 17, 2025 00:28
[2025-05-17] MEDS ORDERED: NITROGLYCERIN 0.4 MG SL TAB SL PRN (00:30)
[2025-05-17] MEDS ORDERED: DOCUSATE SOD 100 MG CAP PO PRN (00:30)
[2025-05-17] MEDS ORDERED: ONDANSETRON HCL 4 MG/2 ML VIAL IV PRN (00:30)
[2025-05-17] MEDS ORDERED: DEXTROSE (50%) 50ML SYRG IV PRN (00:30)
[2025-05-17] MEDS: SODIUM CHLORIDE 0.9% 1,000 ML IV ONE (00:38)
[2025-05-17] MEDS: InsuLIN REG 1unit/0.01ml Soln (100units/ml) IV ONE (00:42)
[2025-05-17 00:49] LABS: Urine Protein, UAD Negative (Negative)
[2025-05-17 01:36] LABS: Cannabinoid Screen, Urine Neg (NEGATIVE); Opiate Scree,Urine Neg (NEGATIVE)
[2025-05-17 01:38] LABS: Amphetamine Screen, Urine Neg (NEGATIVE); Barbiturate Scree,Urine Neg (NEGATIVE); Benzodiazephine Screen, Urine Neg (NEGATIVE); Cocaine Screen, Urine Neg (NEGATIVE); Phencyclidine Screen, Urine Pos (NEGATIVE)
[2025-05-17] MEDS: SODIUM CHLORIDE 0.9% 1,000 ML IV SCH (02:22)
[2025-05-17] MEDS: ACCU-CHEK COMFORT CURVE STRIP VI SCH (03:35)
[2025-05-17] MEDS: InsuLIN REG 1unit/0.01ml Soln (100units/ml) SC SCH ×3 (03:37→22:45)
[2025-05-17] MEDS: INSULIN LANTUS (GLARGINE) 1 /0.01ml (100units/ml) SC SCH (06:48)
[2025-05-17 07:27] VITALS: PULSE 68; RESP 17; O2SAT 95
[2025-05-17] MEDS: ENOXAPARIN SOD 40 MG/0.4 ML SYRINGE SC SCH (10:09)
[2025-05-17 15:57] LABS: Calcium 8.9 mg/dL (8.7-10.4); Carbon Dioxide 20 mmol/L (20-31)
[2025-05-17 16:02] LABS: Anion Gap 11 (5-15); BUN/Creatinine Ratio 18.8 (10.0-20.0); Blood Urea Nitrogen 13 mg/dL (9-23); Magnesium 1.7 mg/dL (1.6-2.6)
[2025-05-17 16:04] LABS: Chloride 116 mmol/L (98-107); Potassium 3.0 mmol/L (3.5-5.1); Sodium 147 mmol/L (136-145)
[2025-05-17 16:05] LABS: Glucose 66 mg/dL (74-106)
[2025-05-17 19:30] VITALS: O2SAT 95
[2025-05-17] MEDS: hydrALAZINE HCL 20 MG/ML VL IV PRN (20:33)
[2025-05-17] MEDS: CARVEDILOL 3.125 MG TAB PO SCH (21:10)
[2025-05-17] MEDS: LISINOPRIL 20 MG TAB PO SCH (21:10)
[2025-05-17 21:25] VITALS: BP 154/77; PULSE 66; RESP 16; TEMP 97.6; O2SAT 100
[2025-05-17] MEDS: GABAPENTIN 300 MG CAP PO SCH (22:42)
[2025-05-18] VITALS (7 sets, daily range): BP systolic 122–152; BP diastolic 72–89; PULSE 63–77; RESP 16–19; TEMP 36.6; O2SAT 95–98
[2025-05-18] MEDS: ACETAMINOPHEN 325 MG TAB PO PRN (05:20)
[2025-05-18 06:03] LABS: Hematocrit 42.1 % (36.0-46.0); Hemoglobin 13.9 g/dL (12.2-16.2); Mean Corpuscular Hemoglobin 31.6 pg (28.0-32.0); Mean Corpuscular Volume 95.8 fL (80.0-100.0); Nucleated Red Blood Cells % 0.1 %
[2025-05-18 06:31] LABS: Alkaline Phosphatase 72 U/L (46-116); Anion Gap 12 (5-15); Carbon Dioxide 22 mmol/L (20-31); Sodium 144 mmol/L (136-145); Total Protein 6.0 g/dL (5.7-8.2)
[2025-05-18 06:32] LABS: Bilirubin, Total 0.4 mg/dL (0.2-1.0)
[2025-05-18 06:36] LABS: BUN/Creatinine Ratio 21.6 (10.0-20.0); Blood Urea Nitrogen 16 mg/dL (9-23)
[2025-05-18 06:42] LABS: Alanine Aminotransferase 41 U/L (7-40); Albumin 3.1 g/dL (3.2-4.8); Calcium 8.6 mg/dL (8.7-10.4); Chloride 110 mmol/L (98-107); Glucose 156 mg/dL (74-106); Potassium 3.2 mmol/L (3.5-5.1)
[2025-05-18] MEDS: ASPirin-EC 81 mg tab PO SCH (10:05)
--- NOTE | 2025-05-18 10:43 | DVHDS2 ---
Discharge Summary Date of Admission May 17, 2025 at 00:21 Date of Discharge: May 18, 2025 Labs/Diagnostic Data: Laboratory Results Test 05/18/25 05:44 05/18/25 05:09 05/17/25 15:29 05/17/25 00:00 POC Glucose 156 mg/dl (70-106) White Blood Count 9.2 10^3/uL (4.4-10.8) Red Blood Count 4.39 10^6/uL (4.0-5.20) Hemoglobin 13.9 g/dL (12.2-16.2) Hematocrit 42.1 % (36.0-46.0) Mean Corpuscular Volume 95.8 fL (80.0-100.0) Mean Corpuscular Hemoglobin 31.6 pg (28.0-32.0) Mean Corpuscular Hemoglobin Concent 33.0 g/dL (32.0-36.0) Red Cell Distribution Width 13.5 % (11.8-14.3) Platelet Count 258 10^3/uL (140-450) Mean Platelet Volume 8.0 fL (6.9-10.8) Neutrophils (%) (Auto) 43.0 % (37.0-80.0) Lymphocytes (%) (Auto) 45.6 % (10.0-50.0) Monocytes (%) (Auto) 9.0 % (0.0-12.0) Eosinophils (%) (Auto) 2.0 % (0.0-7.0) Basophils (%) (Auto) 0.4 % (0.0-2.0) Neutrophils # (Auto) 4.0 10 ^3/uL (1.6-8.6) Lymphocytes # (Auto) 4.2 10 ^3/uL (0.4-5.4) Monocytes # (Auto) 0.8 10 ^3/uL (0-1.3) Eosinophils # (Auto) 0.2 10 ^3/uL (0-0.8) Basophils # (Auto) 0 10 ^3/uL (0-0.2) Nucleated Red Blood Cells 0.1 % Sodium Level 144 mmol/L (136-145) Potassium Level 3.2 mmol/L (3.5-5.1) Chloride Level 110 mmol/L (98-107) Carbon Dioxide Level 22 mmol/L (20-31) Anion Gap 12 (5-15) Blood Urea Nitrogen 16 mg/dL (9-23) Creatinine 0.74 mg/dL (0.550-1.02) Glomerular Filtration Rate Calc 87 mL/min (>90) BUN/Creatinine Ratio 21.6 (10.0-20.0) Serum Glucose 156 mg/dL (74-106) Calcium Level 8.6 mg/dL (8.7-10.4) Total Bilirubin 0.4 mg/dL (0.2-1.0) Aspartate Amino Transferase (AST) 46 U/L (13-40) Alanine Aminotransferase (ALT) 41 U/L (7-40) Alkaline Phosphatase 72 U/L (46-116) Total Protein 6.0 g/dL (5.7-8.2) Albumin 3.1 g/dL (3.2-4.8) Phosphorus Level 2.5 mg/dL (2.4-5.1) Magnesium Level 1.7 mg/dL (1.6-2.6) Urine Color Light-yellow (Yellow) Urine Clarity Clear (Clear) Urine pH 6.5 (5.0-9.0) Urine Specific Priddy 1.029 (1.001-1.035) Urine Protein Negative (Negative) Urine Ketones Trace (Negative) Urine Blood Negative /uL (Negative) Urine Nitrite Negative (Negative) Urine Bilirubin Negative (Negative) Urine Urobilinogen Normal mg/dL (Negative) Urine Leukocyte Esterase Negative /uL (Negative) Urine RBC None seen /hpf (0 - 4) Urine Microscopic WBC < 1 /HPF (0-5) Urine Squamous Epithelial Cells Few /hpf (<5) Urine Bacteria None seen /hpf (None Seen) Urine Glucose 4+ mg/dL (Normal) Urine Opiates Screen Neg (NEGATIVE) Urine Fentanyl Screen Neg (NEGATIVE) Urine Barbiturates Screen Neg (NEGATIVE) Urine Phencyclidine Screen Pos (NEGATIVE) Urine Amphetamines Screen Neg (NEGATIVE) Urine Benzodiazepines Screen Neg (NEGATIVE) Urine Cocaine Screen Neg (NEGATIVE) Urine Cannabinoids Screen Neg (NEGATIVE) Test 05/16/25 22:48 05/16/25 21:50 05/16/25 21:46 Troponin I High Sensitivity < 3 ng/L (</=34) Prothrombin Time 10.6 sec (9.3-11.8) Prothrombin Time INR 1.00 (0.9-1.15) Activated Partial Thromboplast Time 23.4 SEC (24.5-34.5) B-Type Natriuretic Peptide 84.45 pg/mL (0-100) Lipase 41 U/L (12-53) Plasma/Serum Blood Alcohol < 3.0 mg/dL (<10) Blood Gas Specimen Type Venous Blood Gas Sample Site Vbg - n/a Blood Gas Patient Temperature 37.0 Arterial Blood Date Drawn Filipe Test N/a Venous Blood pH 7.317 (7.320-7.430) Venous Blood pCO2 at Patient Temp 35.7 mmHg (38.0-54.0) Venous Blood pO2 at Patient Temp 53.0 mmHg (23.0-48.0) Venous Blood HCO3 17.9 mmol/L (22.0-29.0) Venous Blood Base Excess -7.4 mmol/L (-2.0-3.0) Blood Gas Modality Room air FiO2 % 21.0 Other Laboratory Tests 05/18/25 05:09 Brief Hx & Hospital Course: 69 y/o female patient with hx of DM, HTN, A-fib, CHF, COPD, mastectomy presents with hyperglycemia. Patient also presents with confusion. Patient reportedly complained of her leg being trapped in her walker, however there was no walker near patient. Initialy Accu-Chek read as "HIGH". Patient was admitted with the revocation of hospice. Patient's glucose levels were apparently over 600. Patient was not in DKA. Patient was given insulin sliding scale and IV fluids. Patient's condition improved. Patient also had uncontrolled high blood pressure with her blood pressure as high as 179/79. Blood pressure medications were adjusted. Patient was placed on insulin sliding scale. Electrolytes were checked and replaced as needed. Glucose levels were stable in the 150s. Patient's mentation was at baseline. I attempted to call next of kin Owen and Jodie. One phone number is disconnected and other phone number went straight to voicemail. Hospice was resumed. Patient will follow-up with hospice provider. Patient was discharged in stable condition into the care of her grandchildren. The patient received proper medical treatment and medications. Vital signs, Imaging and Laboratory Work was monitored daily. All consults recommendations were followed as provided. There were no complaints or new complaints upon discharge, all questions and concerns were answered. Patient was advised to return to the ER or call 911 if any headaches, dizziness, shortness of breath, chest pain, bleeding, fevers, or worsening of medical condition. Patient/Family was counseled about treatment plan, medications, possible side effects, patient verbalized understanding. All questions were answered to the best of my ability. The patient symptoms improved and they are okay to be DC. Condition at Discharge: Stable Final Diagnosis/Problems List Uncontrolled glucose Discharge Disposition: Hospice - Home Discharge Instruct/Medications Diet: Consistent carbohydrate Activity: No Restrictions, As Tolerated Medications: continue home meds Scheduled Albuterol Sulfate (Albuterol Sulfate), 1 NEB QIDPRN, (Reported) Alprazolam (Xanax Xr), 1 TAB PO TID, (Reported) Amlodipine Besylate (Norvasc Tablet), 1 TAB PO DAILY Aspirin (Aspir-81), 1 TAB PO DAILY, (Reported) Carvedilol (Coreg), 6.25 MG PO Q12HR Cholecalciferol (Vitamin D3), 1 TAB PO DAILY, (Reported) Diphenhydramine Hcl (Banophen), 25 MG PO BID, (Reported) Escitalopram Oxalate (Escitalopram Oxalate), 1 TAB PO DAILY, (Reported) Furosemide (Lasix), 1 TAB PO DAILY, (Reported) Gabapentin (Gabapentin), 600 MG PO TID Lisinopril (Lisinopril), 40 MG PO BID Oxycodone Hcl (OxyCONTIN ER Tablet), 1 TAB PO BID, (Reported) Potassium Chloride (Klor-Con Tablet), 8 MEQ PO DAILY, (Reported) Prazosin Hcl (Minipres), 5 CAP PO QPM, (Reported) Prazosin Hcl (Minipres), 1 MG PO Q12HR Quetiapine Fumerate (Quetiapine Fumarate), 200 MG PO QPM Rivaroxaban (Xarelto), 1 TAB PO DAILY Scheduled PRN Acetaminophen W/ Codeine (Tylenol W/Cod #3), 1 TAB PO QID PRN Carisoprodol (Soma), 1 TAB PO TIDP PRN for FOR MUSCLE SPASM, (Reported) Ipratropium [place] (Atrovent), 0.03 % NEB Q6H PRN Discontinued Medications Lisinopril (Zestril), 1 TAB PO BID, (Reported) Discharge Statement: "Patient was advised to return to the ER or call 911 if any headaches, dizziness, shortness of breath, chest pain, abdominal pain, bleeding, fevers, or worsening of medical condition. Patient was counseled about treatment plan, medications, possible side effects, patientverbalized understanding. All questions were answered to the best of my ability. This discharge took greater then 30 minutes in planning, reviewing documentation, counseling the patient, and discussing with other team members." ASSESSMENT ASSESSMENT Assessment Uncontrolled glucose MARINE TANNER VENEER SORTER May 18, 2025 10:43
[2025-05-18] MEDS ORDERED: THROAT LOZENGES(CEPASTAT) MT PRN (10:45)
[2025-05-18] MEDS: ACCU-CHEK COMFORT CURVE STRIP VI SCH (11:10)
[2025-05-18] MEDS ORDERED: diphenhydrAMINE HCL 50 MG/1 ML VL IV PRN (11:15)
== END 2025-05-18 18:03 | disposition hospice, home (50) | DRG 637 ==
LOC: ER 21:28 → EDBD 21:28 → OVERFLOW 05-17 00:21 → TELE-CENTR 05-17 22:26
PROVIDERS: ADMIT Nurse Practitioner; ATTEND Nurse Practitioner
DX: E11.65 Type 2 diabetes mellitus with hyperglycemia (principal); G93.41 Metabolic encephalopathy; N17.0 Acute kidney failure with tubular necrosis; I11.0 Hypertensive heart disease with heart failure; J44.89 Other specified chronic obstructive pulmonary disease; Z51.5 Encounter for palliative care; I48.91 Unspecified atrial fibrillation; F41.9 Anxiety disorder, unspecified; F17.210 Nicotine dependence, cigarettes, uncomplicated; Z88.5 Allergy status to narcotic agent; Z79.82 Long term (current) use of aspirin; Z79.899 Other long term (current) drug therapy; Z90.710 Acquired absence of both cervix and uterus; Z90.13 Acquired absence of bilateral breasts and nipples; Z85.3 Personal history of malignant neoplasm of breast; Z83.3 Family history of diabetes mellitus; Z82.49 Family history of ischemic heart disease and other diseases of the circulatory system; Z79.4 Long term (current) use of insulin
CPT/HCPCS: 36415; 36600; 70450; 71045; 80048; 80053; 80307; 80320; 81001; 82805; 82962; 83690; 83735; 83880; 84100; 84484; 85025; 85610; 85730; 93005; 96361; 96374; 99291; G0378; J1815